=== PATIENT | female | born 1955 ===

== ENCOUNTER 2018-07-27 13:54 | Inpatient (IN) | payer MEDICARE, MEDICAID ==
--- NOTE | 2018-07-27 14:36 | C.PDOC ---
History Of Present Illness 63 year old female presents to the emergency department with complaints of a sudden onset of dizziness and fell at her half-way, injuring her left knee. Upon EMS arrival, patient was described as hypotensive with "blue lips". Patient has no complaints here at this time. She denies chest pain, shortness of breath, headache, dizziness, numbness, weakness. Time Seen by Provider: 07/27/18 13:58 Chief Complaint (Nursing): Dizziness/Lightheaded History Per: Patient History/Exam Limitations: no limitations Onset/Duration Of Symptoms: Hrs Current Symptoms Are (Timing): Still Present Activity At Onset Of Symptoms: Standing Seizure Or Post-ictal Symptoms: None Possible Causative Factor(s): Other (dizziness) Past Medical History Reviewed: Historical Data, Nursing Documentation, Vital Signs Vital Signs: Last Vital Signs Temp 98.7 F 07/27/18 14:14 Pulse 118 H 07/27/18 18:32 Resp 24 07/27/18 18:32 BP 122/65 07/27/18 18:38 Pulse Ox 20 L 07/27/18 18:32 - Medical History PMH: Bipolar Disorder, CHF, Depression, HTN, Hypercholesterolemia Denies: Chronic Kidney Disease Surgical History: No Surg Hx, Appendectomy Family History: States: No Known Family Hx - Social History Hx Alcohol Use: No Hx Substance Use: No - Immunization History Hx Tetanus Toxoid Vaccination: No Hx Influenza Vaccination: No Hx Pneumococcal Vaccination: No Review Of Systems Except As Marked, All Systems Reviewed And Found Negative. Cardiovascular: Negative for: Chest Pain Respiratory: Negative for: Shortness of Breath Musculoskeletal: Negative for: Leg Pain Neurological: Negative for: Weakness, Numbness, Headache, Dizziness Physical Exam - Physical Exam Appears: Non-toxic, No Acute Distress Skin: Warm, Dry Head: Atraumatic, Normacephalic Eye(s): bilateral: Normal Inspection Neck: Normal, Supple Chest: Symmetrical Cardiovascular: Rhythm Irregular (irregularly irregular) Respiratory: Normal Breath Sounds, No Rales, No Rhonchi, No Wheezing Gastrointestinal/Abdominal: Normal Exam, Soft, No Tenderness, No Guarding, No Rebound Extremity: Normal ROM, No Tenderness, No Swelling ED Course And Treatment - Laboratory Results Result Diagrams: 07/27/18 14:40 07/27/18 14:40 ECG Rhythm: Atrial Fibrillation (at 136bpm) O2 Sat by Pulse Oximetry: 95 (RA) Pulse Ox Interpretation: Normal Progress Note: Plan: EKG. BNP. CMP. Troponin. CBC. PTT. Prothrombin Time. CXR. Cardizem 10mg IVP. Critical Care Time 35 minutes Critical Care Time - Critical Care Note Total Time (in mins): 50 Documented critical care: time excludes all time spent performing seperately billable procedures. Medical Decision Making Medical Decision Making: Patient was found to have low blood pressure. NS IVF given. Cardizem 10 IV given. The patient remains awake and alert. HR remains high but BP is 100/60. Lopressor 2.5 IV given. HR still high The case was discussed with Dr. Caputo (Mining Analyst) who states that the patient most likely will not require ICU admission. The case was discussed with Dr. Mckeon who agrees to admit the patient to tele. Disposition - Disposition Disposition: HOSPITALIZED Disposition Time: 18:30 Condition: SERIOUS - POA Present On Arrival: None - Clinical Impression Clinical Impression: Syncope, Rapid atrial fibrillation - PA / FIELD CARE ADVOCATE / Resident Statement MD/DO has reviewed & agrees with the documentation as recorded. - Scribe Statement The provider has reviewed the documentation as recorded by the Scribe (Pranav Ashby) All medical record entries made by the Scribe were at my direction and personally dictated by me. I have reviewed the chart and agree that the record accurately reflects my personal performance of the history, physical exam, medical decision making, and the department course for this patient. I have also personally directed, reviewed, and agree with the discharge instructions and disposition.
[2018-07-27 14:43] LABS: BASO # 0.1 K/uL (0.0-0.2); LYMPH # 1.2 K/uL (1.0-4.3); LYMPH % 9.4 % (20.0-40.0); MEAN CELL VOLUME 84.2 fL (81.0-99.0); MEAN CORPUSCULAR HEMOGLOBIN 29.6 pg (27.0-31.0); MEAN CORPUSCULAR HGB CONC 35.2 g/dL (33.0-37.0); MEAN PLATELET VOLUME 8.3 fL (7.2-11.7); MONO # 0.4 K/uL (0.0-0.8); MONO % 2.8 % (0.0-10.0); NEUT # 11.4 K/uL (1.8-7.0); NEUT % 86.8 % (50.0-75.0); NRBC % 0.2 % (0.0-2.0); RBC 2.87 Mil/uL (3.80-5.20); RED CELL DISTRIBUTION WIDTH 16.2 % (11.5-14.5); WHITE BLOOD COUNT 13.1 K/uL (4.8-10.8)
[2018-07-27 14:51] LABS: HEMOGLOBIN 8.5 g/dL (11.0-16.0); INR 1.8; PLATELET COUNT 403 K/uL (130-400); PROTHROMBIN TIME 19.4 SECONDS (9.7-12.2)
[2018-07-27 15:10] LABS: ALB/GLOB RATIO 1.6 (1.0-2.1); ALBUMIN 3.4 g/dL (3.5-5.0); ALT/SGPT 24 U/L (9-52); AST/SGOT 21 U/L (14-36); BLOOD UREA NITROGEN 64 mg/dL (7-17); CALCIUM 8.4 mg/dl (8.6-10.4); GFR NON-AFRICAN AMERICAN > 60
[2018-07-27 15:15] LABS: LYMPHOCYTE 8 % (20-40); MONOCYTE 1 % (0-10); NEUTROPHIL 91 % (50-75); PLATELET ESTIMATE SLIGHTLY INCREASED (NORMAL); TOTAL CELLS COUNTED 100
[2018-07-27 15:16] LABS: ANISOCYTOSIS SLIGHT; HYPOCHROMIC SLIGHT; POLYCHROMIC SLIGHT
[2018-07-27 15:21] LABS: B-TYPE NATRIURETIC PEPTIDE 786 pg/mL (0-900)
[2018-07-27] MEDS ORDERED: Metoprolol 1 mg/ml Inj IVP STA (15:29)
[2018-07-27] MEDS ORDERED: Sodium Chloride 0.9% 1,000 ML IV ONE (15:35)
--- NOTE | 2018-07-27 15:46 | RAD ---
Date of service: 07/27/2018 PROCEDURE: CHEST RADIOGRAPH, 1 VIEW HISTORY: chest pain COMPARISON: 07/30/2020 50 FINDINGS: LUNGS: Clear. PLEURA: No pneumothorax or pleural fluid seen. CARDIOVASCULAR: Normal. OSSEOUS STRUCTURES: No significant abnormalities. VISUALIZED UPPER ABDOMEN: Normal. OTHER FINDINGS: None. IMPRESSION: No active disease.
[2018-07-27] MEDS ORDERED: Sodium Chloride 0.9% 1,000 ML ONE (15:50)
[2018-07-27] MEDS ORDERED: Metoprolol 1 mg/ml Inj IVP ONE ×3 (15:50→18:37)
[2018-07-27 16:00] LABS: SQUAMOUS EPITHIAL < 1 /hpf (0-5); URINE BACTERIA RARE (<OCC); URINE BILIRUBIN NEGATIVE (NEGATIVE); URINE BLOOD NEGATIVE (NEGATIVE); URINE CLARITY Clear (Clear); URINE COLOR Yellow (YELLOW); URINE GLUCOSE (UA) 1+ mg/dL (Normal); URINE LEUKOCYTE ESTERASE NEG Leu/uL (Negative); URINE PROTEIN NEGATIVE (NEGATIVE); URINE UROBILINOGEN NORMAL mg/dL (0.2-1.0)
[2018-07-27 16:14] LABS: VENOUS BLOOD GAS BASE EXCESS 0.1 mmol/L (0.0-2.0); VENOUS BLOOD GAS PCO2 39 mmHg (40-60); VENOUS BLOOD GAS PO2 20 mm/Hg (30-55); VENOUS BLOOD PH 7.41 (7.32-7.43)
[2018-07-27] MEDS: Sodium Chloride 0.9% 1,000 ML IV SCH (23:15)
[2018-07-28 00:17] LABS: HEMOGLOBIN 6.8 g/dL (11.0-16.0); MEAN CELL VOLUME 85.9 fL (81.0-99.0); MEAN CORPUSCULAR HEMOGLOBIN 28.7 pg (27.0-31.0); MEAN CORPUSCULAR HGB CONC 33.5 g/dL (33.0-37.0); MEAN PLATELET VOLUME 8.5 fL (7.2-11.7); RBC 2.35 Mil/uL (3.80-5.20); RED CELL DISTRIBUTION WIDTH 16.4 % (11.5-14.5); WHITE BLOOD COUNT 14.5 K/uL (4.8-10.8)
[2018-07-28] MEDS ORDERED: Pantoprazole 80 MG in Sodium Chloride 0.9% 100 ML IVP SCH (01:00)
--- NOTE | 2018-07-28 01:06 | CP.PCM.CON ---
<Carlin Busch - Last Filed: 07/28/18 00:55> History of Present Illness - History of Present Illness History of Present Illness: GI fellow PGY4, consult note. Marisol Phillips is a pleasant 63yo female with hx of afib on OAC and arthritis taking NSAIDs presenting with syncope. Patient fell after rising from the bathroom and admits LOC. She had been feeling lightheaded throughout the day. She also admits 1 episode of black emesis. She has no known history of gi bleed in the past. She does not drink alcohol and has no known liver disease. PMHx - as above. PSHx - Denies any major surgeries. She has remote history of EGD but does not know when or why. FMHx - Denies hx of liver, stomach or colon disease. SocHx - denies smoking and etoh use. She lives in senior care. 12pt ROS completed and negative except for above. Past Patient History - Infectious Disease Hx of Infectious Diseases: None - Past Medical History & Family History Past Medical History?: Yes - Past Social History Smoking Status: Never Smoked - CARDIAC Hx Congestive Heart Failure: Yes Hx Hypercholesterolemia: Yes Hx Hypertension: Yes - PULMONARY Hx Respiratory Disorders: No - NEUROLOGICAL Hx Neurological Disorder: No - HEENT Hx HEENT Problems: Yes Other/Comment: WEARS GLASSES - RENAL Hx Chronic Kidney Disease: No - ENDOCRINE/METABOLIC Hx Endocrine Disorders: No - HEMATOLOGICAL/ONCOLOGICAL Hx Blood Disorders: No Hx Blood Transfusions: No - INTEGUMENTARY Hx Dermatological Problems: No - MUSCULOSKELETAL/RHEUMATOLOGICAL Hx Musculoskeletal Disorders: No Hx Falls: Yes - GASTROINTESTINAL Hx Gastrointestinal Disorders: No - GENITOURINARY/GYNECOLOGICAL Hx Genitourinary Disorders: No - PSYCHIATRIC Hx Bipolar Disorder: Yes Hx Depression: Yes Hx Substance Use: No - SURGICAL HISTORY Hx Appendectomy: Yes - ANESTHESIA Hx Anesthesia: No Hx Anesthesia Reactions: No Hx Malignant Hyperthermia: No Meds Allergies/Adverse Reactions: Allergies Allergy/AdvReac Type Severity Reaction Status Date / Time Penicillins Allergy Intermediate Verified 07/27/18 14:10 - Medications Medications: Current Medications Amlodipine Besylate (Norvasc) 10 mg PO DAILY [facility] Aspirin (Ecotrin) 81 mg PO DAILY [facility] Bisoprolol Fumarate/HCTZ (Ziac 5-6.25 Mg) 1 tab PO DAILY [facility] Haloperidol (Haldol) 5 mg PO DAILY [facility] Diltiazem HCl 125 mg/ Sodium (Chloride) 125 mls @ 10 mls/hr IV .[id number] [facility] PRN Reason: 10 MG/HR Last Admin: 07/27/18 22:30 Dose: 10 mls/hr Sodium Chloride (Sodium Chloride 0.9%) 1,000 mls @ 100 mls/hr IV .Q10H [facility] Last Admin: 07/27/18 23:15 Dose: 100 mls/hr Pantoprazole Sodium 80 mg/ (Sodium Chloride) 100 mls @ 10 mls/hr IVP .Q10H [facility] PRN Reason: 8 MG/HR Metoprolol Tartrate (Lopressor) 50 mg PO Q12H [facility] Last Admin: 07/27/18 23:43 Dose: 50 mg Pantoprazole Sodium (Protonix Inj) 40 mg IVP Q12H [facility] Last Admin: 07/27/18 23:13 Dose: 40 mg Pantoprazole Sodium (Protonix Inj) 80 mg IVP STAT STA Stop: 07/28/18 00:48 Quetiapine Fumarate (Seroquel) 200 mg PO [facility] Last Admin: 07/27/18 22:12 Dose: 200 mg Saccharomyces Boulardii (Florastor) 250 mg PO TID [facility] Spironolactone (Aldactone) 25 mg PO DAILY [facility] Temazepam (Restoril) 15 mg PO [facility] Last Admin: 07/27/18 22:11 Dose: 15 mg Trazodone HCl (Desyrel) 50 mg PO [facility] Last Admin: 07/27/18 22:11 Dose: 50 mg Physical Exam - Constitutional Appears: Non-toxic, No Acute Distress - Head Exam Head Exam: ATRAUMATIC, NORMAL INSPECTION - Eye Exam Eye Exam: EOMI, Normal appearance - ENT Exam ENT Exam: Mucous Membranes Moist, Normal Exam - Respiratory Exam Respiratory Exam: Clear to Auscultation Bilateral, NORMAL BREATHING PATTERN. absent: Wheezes - Cardiovascular Exam Cardiovascular Exam: Tachycardia, REGULAR RHYTHM - GI/Abdominal Exam GI & Abdominal Exam: Normal Bowel Sounds, Soft. absent: Organomegaly, Tenderness - Rectal Exam Rectal Exam: Black Stool - Extremities Exam Extremities exam: Positive for: normal inspection - Neurological Exam Neurological exam: Alert, CN II-XII Intact, Oriented x3 - Psychiatric Exam Psychiatric exam: Flat Affect - Skin Skin Exam: Pallor, Warm Results - Vital Signs Recent Vital Signs: Last Vital Signs Temp 99.9 F H 07/27/18 23:00 Pulse 132 H 07/27/18 23:48 Resp 20 07/27/18 23:00 BP 110/68 07/27/18 23:00 Pulse Ox 99 07/27/18 23:00 - Labs Result Diagrams: 07/28/18 00:08 07/27/18 14:40 Labs: Laboratory Results - last 24 hr 07/27/18 07/27/18 07/27/18 14:40 14:40 14:40 WBC 13.1 H RBC 2.87 L Hgb 8.5 L D Hct 24.2 L MCV 84.2 MCH 29.6 MCHC 35.2 RDW 16.2 H Plt Count 403 H D MPV 8.3 Neut % (Auto) 86.8 H Lymph % (Auto) 9.4 L Butler % (Auto) 2.8 Eos % (Auto) 0.0 Baso % (Auto) 1.0 Neut # (Auto) 11.4 H Lymph # (Auto) 1.2 Butler # (Auto) 0.4 Eos # (Auto) 0.0 Baso # (Auto) 0.1 Neutrophils % (Manual) 91 H Lymphocytes % (Manual) 8 L Monocytes % (Manual) 1 Platelet Estimate Slightly increased H Polychromasia Slight Hypochromasia (manual) Slight Anisocytosis (manual) Slight PT 19.4 H INR 1.8 APTT 35 H pO2 VBG pH VBG pCO2 VBG HCO3 VBG Total CO2 VBG O2 Sat (Calc) VBG Base Excess VBG Potassium Glucose Lactate FiO2 Sodium 142 Potassium 4.2 Chloride 110 H Carbon Dioxide 20 L Anion Gap 17 BUN 64 H Creatinine 0.9 Est GFR ( Amer) > 60 Est GFR (Non-Af Amer) > 60 Random Glucose 230 H Lactic Acid Calcium 8.4 L Total Bilirubin 0.5 AST 21 ALT 24 Alkaline Phosphatase 36 L Troponin I < 0.0120 NT-Pro-B Natriuret Pep 786 Total Protein 5.6 L Albumin 3.4 L D Globulin 2.2 Albumin/Globulin Ratio 1.6 Venous Blood Potassium Urine Color Urine Clarity Urine pH Ur Specific [place] Urine Protein Urine Glucose (UA) Urine Ketones Urine Blood Urine Nitrate Urine Bilirubin Urine Urobilinogen Ur Leukocyte Esterase Urine WBC (Auto) Urine RBC (Auto) Ur Squamous Epith Cells Urine Bacteria 07/27/18 07/27/18 07/27/18 15:51 16:10 21:17 WBC RBC Hgb Hct MCV MCH MCHC RDW Plt Count MPV Neut % (Auto) Lymph % (Auto) Butler % (Auto) Eos % (Auto) Baso % (Auto) Neut # (Auto) Lymph # (Auto) Butler # (Auto) Eos # (Auto) Baso # (Auto) Neutrophils % (Manual) Lymphocytes % (Manual) Monocytes % (Manual) Platelet Estimate Polychromasia Hypochromasia (manual) Anisocytosis (manual) PT INR APTT pO2 20 L VBG pH 7.41 VBG pCO2 39 L VBG HCO3 23.2 VBG Total CO2 25.9 VBG O2 Sat (Calc) 29.3 L VBG Base Excess 0.1 VBG Potassium 4.1 Glucose 203 H Lactate 2.5 H FiO2 21.0 Sodium 143.0 Potassium Chloride 112.0 H Carbon Dioxide Anion Gap BUN Creatinine Est GFR ( Amer) Est GFR (Non-Af Amer) Random Glucose Lactic Acid 3.1 H Calcium Total Bilirubin AST ALT Alkaline Phosphatase Troponin I NT-Pro-B Natriuret Pep Total Protein Albumin Globulin Albumin/Globulin Ratio Venous Blood Potassium 4.1 Urine Color Yellow Urine Clarity Clear Urine pH 5.0 Ur Specific [place] 1.017 Urine Protein Negative Urine Glucose (UA) 1+ Urine Ketones Negative Urine Blood Negative Urine Nitrate Negative Urine Bilirubin Negative Urine Urobilinogen Normal Ur Leukocyte Esterase Neg Urine WBC (Auto) < 1 Urine RBC (Auto) < 1 Ur Squamous Epith Cells < 1 Urine Bacteria Rare 07/28/18 00:08 WBC 14.5 H RBC 2.35 L Hgb 6.8 L Hct 20.2 L MCV 85.9 MCH 28.7 MCHC 33.5 RDW 16.4 H Plt Count 337 MPV 8.5 Neut % (Auto) Lymph % (Auto) Butler % (Auto) Eos % (Auto) Baso % (Auto) Neut # (Auto) Lymph # (Auto) Butler # (Auto) Eos # (Auto) Baso # (Auto) Neutrophils % (Manual) Lymphocytes % (Manual) Monocytes % (Manual) Platelet Estimate Polychromasia Hypochromasia (manual) Anisocytosis (manual) PT INR APTT pO2 VBG pH VBG pCO2 VBG HCO3 VBG Total CO2 VBG O2 Sat (Calc) VBG Base Excess VBG Potassium Glucose Lactate FiO2 Sodium Potassium Chloride Carbon Dioxide Anion Gap BUN Creatinine Est GFR ( Amer) Est GFR (Non-Af Amer) Random Glucose Lactic Acid Calcium Total Bilirubin AST ALT Alkaline Phosphatase Troponin I NT-Pro-B Natriuret Pep Total Protein Albumin Globulin Albumin/Globulin Ratio Venous Blood Potassium Urine Color Urine Clarity Urine pH Ur Specific [place] Urine Protein Urine Glucose (UA) Urine Ketones Urine Blood Urine Nitrate Urine Bilirubin Urine Urobilinogen Ur Leukocyte Esterase Urine WBC (Auto) Urine RBC (Auto) Ur Squamous Epith Cells Urine Bacteria Assessment & Plan - Assessment and Plan (Free Text) Assessment: 63F with hx of Afib on OAC, aspirin and recent NSAID use for arthritis presenting with syncope, anemia and melena on rectal exam due to upper GI bleed. #Acute blood loss anemia due to upper GI bleed #Afib on OAC #Arthritis taking NSAIDs #HTN #Psychiatric disorder PLAN: [place] score 14 Transfer patient to ICU Stat pRBC x 2units PPI bolus and drip Plan for EGD in AM after medically stable. Consent signed and in chart. NPO Hold asa, OAC, nsaids Check Hb q6h I personally discussed case with Dr. Trujillo and ICU attending upon transfer request. - Date & Time Date: 07/28/18 Time: 01:15 <David Trujillo - Last Filed: 07/28/18 12:27> Meds - Medications Medications: Current Medications Bisoprolol Fumarate/HCTZ (Ziac 5-6.25 Mg) 1 tab PO DAILY [facility] Last Admin: 07/28/18 10:56 Dose: 1 tab Diltiazem HCl (Cardizem) 60 mg PO Q8H [facility] Last Admin: 07/28/18 11:34 Dose: Not Given Haloperidol (Haldol) 5 mg PO DAILY [facility] Last Admin: 07/28/18 10:56 Dose: 5 mg Sodium Chloride (Sodium Chloride 0.9%) 1,000 mls @ 100 mls/hr IV .Q10H [facility] Last Admin: 07/27/18 23:15 Dose: 100 mls/hr Diltiazem HCl 125 mg/ Sodium (Chloride) 125 mls @ 5 mls/hr IV .Q24H [facility]; 5 MG/ HR PRN Reason: Protocol Last Admin: 07/28/18 02:00 Dose: 5 mg/hr, 5 mls/hr Metoprolol Tartrate (Lopressor) 50 mg PO Q12H [facility] Last Admin: 07/27/18 23:43 Dose: 50 mg Pantoprazole Sodium (Protonix Inj) 40 mg IVP Q12H [facility] Last Admin: 07/28/18 10:57 Dose: 40 mg Quetiapine Fumarate (Seroquel) 200 mg PO [facility] Last Admin: 07/27/18 22:12 Dose: 200 mg Saccharomyces Boulardii (Florastor) 250 mg PO TID [facility] Last Admin: 07/28/18 10:57 Dose: 250 mg Spironolactone (Aldactone) 25 mg PO DAILY [facility] Last Admin: 07/28/18 10:57 Dose: 25 mg Temazepam (Restoril) 15 mg PO [facility] Last Admin: 07/27/18 22:11 Dose: 15 mg Trazodone HCl (Desyrel) 50 mg PO [facility] Last Admin: 07/27/18 22:11 Dose: 50 mg Results - Vital Signs Recent Vital Signs: Last Vital Signs Temp 98.7 F 07/28/18 08:20 Pulse 103 H 07/28/18 11:02 Resp 24 07/28/18 11:02 BP 113/67 07/28/18 11:02 Pulse Ox 100 07/28/18 11:02 - Labs Result Diagrams: 07/28/18 11:58 07/28/18 06:54 Labs: Laboratory Results - last 24 hr 07/27/18 07/27/18 07/27/18 14:40 14:40 14:40 WBC 13.1 H RBC 2.87 L Hgb 8.5 L D Hct 24.2 L MCV 84.2 MCH 29.6 MCHC 35.2 RDW 16.2 H Plt Count 403 H D MPV 8.3 Neut % (Auto) 86.8 H Lymph % (Auto) 9.4 L Butler % (Auto) 2.8 Eos % (Auto) 0.0 Baso % (Auto) 1.0 Neut # (Auto) 11.4 H Lymph # (Auto) 1.2 Butler # (Auto) 0.4 Eos # (Auto) 0.0 Baso # (Auto) 0.1 Neutrophils % (Manual) 91 H Lymphocytes % (Manual) 8 L Monocytes % (Manual) 1 Platelet Estimate Slightly increased H Polychromasia Slight Hypochromasia (manual) Slight Anisocytosis (manual) Slight PT 19.4 H INR 1.8 APTT 35 H pO2 VBG pH VBG pCO2 VBG HCO3 VBG Total CO2 VBG O2 Sat (Calc) VBG Base Excess VBG Potassium Glucose Lactate FiO2 Sodium 142 Potassium 4.2 Chloride 110 H Carbon Dioxide 20 L Anion Gap 17 BUN 64 H Creatinine 0.9 Est GFR ( Amer) > 60 Est GFR (Non-Af Amer) > 60 Random Glucose 230 H Lactic Acid Calcium 8.4 L Phosphorus Magnesium Total Bilirubin 0.5 AST 21 ALT 24 Alkaline Phosphatase 36 L Troponin I < 0.0120 NT-Pro-B Natriuret Pep 786 Total Protein 5.6 L Albumin 3.4 L D Globulin 2.2 Albumin/Globulin Ratio 1.6 Venous Blood Potassium Urine Color Urine Clarity Urine pH Ur Specific [place] Urine Protein Urine Glucose (UA) Urine Ketones Urine Blood Urine Nitrate Urine Bilirubin Urine Urobilinogen Ur Leukocyte Esterase Urine WBC (Auto) Urine RBC (Auto) Ur Squamous Epith Cells Urine Bacteria Blood Type Antibody Screen 07/27/18 07/27/18 07/27/18 15:51 16:10 21:17 WBC RBC Hgb Hct MCV MCH MCHC RDW Plt Count MPV Neut % (Auto) Lymph % (Auto) Butler % (Auto) Eos % (Auto) Baso % (Auto) Neut # (Auto) Lymph # (Auto) Butler # (Auto) Eos # (Auto) Baso # (Auto) Neutrophils % (Manual) Lymphocytes % (Manual) Monocytes % (Manual) Platelet Estimate Polychromasia Hypochromasia (manual) Anisocytosis (manual) PT INR APTT pO2 20 L VBG pH 7.41 VBG pCO2 39 L VBG HCO3 23.2 VBG Total CO2 25.9 VBG O2 Sat (Calc) 29.3 L VBG Base Excess 0.1 VBG Potassium 4.1 Glucose 203 H Lactate 2.5 H FiO2 21.0 Sodium 143.0 Potassium Chloride 112.0 H Carbon Dioxide Anion Gap BUN Creatinine Est GFR ( Amer) Est GFR (Non-Af Amer) Random Glucose Lactic Acid 3.1 H Calcium Phosphorus Magnesium Total Bilirubin AST ALT Alkaline Phosphatase Troponin I NT-Pro-B Natriuret Pep Total Protein Albumin Globulin Albumin/Globulin Ratio Venous Blood Potassium 4.1 Urine Color Yellow Urine Clarity Clear Urine pH 5.0 Ur Specific [place] 1.017 Urine Protein Negative Urine Glucose (UA) 1+ Urine Ketones Negative Urine Blood Negative Urine Nitrate Negative Urine Bilirubin Negative Urine Urobilinogen Normal Ur Leukocyte Esterase Neg Urine WBC (Auto) < 1 Urine RBC (Auto) < 1 Ur Squamous Epith Cells < 1 Urine Bacteria Rare Blood Type Antibody Screen 07/28/18 07/28/18 07/28/18 00:08 01:22 06:54 WBC 14.5 H 9.2 RBC 2.35 L 3.03 L Hgb 6.8 L 8.9 L D Hct 20.2 L 26.1 L MCV 85.9 86.0 MCH 28.7 29.5 MCHC 33.5 34.2 RDW 16.4 H 15.3 H Plt Count 337 95 L D MPV 8.5 8.7 Neut % (Auto) Lymph % (Auto) Butler % (Auto) Eos % (Auto) Baso % (Auto) Neut # (Auto) Lymph # (Auto) Butler # (Auto) Eos # (Auto) Baso # (Auto) Neutrophils % (Manual) Lymphocytes % (Manual) Monocytes % (Manual) Platelet Estimate Polychromasia Hypochromasia (manual) Anisocytosis (manual) PT INR APTT pO2 VBG pH VBG pCO2 VBG HCO3 VBG Total CO2 VBG O2 Sat (Calc) VBG Base Excess VBG Potassium Glucose Lactate FiO2 Sodium Potassium Chloride Carbon Dioxide Anion Gap BUN Creatinine Est GFR ( Amer) Est GFR (Non-Af Amer) Random Glucose Lactic Acid Calcium Phosphorus Magnesium Total Bilirubin AST ALT Alkaline Phosphatase Troponin I NT-Pro-B Natriuret Pep Total Protein Albumin Globulin Albumin/Globulin Ratio Venous Blood Potassium Urine Color Urine Clarity Urine pH Ur Specific [place] Urine Protein Urine Glucose (UA) Urine Ketones Urine Blood Urine Nitrate Urine Bilirubin Urine Urobilinogen Ur Leukocyte Esterase Urine WBC (Auto) Urine RBC (Auto) Ur Squamous Epith Cells Urine Bacteria Blood Type O POSITIVE Antibody Screen Negative 07/28/18 07/28/18 07/28/18 06:54 06:54 11:58 WBC 9.6 RBC 2.76 L Hgb 8.4 L Hct 23.7 L MCV 85.9 MCH 30.4 MCHC 35.4 RDW 15.2 H Plt Count 230 D MPV 8.3 Neut % (Auto) Lymph % (Auto) Butler % (Auto) Eos % (Auto) Baso % (Auto) Neut # (Auto) Lymph # (Auto) Butler # (Auto) Eos # (Auto) Baso # (Auto) Neutrophils % (Manual) Lymphocytes % (Manual) Monocytes % (Manual) Platelet Estimate Polychromasia Hypochromasia (manual) Anisocytosis (manual) PT 13.5 H D INR 1.2 D APTT pO2 VBG pH VBG pCO2 VBG HCO3 VBG Total CO2 VBG O2 Sat (Calc) VBG Base Excess VBG Potassium Glucose Lactate FiO2 Sodium 145 Potassium 4.1 Chloride 114 H Carbon Dioxide 19 L Anion Gap 16 BUN 47 H Creatinine 0.8 Est GFR ( Amer) > 60 Est GFR (Non-Af Amer) > 60 Random Glucose 137 H Lactic Acid Calcium 8.5 L Phosphorus 2.7 Magnesium 1.9 Total Bilirubin 0.6 AST 17 ALT 26 Alkaline Phosphatase 29 L Troponin I NT-Pro-B Natriuret Pep Total Protein 5.3 L Albumin 3.2 L Globulin 2.1 L Albumin/Globulin Ratio 1.5 Venous Blood Potassium Urine Color Urine Clarity Urine pH Ur Specific [place] Urine Protein Urine Glucose (UA) Urine Ketones Urine Blood Urine Nitrate Urine Bilirubin Urine Urobilinogen Ur Leukocyte Esterase Urine WBC (Auto) Urine RBC (Auto) Ur Squamous Epith Cells Urine Bacteria Blood Type Antibody Screen Attending/Attestation - Attestation I have personally seen and examined this patient.: Yes I have fully participated in the care of the patient.: Yes I have reviewed all pertinent clinical information: Yes Notes (Text): 07/28/18 12:25 This is a 63 yr old F with hx of Afib on OAC, aspirin and recent NSAID use for arthritis presenting with syncope, anemia and melena on rectal exam due to upper GI bleed. Hb/Hct trend with PPI gtt and 2 large bore IV. Plan is to scope in am after appropriate resuscitation. Hold Biodesix
--- NOTE | 2018-07-28 01:42 | CP.CCUPN ---
CCU Subjective - Physician Review Subjective (Free Text): 07/28/18 01:40 Called by GI fellow to evaluate the patient for GI bleeding, possible upper The Patient was seen and examined at the bedside, Medical records reviewed, and management issues were discussed and formulated with the house staff. Events reviewed. 63 years old female with PMHx of HTN, Hypercholesterolemia, CHF, Depression and Bipolar Disorder Who initially presented to the emergency department with complaints of a sudden onset of dizziness and fell at her long term, injuring her left knee. On the telemetry had one eipsode of coffee ground vominting with H/H drop Patient alert, awake, denies chest pain, shortness of breath, headache, dizziness, numbness, weakness, Nasuea or vomiting. No prior H/O GI bleed or endoscopy Patient on Xarelto and taking NSAIDs for artheritis Critical Care Time Spent (in minutes): 45 CCU Objective - Vital Signs / Intake & Output Vital Signs (Last 4 hours): Vital Signs Temp Pulse Resp BP Pulse Ox 07/27/18 23:48 132 H 07/27/18 23:00 99.9 F H 120 H 20 110/68 99 Intake and Output (Last 8hrs): Intake & Output 07/27/18 07/27/18 07/28/18 14:59 22:59 06:59 Weight 160 lb - Physical Exam Head: Positive for: Atraumatic, Normocephalic Pupils: Positive for: PERRL Extroacular Muscles: Positive for: EOMI Conjunctiva: Positive for: Normal Mouth: Positive for: Moist Mucous Membranes Neck: Positive for: Normal Range of Motion Respiratory/Chest: Positive for: Clear to Auscultation, Good Air Exchange. Negative for: Respiratory Distress, Accessory Muscle Use Cardiovascular: Positive for: Regular Rate and Rhythm, Normal S1, S2. Negative for: Murmurs Abdomen: Positive for: Tenderness, Distention, Normal Bowel Sounds Psychiatric: Positive for: Alert, Oriented x 3 - Medications Active Medications: Active Medications Generic Name Dose Route Start Last Admin Trade Name Freq PRN Reason Stop Dose Admin Amlodipine Besylate 10 mg 07/28/18 10:00 Norvasc PO DAILY [facility] Bisoprolol Fumarate/HCTZ 1 tab 07/28/18 10:00 Ziac 5-6.25 Mg PO DAILY [facility] Haloperidol 5 mg 07/28/18 10:00 Haldol PO DAILY [facility] Diltiazem HCl 125 mg/ Sodium 125 mls @ 10 mls/hr 07/27/18 21:10 07/27/18 22: 30 Chloride IV 10 mls/hr .[id number] CHET Administration 10 MG/HR Sodium Chloride 1,000 mls @ 100 mls/hr 07/27/18 22:45 07/27/18 23:15 Sodium Chloride 0.9% IV 100 mls/hr .Q10H [facility]T Administration Pantoprazole Sodium 80 mg/ 100 mls @ 10 mls/hr 07/28/18 01:00 Sodium Chloride IVP .Q10H CHET 8 MG/HR Metoprolol Tartrate 50 mg 07/27/18 22:45 07/27/18 23:43 Lopressor PO 50 mg Q12H CHET Administration Pantoprazole Sodium 40 mg 07/27/18 22:45 07/27/18 23:13 Protonix Inj IVP 40 mg Q12H CHET Administration Quetiapine Fumarate 200 mg 07/27/18 22:00 07/27/18 22:12 Seroquel PO 200 mg HS CHET Administration Saccharomyces Boulardii 250 mg 07/28/18 10:00 Florastor PO TID [facility]T Spironolactone 25 mg 07/28/18 10:00 Aldactone PO DAILY [facility] Temazepam 15 mg 07/27/18 22:00 07/27/18 22:11 Restoril PO 15 mg HS CHET Administration Trazodone HCl 50 mg 07/27/18 22:00 07/27/18 22:11 Desyrel PO 50 mg HS CHET Administration - Patient Studies Lab Studies: Lab Studies 07/28/18 07/27/18 07/27/18 Range/Units 00:08 21:17 16:10 WBC 14.5 H (4.8-10.8) K/uL RBC 2.35 L (3.80-5.20) Mil/uL Hgb 6.8 L (11.0-16.0) g/dL Hct 20.2 L (34.0-47.0) % MCV 85.9 (81.0-99.0) fL MCH 28.7 (27.0-31.0) pg MCHC 33.5 (33.0-37.0) g/dL RDW 16.4 H (11.5-14.5) % Plt Count 337 (130-400) K/uL MPV 8.5 (7.2-11.7) fL Neut % (Auto) (50.0-75.0) % Lymph % (Auto) (20.0-40.0) % Bowman % (Auto) (0.0-10.0) % Eos % (Auto) (0.0-4.0) % Baso % (Auto) (0.0-2.0) % Neut # (Auto) (1.8-7.0) K/uL Lymph # (Auto) (1.0-4.3) K/uL Bowman # (Auto) (0.0-0.8) K/uL Eos # (Auto) (0.0-0.7) K/uL Baso # (Auto) (0.0-0.2) K/uL Neutrophils % (Manual) (50-75) % Lymphocytes % (Manual) (20-40) % Monocytes % (Manual) (0-10) % Platelet Estimate (NORMAL) Polychromasia Hypochromasia (manual) Anisocytosis (manual) PT (9.7-12.2) SECONDS INR APTT (21-34) SECONDS pO2 20 L (30-55) mm/Hg VBG pH 7.41 (7.32-7.43) VBG pCO2 39 L (40-60) mmHg VBG HCO3 23.2 mmol/L VBG Total CO2 25.9 (22-28) mmol/L VBG O2 Sat (Calc) 29.3 L (40-65) % VBG Base Excess 0.1 (0.0-2.0) mmol/L VBG Potassium 4.1 (3.6-5.2) mmol/L Glucose 203 H (65-105) mg/dl Lactate 2.5 H (0.7-2.1) mmol/L FiO2 21.0 % Sodium 143.0 (132-148) mmol/L Potassium (3.6-5.2) mmol/L Chloride 112.0 H (98-107) mmol/L Carbon Dioxide (22-30) mmol/L Anion Gap (10-20) BUN (7-17) mg/dL Creatinine (0.7-1.2) mg/dL Est GFR ( Amer) Est GFR (Non-Af Amer) Random Glucose (65-105) mg/dL Lactic Acid 3.1 H (0.7-2.1) mmol/L Calcium (8.6-10.4) mg/dl Total Bilirubin (0.2-1.3) mg/dL AST (14-36) U/L ALT (9-52) U/L Alkaline Phosphatase (38-126) U/L Troponin I (0.00-0.120) ng/mL NT-Pro-B Natriuret Pep (0-900) pg/mL Total Protein (6.3-8.3) g/dL Albumin (3.5-5.0) g/dL Globulin (2.2-3.9) gm/dL Albumin/Globulin Ratio (1.0-2.1) Venous Blood Potassium 4.1 (3.6-5.2) mmol/L Urine Color (YELLOW) Urine Clarity (Clear) Urine pH (5.0-8.0) Ur Specific Seco (1.003-1.030) Urine Protein (NEGATIVE) mg/dL Urine Glucose (UA) (Normal) mg/dL Urine Ketones (NEGATIVE) mg/dL Urine Blood (NEGATIVE) Urine Nitrate (NEGATIVE) Urine Bilirubin (NEGATIVE) Urine Urobilinogen (0.2-1.0) mg/dL Ur Leukocyte Esterase (Negative) Jt/uL Urine WBC (Auto) (0-5) /hpf Urine RBC (Auto) (0-3) /hpf Ur Squamous Epith Cells (0-5) /hpf Urine Bacteria (<OCC) 07/27/18 07/27/18 07/27/18 Range/Units 15:51 14:40 14:40 WBC (4.8-10.8) K/uL RBC (3.80-5.20) Mil/uL Hgb (11.0-16.0) g/dL Hct (34.0-47.0) % MCV (81.0-99.0) fL MCH (27.0-31.0) pg MCHC (33.0-37.0) g/dL RDW (11.5-14.5) % Plt Count (130-400) K/uL MPV (7.2-11.7) fL Neut % (Auto) (50.0-75.0) % Lymph % (Auto) (20.0-40.0) % Bowman % (Auto) (0.0-10.0) % Eos % (Auto) (0.0-4.0) % Baso % (Auto) (0.0-2.0) % Neut # (Auto) (1.8-7.0) K/uL Lymph # (Auto) (1.0-4.3) K/uL Bowman # (Auto) (0.0-0.8) K/uL Eos # (Auto) (0.0-0.7) K/uL Baso # (Auto) (0.0-0.2) K/uL Neutrophils % (Manual) (50-75) % Lymphocytes % (Manual) (20-40) % Monocytes % (Manual) (0-10) % Platelet Estimate (NORMAL) Polychromasia Hypochromasia (manual) Anisocytosis (manual) PT 19.4 H (9.7-12.2) SECONDS INR 1.8 APTT 35 H (21-34) SECONDS pO2 (30-55) mm/Hg VBG pH (7.32-7.43) VBG pCO2 (40-60) mmHg VBG HCO3 mmol/L VBG Total CO2 (22-28) mmol/L VBG O2 Sat (Calc) (40-65) % VBG Base Excess (0.0-2.0) mmol/L VBG Potassium (3.6-5.2) mmol/L Glucose (65-105) mg/dl Lactate (0.7-2.1) mmol/L FiO2 % Sodium 142 (132-148) mmol/L Potassium 4.2 (3.6-5.2) mmol/L Chloride 110 H (98-107) mmol/L Carbon Dioxide 20 L (22-30) mmol/L Anion Gap 17 (10-20) BUN 64 H (7-17) mg/dL Creatinine 0.9 (0.7-1.2) mg/dL Est GFR ( Amer) > 60 Est GFR (Non-Af Amer) > 60 Random Glucose 230 H (65-105) mg/dL Lactic Acid (0.7-2.1) mmol/L Calcium 8.4 L (8.6-10.4) mg/dl Total Bilirubin 0.5 (0.2-1.3) mg/dL AST 21 (14-36) U/L ALT 24 (9-52) U/L Alkaline Phosphatase 36 L (38-126) U/L Troponin I < 0.0120 (0.00-0.120) ng/mL NT-Pro-B Natriuret Pep 786 (0-900) pg/mL Total Protein 5.6 L (6.3-8.3) g/dL Albumin 3.4 L D (3.5-5.0) g/dL Globulin 2.2 (2.2-3.9) gm/dL Albumin/Globulin Ratio 1.6 (1.0-2.1) Venous Blood Potassium (3.6-5.2) mmol/L Urine Color Yellow (YELLOW) Urine Clarity Clear (Clear) Urine pH 5.0 (5.0-8.0) Ur Specific Seco 1.017 (1.003-1.030) Urine Protein Negative (NEGATIVE) mg/dL Urine Glucose (UA) 1+ (Normal) mg/dL Urine Ketones Negative (NEGATIVE) mg/dL Urine Blood Negative (NEGATIVE) Urine Nitrate Negative (NEGATIVE) Urine Bilirubin Negative (NEGATIVE) Urine Urobilinogen Normal (0.2-1.0) mg/dL Ur Leukocyte Esterase Neg (Negative) Jt/uL Urine WBC (Auto) < 1 (0-5) /hpf Urine RBC (Auto) < 1 (0-3) /hpf Ur Squamous Epith Cells < 1 (0-5) /hpf Urine Bacteria Rare (<OCC) 07/27/ Range/Units 14:40 WBC 13.1 H (4.8-10.8) K/uL RBC 2.87 L (3.80-5.20) Mil/uL Hgb 8.5 L D (11.0-16.0) g/dL Hct 24.2 L (34.0-47.0) % MCV 84.2 (81.0-99.0) fL MCH 29.6 (27.0-31.0) pg MCHC 35.2 (33.0-37.0) g/dL RDW 16.2 H (11.5-14.5) % Plt Count 403 H D (130-400) K/uL MPV 8.3 (7.2-11.7) fL Neut % (Auto) 86.8 H (50.0-75.0) % Lymph % (Auto) 9.4 L (20.0-40.0) % Bowman % (Auto) 2.8 (0.0-10.0) % Eos % (Auto) 0.0 (0.0-4.0) % Baso % (Auto) 1.0 (0.0-2.0) % Neut # (Auto) 11.4 H (1.8-7.0) K/uL Lymph # (Auto) 1.2 (1.0-4.3) K/uL Bowman # (Auto) 0.4 (0.0-0.8) K/uL Eos # (Auto) 0.0 (0.0-0.7) K/uL Baso # (Auto) 0.1 (0.0-0.2) K/uL Neutrophils % (Manual) 91 H (50-75) % Lymphocytes % (Manual) 8 L (20-40) % Monocytes % (Manual) 1 (0-10) % Platelet Estimate Slightly increased H (NORMAL) Polychromasia Slight Hypochromasia (manual) Slight Anisocytosis (manual) Slight PT (9.7-12.2) SECONDS INR APTT (21-34) SECONDS pO2 (30-55) mm/Hg VBG pH (7.32-7.43) VBG pCO2 (40-60) mmHg VBG HCO3 mmol/L VBG Total CO2 (22-28) mmol/L VBG O2 Sat (Calc) (40-65) % VBG Base Excess (0.0-2.0) mmol/L VBG Potassium (3.6-5.2) mmol/L Glucose (65-105) mg/dl Lactate (0.7-2.1) mmol/L FiO2 % Sodium (132-148) mmol/L Potassium (3.6-5.2) mmol/L Chloride (98-107) mmol/L Carbon Dioxide (22-30) mmol/L Anion Gap (10-20) BUN (7-17) mg/dL Creatinine (0.7-1.2) mg/dL Est GFR ( Amer) Est GFR (Non-Af Amer) Random Glucose (65-105) mg/dL Lactic Acid (0.7-2.1) mmol/L Calcium (8.6-10.4) mg/dl Total Bilirubin (0.2-1.3) mg/dL AST (14-36) U/L ALT (9-52) U/L Alkaline Phosphatase (38-126) U/L Troponin I (0.00-0.120) ng/mL NT-Pro-B Natriuret Pep (0-900) pg/mL Total Protein (6.3-8.3) g/dL Albumin (3.5-5.0) g/dL Globulin (2.2-3.9) gm/dL Albumin/Globulin Ratio (1.0-2.1) Venous Blood Potassium (3.6-5.2) mmol/L Urine Color (YELLOW) Urine Clarity (Clear) Urine pH (5.0-8.0) Ur Specific Seco (1.003-1.030) Urine Protein (NEGATIVE) mg/dL Urine Glucose (UA) (Normal) mg/dL Urine Ketones (NEGATIVE) mg/dL Urine Blood (NEGATIVE) Urine Nitrate (NEGATIVE) Urine Bilirubin (NEGATIVE) Urine Urobilinogen (0.2-1.0) mg/dL Ur Leukocyte Esterase (Negative) Jt/uL Urine WBC (Auto) (0-5) /hpf Urine RBC (Auto) (0-3) /hpf Ur Squamous Epith Cells (0-5) /hpf Urine Bacteria (<OCC) Laboratory Results - last 24 hr 07/27/18 07/27/18 07/27/18 14:40 14:40 14:40 WBC 13.1 H RBC 2.87 L Hgb 8.5 L D Hct 24.2 L MCV 84.2 MCH 29.6 MCHC 35.2 RDW 16.2 H Plt Count 403 H D MPV 8.3 Neut % (Auto) 86.8 H Lymph % (Auto) 9.4 L Bowman % (Auto) 2.8 Eos % (Auto) 0.0 Baso % (Auto) 1.0 Neut # (Auto) 11.4 H Lymph # (Auto) 1.2 Bowman # (Auto) 0.4 Eos # (Auto) 0.0 Baso # (Auto) 0.1 Neutrophils % (Manual) 91 H Lymphocytes % (Manual) 8 L Monocytes % (Manual) 1 Platelet Estimate Slightly increased H Polychromasia Slight Hypochromasia (manual) Slight Anisocytosis (manual) Slight PT 19.4 H INR 1.8 APTT 35 H pO2 VBG pH VBG pCO2 VBG HCO3 VBG Total CO2 VBG O2 Sat (Calc) VBG Base Excess VBG Potassium Glucose Lactate FiO2 Sodium 142 Potassium 4.2 Chloride 110 H Carbon Dioxide 20 L Anion Gap 17 BUN 64 H Creatinine 0.9 Est GFR ( Amer) > 60 Est GFR (Non-Af Amer) > 60 Random Glucose 230 H Lactic Acid Calcium 8.4 L Total Bilirubin 0.5 AST 21 ALT 24 Alkaline Phosphatase 36 L Troponin I < 0.0120 NT-Pro-B Natriuret Pep 786 Total Protein 5.6 L Albumin 3.4 L D Globulin 2.2 Albumin/Globulin Ratio 1.6 Venous Blood Potassium Urine Color Urine Clarity Urine pH Ur Specific Seco Urine Protein Urine Glucose (UA) Urine Ketones Urine Blood Urine Nitrate Urine Bilirubin Urine Urobilinogen Ur Leukocyte Esterase Urine WBC (Auto) Urine RBC (Auto) Ur Squamous Epith Cells Urine Bacteria 07/27/18 07/27/18 07/27/18 15:51 16:10 21:17 WBC RBC Hgb Hct MCV MCH MCHC RDW Plt Count MPV Neut % (Auto) Lymph % (Auto) Bowman % (Auto) Eos % (Auto) Baso % (Auto) Neut # (Auto) Lymph # (Auto) Bowman # (Auto) Eos # (Auto) Baso # (Auto) Neutrophils % (Manual) Lymphocytes % (Manual) Monocytes % (Manual) Platelet Estimate Polychromasia Hypochromasia (manual) Anisocytosis (manual) PT INR APTT pO2 20 L VBG pH 7.41 VBG pCO2 39 L VBG HCO3 23.2 VBG Total CO2 25.9 VBG O2 Sat (Calc) 29.3 L VBG Base Excess 0.1 VBG Potassium 4.1 Glucose 203 H Lactate 2.5 H FiO2 21.0 Sodium 143.0 Potassium Chloride 112.0 H Carbon Dioxide Anion Gap BUN Creatinine Est GFR ( Amer) Est GFR (Non-Af Amer) Random Glucose Lactic Acid 3.1 H Calcium Total Bilirubin AST ALT Alkaline Phosphatase Troponin I NT-Pro-B Natriuret Pep Total Protein Albumin Globulin Albumin/Globulin Ratio Venous Blood Potassium 4.1 Urine Color Yellow Urine Clarity Clear Urine pH 5.0 Ur Specific Seco 1.017 Urine Protein Negative Urine Glucose (UA) 1+ Urine Ketones Negative Urine Blood Negative Urine Nitrate Negative Urine Bilirubin Negative Urine Urobilinogen Normal Ur Leukocyte Esterase Neg Urine WBC (Auto) < 1 Urine RBC (Auto) < 1 Ur Squamous Epith Cells < 1 Urine Bacteria Rare 07/28/18 00:08 WBC 14.5 H RBC 2.35 L Hgb 6.8 L Hct 20.2 L MCV 85.9 MCH 28.7 MCHC 33.5 RDW 16.4 H Plt Count 337 MPV 8.5 Neut % (Auto) Lymph % (Auto) Bowman % (Auto) Eos % (Auto) Baso % (Auto) Neut # (Auto) Lymph # (Auto) Bowman # (Auto) Eos # (Auto) Baso # (Auto) Neutrophils % (Manual) Lymphocytes % (Manual) Monocytes % (Manual) Platelet Estimate Polychromasia Hypochromasia (manual) Anisocytosis (manual) PT INR APTT pO2 VBG pH VBG pCO2 VBG HCO3 VBG Total CO2 VBG O2 Sat (Calc) VBG Base Excess VBG Potassium Glucose Lactate FiO2 Sodium Potassium Chloride Carbon Dioxide Anion Gap BUN Creatinine Est GFR ( Amer) Est GFR (Non-Af Amer) Random Glucose Lactic Acid Calcium Total Bilirubin AST ALT Alkaline Phosphatase Troponin I NT-Pro-B Natriuret Pep Total Protein Albumin Globulin Albumin/Globulin Ratio Venous Blood Potassium Urine Color Urine Clarity Urine pH Ur Specific Seco Urine Protein Urine Glucose (UA) Urine Ketones Urine Blood Urine Nitrate Urine Bilirubin Urine Urobilinogen Ur Leukocyte Esterase Urine WBC (Auto) Urine RBC (Auto) Ur Squamous Epith Cells Urine Bacteria EKG/Cardiology Studies: Cardiology / EKG Studies 07/27/18 14:09 ELECTROCARDIOGRAM Stat Comment: Mode Of Transportation: BED Reason For Exam: chest pain 07/27/18 14:23 ELECTROCARDIOGRAM Stat Comment: Mode Of Transportation: BED Reason For Exam: chest pain Critical Care Progress Note - Extremities/Vascular Does the Patient have a Central Venous Catheter?: No Does the Patient need a Central Venous Catheter?: No Does the Patient have a Desir Catheter?: No Does the Patient need a Desir Catheter?: No - Nutrition Nutrition: Nutrition Category Date Time Status NPO Diet [DIET] Diets 07/28/18 Breakfast Active Assessment/Plan (1) Acute upper GI hemorrhage Current Visit: Yes Status: Acute Comment: Acute upper GI bleed most likely PUD R/O malignancy. Anemia sec to acute Blood loss Admit to ICU sec to hemodynamic instability Two large bore peripheral catheters Suplemental O2 NPO IV Hydration, Volume resuscitation Hold antihypertensives PANTOPRAZOLE drip Transfuse 2U packed RBC GI evaluation called, recommend endoscopy in AM (2) Acute post-hemorrhagic anemia Current Visit: Yes Status: Acute (3) Rapid atrial fibrillation Current Visit: Yes Status: Acute (4) Syncope Current Visit: Yes Status: Acute
[2018-07-28 07:07] LABS: HEMOGLOBIN 8.9 g/dL (11.0-16.0); MEAN CORPUSCULAR HEMOGLOBIN 29.5 pg (27.0-31.0); MEAN CORPUSCULAR HGB CONC 34.2 g/dL (33.0-37.0); MEAN PLATELET VOLUME 8.7 fL (7.2-11.7); RBC 3.03 Mil/uL (3.80-5.20); RED CELL DISTRIBUTION WIDTH 15.3 % (11.5-14.5); WHITE BLOOD COUNT 9.2 K/uL (4.8-10.8)
[2018-07-28 07:14] LABS: INR 1.2; PROTHROMBIN TIME 13.5 SECONDS (9.7-12.2)
[2018-07-28 07:26] LABS: ALB/GLOB RATIO 1.5 (1.0-2.1); ALBUMIN 3.2 g/dL (3.5-5.0); ALT/SGPT 26 U/L (9-52); AST/SGOT 17 U/L (14-36); BLOOD UREA NITROGEN 47 mg/dL (7-17); CALCIUM 8.5 mg/dl (8.6-10.4); GFR NON-AFRICAN AMERICAN > 60
[2018-07-28] MEDS ORDERED: Etomidate 20 mg/10ml Inj IV ONE (08:18)
[2018-07-28] MEDS ORDERED: Midazolam 2 MG/2 ML VIAL ONE (08:18)
[2018-07-28] MEDS ORDERED: Pantoprazole 80 MG in Sodium Chloride 0.9% 100 ML IVPB SCH (08:30)
[2018-07-28] MEDS: Bisoprolol-HCTZ 5-6.25 mg Tab PO SCH (10:56)
[2018-07-28] MEDS: Saccharomyces Boulardi 250 mg Cap PO SCH ×3 (10:57→17:54)
[2018-07-28 12:08] LABS: WHITE BLOOD COUNT 9.6 K/uL (4.8-10.8)
[2018-07-28 12:15] LABS: HEMOGLOBIN 8.4 g/dL (11.0-16.0); MEAN CELL VOLUME 85.9 fL (81.0-99.0); MEAN CORPUSCULAR HEMOGLOBIN 30.4 pg (27.0-31.0); MEAN CORPUSCULAR HGB CONC 35.4 g/dL (33.0-37.0); MEAN PLATELET VOLUME 8.3 fL (7.2-11.7); RBC 2.76 Mil/uL (3.80-5.20); RED CELL DISTRIBUTION WIDTH 15.2 % (11.5-14.5)
[2018-07-28] MEDS: Sodium Chloride 0.9% 1,000 ML IV SCH (14:59)
--- NOTE | 2018-07-28 23:58 | CARD ---
APPROVED REPORT Date of service: 07/27/2018 EKG Measurement Heart [id number] <Conclusion> Atrial fibrillation with rapid ventricular response ST & T wave abnormality, consider inferolateral ischemia Abnormal ECG
--- NOTE | 2018-07-29 01:47 | CON ---
Copied To: Silas Mar MD Attending MD: Silas Mar MD DATE: 07/28/2018 REASON FOR CONSULTATION: Rapid atrial fibrillation. HISTORY OF PRESENT ILLNESS: The patient is a 63-year-old [place] female who was diagnosed with atrial fibrillation few months ago and was seen by core inspector in [place] and was placed on Xarelto. The patient was brought to the emergency department because of sudden onset of dizziness and a fall at her care home injuring the left knee. The patient was described by the EMS as hypotensive with blue lips . The patient denies any chest pain and is unaware of any history of heart attack. The patient denies having any invasive cardiac workup by her core inspector in [place] and is unaware of any history of a heart attack in the past. The patient has a history of depression, bipolar disorder, hypertension. On telemetry, the patient was noted to have a coffee-ground vomiting, and GI consultation was requested. The patient underwent upper endoscopy today, and the findings were consistent with one superficial ulcer. No bleeding or stigmata of recent bleeding. The lesion was 3 mm in largest diameter with successful injection of epinephrine. Biopsies were taken with cold forceps for histology. There was also small hiatus hernia and diffuse mild inflammation characterized by erythema that was found in the stomach. A 5 mm scope was found in the gastric body. No endoscopic evidence of bleeding or fluid collection in the stomach. Duodenum examination was normal. The patient at this time denied any chest pain. MEDICATIONS: Aldactone 25 mg once a day; Cardizem 60 mg every 8 hours, currently on hold; Desyrel 50 mg at bedtime; IV Cardizem infusion 5 mg per hour; Haldol 5 mg p.o. daily; Lopressor 50 mg twice a day; Ziac 5/6.25 mg orally daily; Seroquel 200 mg at bedtime; normal saline at 10 mL an hour. REVIEW OF SYSTEMS: No fever or chills. No retrosternal chest pain and no reported . PHYSICAL EXAMINATION: GENERAL: The patient is an elderly female who does not appear to be in acute distress. VITAL SIGNS: Blood pressure 115/67, heart rate 103, respirations 24, temperature 98.7. HEENT: Pale conjunctivae. CHEST: Clear. HEART: S1 and S2 regular. ABDOMEN: Soft. EXTREMITIES: No edema. LABORATORY DATA: Admitting hemoglobin and hematocrit were 8.5 and 24.2 followed by 6.8 and 20.2 respectively yesterday. Today's hemoglobin and hematocrit are 8.4 and 23.7. SMA-7: Sodium 145, potassium 4.5, chloride 114, CO2 of 19, glucose 137, BUN 47, creatinine 0.8, INR today is 1.2, INR yesterday was 1.8. EKG revealed atrial fibrillation at the rate of 136. Consider anterolateral ischemic ST segment changes. ASSESSMENT: 1. Rapid atrial fibrillation. 2. Esophageal ulcer. 3. Anemia. 4. Recent upper gastrointestinal bleeding. 5. Depression and bipolar disorder. RECOMMENDATIONS: Continue Aldactone 25 mg once a day, IV Cardizem at 5 mg per hour, Lopressor 50 mg twice a day, bisoprolol/ hydrochlorothiazide at one tablet daily, okay on an echocardiogram and TSH level. Hold anticoagulation until the patient is cleared from the gastrointestinal point of view. Silas Mar MD
[2018-07-29 06:37] LABS: BASO % 0.6 % (0.0-2.0); EOS # 0.1 K/uL (0.0-0.7); EOS % 1.5 % (0.0-4.0); HEMOGLOBIN 7.8 g/dL (11.0-16.0); LYMPH # 2.1 K/uL (1.0-4.3); LYMPH % 27.4 % (20.0-40.0); MEAN CELL VOLUME 85.6 fL (81.0-99.0); MEAN CORPUSCULAR HEMOGLOBIN 29.6 pg (27.0-31.0); MEAN CORPUSCULAR HGB CONC 34.6 g/dL (33.0-37.0); MEAN PLATELET VOLUME 8.2 fL (7.2-11.7); MONO # 0.5 K/uL (0.0-0.8); MONO % 6.4 % (0.0-10.0); NEUT % 64.1 % (50.0-75.0); NRBC % 0.2 % (0.0-2.0); RBC 2.62 Mil/uL (3.80-5.20); RED CELL DISTRIBUTION WIDTH 15.5 % (11.5-14.5); WHITE BLOOD COUNT 7.7 K/uL (4.8-10.8)
[2018-07-29 06:47] LABS: ALB/GLOB RATIO 1.5 (1.0-2.1); ALBUMIN 3.1 g/dL (3.5-5.0); ALT/SGPT 25 U/L (9-52); AST/SGOT 16 U/L (14-36); BLOOD UREA NITROGEN 18 mg/dL (7-17); CALCIUM 8.3 mg/dl (8.6-10.4); GFR NON-AFRICAN AMERICAN > 60
--- NOTE | 2018-07-29 06:49 | CP.PCM.PN ---
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 Therefore, discharge cancelled with plans for surgery and oncology evaluation. Primary team notified. Pt to be updated at beside. Original Note: <Davis Guevara - Last Filed: 07/29/18 11:09> Subjective - Date & Time of Evaluation Date of Evaluation: 07/29/18 Time of Evaluation: 06:55 - Subjective Subjective: PGY-4 GI Fellow Prog Note Pt lying in bed when seen this AM. She denied any bleeding and states that she feels like she is at her baseline health. 5 point ROS negative other than stated above Objective - Vital Signs/Intake and Output Vital Signs (last 24 hours): Temp Pulse Resp BP Pulse Ox 98.6 F 92 H 20 96/53 L 97 07/29/18 04:00 07/29/18 05:57 07/29/18 05:57 07/29/18 05:57 07/29/18 05:57 Intake and Output: 07/28/18 07/29/18 18:59 06:59 Intake Total 1690 100 Output Total 1450 1600 Balance 240 -1500 - Medications Medications: Current Medications Bisoprolol Fumarate/HCTZ (Ziac 5-6.25 Mg) 1 tab PO DAILY [facility] Last Admin: 07/28/18 10:56 Dose: 1 tab Diltiazem HCl (Cardizem) 60 mg PO Q8H [facility] Last Admin: 07/29/18 04:35 Dose: Not Given Haloperidol (Haldol) 5 mg PO DAILY [facility] Last Admin: 07/28/18 10:56 Dose: 5 mg Metoprolol Tartrate (Lopressor) 50 mg PO Q12H [facility] Last Admin: 07/27/18 23:43 Dose: 50 mg Pantoprazole Sodium (Protonix Inj) 40 mg IVP Q12H [facility] Last Admin: 07/28/18 21:13 Dose: 40 mg Quetiapine Fumarate (Seroquel) 200 mg PO HS [facility] Last Admin: 07/28/18 21:13 Dose: 200 mg Saccharomyces Boulardii (Florastor) 250 mg PO TID [facility] Last Admin: 07/28/18 17:54 Dose: 250 mg Spironolactone (Aldactone) 25 mg PO DAILY [facility] Last Admin: 07/28/18 10:57 Dose: 25 mg Temazepam (Restoril) 15 mg PO HS [facility] Last Admin: 07/28/18 21:13 Dose: 15 mg Trazodone HCl (Desyrel) 50 mg PO HS [facility] Last Admin: 07/28/18 22:23 Dose: 50 mg - Labs Labs: 07/29/18 06:26 07/29/18 06:26 PT 13.5 SECONDS (9.7-12.2) H D 07/28/18 06:54 INR 1.2 D 07/28/18 06:54 APTT 35 SECONDS (21-34) H 07/27/18 14:40 - Constitutional Appears: Well, Non-toxic - Head Exam Head Exam: ATRAUMATIC, NORMAL INSPECTION - Eye Exam Eye Exam: EOMI. absent: Conjunctival injection, Scleral icterus - ENT Exam ENT Exam: Mucous Membranes Moist. absent: Mucous Membranes Dry, Normal External Ear Exam - Respiratory Exam Respiratory Exam: NORMAL BREATHING PATTERN. absent: Accessory Muscle Use - GI/Abdominal Exam GI & Abdominal Exam: Soft, Normal Bowel Sounds. absent: Bruit, Distended, Firm , Guarding, Rigid, Tenderness, Organomegaly, Rebound Assessment and Plan - Assessment and Plan (Free Text) Assessment: 63F with hx of Afib on OAC, aspirin and recent NSAID use for arthritis presenting with syncope, anemia and melena on rectal exam due to upper GI bleed. #Acute blood loss anemia due to upper GI bleed: FC IIb ulcer near GE junction seen on EGD 07/28/18 s/p epi inj and gold probe treatment. #Afib on OAC #Arthritis taking NSAIDs #HTN #Psychiatric disorder Plan: - S/p pRBC x 2 units with appropriate response - PPI bolus and drip -> PO BID daily x 3 months until f/u with GI - Low Na diet - Avoid ASA, NSAIDs Pt seen and examined with Dr. Trujillo. Please see attestation for further recs/ changes. Thank you for the consult. Will sign off. <David Trujillo - Last Filed: 07/29/18 18:53> Objective - Vital Signs/Intake and Output Vital Signs (last 24 hours): Temp Pulse Resp BP Pulse Ox 98.6 F 92 H 23 101/59 L 99 07/29/18 16:00 07/29/18 18:00 07/29/18 18:00 07/29/18 16:10 07/29/18 16:10 Intake and Output: 07/29/18 07/29/18 06:59 18:59 Intake Total 100 1580 Output Total 1600 1 Balance -1500 1579 - Medications Medications: Current Medications Bisoprolol Fumarate/HCTZ (Ziac 5-6.25 Mg) 1 tab PO DAILY [facility] Last Admin: 07/29/18 09:55 Dose: 1 tab Diltiazem HCl (Cardizem) 60 mg PO Q8H [facility] Last Admin: 07/29/18 11:44 Dose: 60 mg Haloperidol (Haldol) 5 mg PO DAILY [facility] Last Admin: 07/29/18 09:56 Dose: 5 mg Metoprolol Tartrate (Lopressor) 50 mg PO Q12H [facility] Last Admin: 07/27/18 23:43 Dose: 50 mg Pantoprazole Sodium (Protonix Ec Tab) 40 mg PO BID [facility] Last Admin: 07/29/18 17:22 Dose: 40 mg Quetiapine Fumarate (Seroquel) 200 mg PO [facility] Last Admin: 07/28/18 21:13 Dose: 200 mg Saccharomyces Boulardii (Florastor) 250 mg PO TID [facility] Last Admin: 07/29/18 17:22 Dose: 250 mg Spironolactone (Aldactone) 25 mg PO DAILY [facility] Last Admin: 07/29/18 09:55 Dose: 25 mg Sucralfate (Carafate Oral Susp) 1 gm PO QID [facility] Last Admin: 07/29/18 17:22 Dose: 1 gm Temazepam (Restoril) 15 mg PO [facility] Last Admin: 07/28/18 21:13 Dose: 15 mg Trazodone HCl (Desyrel) 50 mg PO [facility] Last Admin: 07/28/18 22:23 Dose: 50 mg - Labs Labs: 07/29/18 17:42 07/29/18 06:26 PT 13.5 SECONDS (9.7-12.2) H D 07/28/18 06:54 INR 1.2 D 07/28/18 06:54 APTT 35 SECONDS (21-34) H 07/27/18 14:40 Attending/Attestation - Attestation I have personally seen and examined this patient.: Yes I have fully participated in the care of the patient.: Yes I have reviewed all pertinent clinical information, including history, physical exam and plan: Yes Notes (Text): 07/29/18 18:51 This is a 63 year old F with hx of Afib on OAC, aspirin and recent NSAID use for arthritis presenting with syncope, anemia and melena on rectal exam due to upper GI bleed s/p EGD yesterday showing forest class IIb ulcer near GE junction s/p epi injection and gold probe treatment. Biopsy compatible with invasive adenoCA. PPI bid, surgery and oncology consults and further work up as per them. Thank you for letting us participate in the care of your patient
--- NOTE | 2018-07-29 09:17 | CP.PCM.PN ---
<Deborah Bryant - Last Filed: 07/29/18 15:25> Subjective - Date & Time of Evaluation Date of Evaluation: 07/29/18 Time of Evaluation: 09:10 - Subjective Subjective: PGY [address] Quiroz covering for Dr. Mckeon Seen and examined this am. Pt is resting in bed comfortably. Pt is being transfused PRBC this am. Denies having any recurrent episodes of blood stools or melena. Denies having any abd pain, Cp, SOB, N/v/D/C, F/C. Objective - Vital Signs/Intake and Output Vital Signs (last 24 hours): Temp Pulse Resp BP Pulse Ox 98.3 F 91 H 24 106/62 98 07/29/18 08:00 07/29/18 08:04 07/29/18 08:04 07/29/18 08:04 07/29/18 08:04 Intake and Output: 07/29/18 07/29/18 06:59 18:59 Intake Total 100 570 Output Total 1600 Balance -1500 570 - Medications Medications: Current Medications Bisoprolol Fumarate/HCTZ (Ziac 5-6.25 Mg) 1 tab PO DAILY [facility] Last Admin: 07/28/18 10:56 Dose: 1 tab Diltiazem HCl (Cardizem) 60 mg PO Q8H [facility] Last Admin: 07/29/18 04:35 Dose: Not Given Haloperidol (Haldol) 5 mg PO DAILY [facility] Last Admin: 07/28/18 10:56 Dose: 5 mg Metoprolol Tartrate (Lopressor) 50 mg PO Q12H [facility] Last Admin: 07/27/18 23:43 Dose: 50 mg Pantoprazole Sodium (Protonix Inj) 40 mg IVP Q12H [facility] Last Admin: 07/28/18 21:13 Dose: 40 mg Quetiapine Fumarate (Seroquel) 200 mg PO HS [facility] Last Admin: 07/28/18 21:13 Dose: 200 mg Saccharomyces Boulardii (Florastor) 250 mg PO TID [facility] Last Admin: 07/28/18 17:54 Dose: 250 mg Spironolactone (Aldactone) 25 mg PO DAILY [facility] Last Admin: 07/28/18 10:57 Dose: 25 mg Temazepam (Restoril) 15 mg PO [facility] Last Admin: 08/29/18 21:13 Dose: 15 mg Trazodone HCl (Desyrel) 50 mg PO HS [facility] Last Admin: 07/28/18 22:23 Dose: 50 mg - Labs Labs: 07/29/18 06:26 07/29/18 06:26 PT 13.5 SECONDS (9.7-12.2) H D 07/28/18 06:54 INR 1.2 D 07/28/18 06:54 APTT 35 SECONDS (21-34) H 07/27/18 14:40 - Constitutional Appears: Non-toxic, No Acute Distress - Head Exam Head Exam: ATRAUMATIC, NORMOCEPHALIC - ENT Exam ENT Exam: Mucous Membranes Moist - Respiratory Exam Respiratory Exam: Clear to Ausculation Bilateral. absent: Accessory Muscle Use , Rales, Rhonchi, Wheezes, Respiratory Distress - Cardiovascular Exam Cardiovascular Exam: REGULAR RHYTHM, +S1, +S2. absent: Gallop, Rubs, Murmur - GI/Abdominal Exam GI & Abdominal Exam: Soft, Normal Bowel Sounds. absent: Distended, Firm, Guarding, Rigid, Tenderness, Organomegaly - Neurological Exam Neurological Exam: Alert, Awake, Oriented x3 - Psychiatric Exam Psychiatric exam: Normal Affect, Normal Mood - Skin Skin Exam: Dry, Intact, Normal Color, Warm Assessment and Plan - Assessment and Plan (Free Text) Assessment: 63 year old female with past medical history of A fib on xeralto, arthiritis with regular NSAID use, CHF, HTN and depression was admitted to hospital for GI bleed. Patient is s/p 2 units of PRBC transfusion. GI bleed - S/P 3 units PRBC - S/P Upper endoscopy. Results are as follows: non-bleeding esophageal ulcer, injected and biopsied. Hiatal hernia. Chronic gastritis - Biopsy results show invasive adenocarcinoma, mod to poor differentiated and invasion to lamina propria at GE junction - Pt was on PPI drip but has been switched to protonix 40 IVP BID - GI, Dr. Gaiens consulted. Per GI, pt will require prilosec 40 mg po bid indefinitely due to being on oral AC - CBC q6 GE invasive mucinuous adenocarcinoma - Heme/onc, Dr. Fernandez is consulted - Surgery, Dr. Cannon is consulted A fib with RVR - Cardizem 60 mg po q8 - Cardio, Dr. Mar is consulted. - 2D echo pending -Will discuss restarting AC with heparin with cardio. HTN - Continue home medication Ziac 5-6.25 qd and spironolactone 25 mg po qd - Will monitor closely CHF - Will check echo Depression - Continue home medications Haldol 5 mg po qd and desyrel Insomnia - Continue Restoril and Seroquel Elevated TSH - TSH 7.35. Will repeat value and check T4 Prophylaxis - Protonix BID - SCDs Case will be discussed with attending, Dr. Quiroz <Ramila Quiroz V - Last Filed: 07/29/18 20:25> Objective - Vital Signs/Intake and Output Vital Signs (last 24 hours): Temp Pulse Resp BP Pulse Ox 98.6 F 102 H 21 105/61 99 07/29/18 16:00 07/29/18 19:00 07/29/18 19:00 07/29/18 18:22 07/29/18 16:10 Intake and Output: 07/29/18 07/30/18 18:59 06:59 Intake Total 1580 Output Total 1 Balance 1579 - Medications Medications: Current Medications Bisoprolol Fumarate/HCTZ (Ziac 5-6.25 Mg) 1 tab PO DAILY [facility] Last Admin: 07/29/18 09:55 Dose: 1 tab Diltiazem HCl (Cardizem) 60 mg PO Q8H [facility] Last Admin: 07/29/18 11:44 Dose: 60 mg Haloperidol (Haldol) 5 mg PO DAILY [facility] Last Admin: 07/29/18 09:56 Dose: 5 mg Metoprolol Tartrate (Lopressor) 50 mg PO Q12H [facility] Last Admin: 07/27/18 23:43 Dose: 50 mg Pantoprazole Sodium (Protonix Ec Tab) 40 mg PO BID [facility] Last Admin: 07/29/18 17:22 Dose: 40 mg Quetiapine Fumarate (Seroquel) 200 mg PO HS [facility] Last Admin: 07/28/18 21:13 Dose: 200 mg Saccharomyces Boulardii (Florastor) 250 mg PO TID [facility] Last Admin: 07/29/18 17:22 Dose: 250 mg Spironolactone (Aldactone) 25 mg PO DAILY [facility] Last Admin: 07/29/18 09:55 Dose: 25 mg Sucralfate (Carafate Oral Susp) 1 gm PO QID [facility] Last Admin: 07/29/18 17:22 Dose: 1 gm Temazepam (Restoril) 15 mg PO HS [facility] Last Admin: 07/28/18 21:13 Dose: 15 mg Trazodone HCl (Desyrel) 50 mg PO HS [facility] Last Admin: 07/28/18 22:23 Dose: 50 mg - Labs Labs: 07/29/18 17:42 07/29/18 06:26 PT 13.5 SECONDS (9.7-12.2) H D 07/28/18 06:54 INR 1.2 D 07/28/18 06:54 APTT 35 SECONDS (21-34) H 07/27/18 14:40 Attending/Attestation - Attestation I have personally seen and examined this patient.: Yes I have fully participated in the care of the patient.: Yes I have reviewed all pertinent clinical information, including history, physical exam and plan: Yes Notes (Text): patient seen, examined, and case discussed with emergency medical services coordinator. Hospitalist is covering Dr. Mckeon until August 03. patient seen and examined this morning. Patient transferred out from the ICU to telemetry. Patient had melanotic stool noted by RN late this afternoon. pathology revealed mucinous adenocarcinoma at GE junction; heme on and cardiothoracic surgery consulted. Lactic acid has normalized Hgb has improved to 9.4 post 3rd transfusion total echocardiogram pending. Case discussed with cardiology, unable to anticoagulate given melanotic stool and gi bleed/anemia. Assessment/Plan 1) GI bleed Non-Bleeding Ulcer Hiatal Hernia Chronic Gastritis Melanotic Stool Assessment/Plan * GI (Dr. Gaines) on case-->help appreciated * S/P Upper endoscopy (07/27/18). Results are as follows: non-bleeding esophageal ulcer, injected and biopsied. Hiatal hernia. Chronic gastritis * Biopsy results show invasive adenocarcinoma, mod to poor differentiated and invasion to lamina propria at GE junction * Patient transfused 1 unit of PRBC today-->Improved to 9.4 * Protonix 40mg PO BID 2) Invasive mucinous adenocarcinoma Anemia of Acute Blood Loss Assessment/Plan * GI (Dr. Gaines) on case-->help appreciated * Heme/onc, Dr. Fernandez on case--F/u recommendations * Surgery, Dr. Ma on case-->f/u recommendations * S/P Upper endoscopy (07/27/18). * Pathology (GE junction): invasive adenocarcinoma. moderate to poorly differentiated/ invasive carcinoma at least invades the lamina propria. Alcian blue stain highlights mucin * pending CT Chest/Abd/Pelvis for staging for esophageal cancer 3) Atrial fibrillation with RVR Assessment/Plan * Cardiology (Dr. Chatman) on the case-->help appreciated * Contraindication indication to chemical anticoagulation secondary to GI bleed/ melanotic stool * Cardizem 60mg PO Q8H * Bisoprolol/hctz 5-6/25mg 1 tab PO daily * Pending echocardiogram 4) Hypertension Assessment/Plan * Bisoprolol/hctz 5-6/25mg 1 tab PO daily * Cardizem 60mg PO Q8H * Aldactone 25mg PO daily 5) History of CHF Assessment/Plan * unknown if systolic vs diastolic * Echo pending * Contraindication indication to chemical anticoagulation secondary to GI bleed/ melanotic stool * Bisoprolol/hctz 5-6/25mg 1 tab PO daily * f/u to check fluid overload given recent blood transfusions 6) Depression Assessment/Plan * Haldol 5mg PO daily * [id number] POqHS * Trazodone 50mg PO HS * Seroquel 200mg PO qHS 7) Abnormal TSH Assessment/Plan * TSH 7.35. * Repeat Free T4 and TSH 8) Prophylaxis * Chemical anticoagulation contraindication secondary to melanotic stools and gi bleed * Protonix 40mg PO BID
[2018-07-29] MEDS: Bisoprolol-HCTZ 5-6.25 mg Tab PO SCH (09:55)
[2018-07-29] MEDS: Saccharomyces Boulardi 250 mg Cap PO SCH ×3 (09:55→17:22)
[2018-07-29] MEDS: Pantoprazole 40 mg EC Tab PO SCH ×2 (09:56→17:22)
--- NOTE | 2018-07-29 10:00 | CP.CCUPN ---
<Mauro Jenkins - Last Filed: 07/29/18 13:24> CCU Subjective - Physician Review Subjective (Free Text): 07/29/18 09:57 Critical care progress note: Pt janine and examined at bedside. No acute events overnight. Patient states that she is feeling well. S/p EGD showing esophageal ulcer treated with epi, and chronic gastritis. Currently denies any abdominal pain, n/v. No chest pain or palpitations. No other complaints. CCU Objective - Vital Signs / Intake & Output Vital Signs (Last 4 hours): Vital Signs Temp Pulse Resp BP Pulse Ox 07/29/18 08:04 91 H 24 106/62 98 07/29/18 08:00 98.3 F 93 H 17 97 07/29/18 07:57 93 H 17 111/60 97 07/29/18 07:30 84 22 99 07/29/18 07:00 93 H 22 97 07/29/18 06:57 94 H 28 H 96 Intake and Output (Last 8hrs): Intake & Output 07/28/18 07/29/18 07/29/18 22:59 06:59 14:59 Intake Total 400 570 Output Total 700 1600 Balance -300 -1600 570 Weight 175 lb 4 oz Intake: Intake, IV Amount 300 20 Left Antecubital 300 10 Right Antecubital 10 Oral 100 550 Output: Urine 700 1600 Urine, Voided 700 1600 Other: # Voids Urine, Voided 1 0 # Bowel Movements 0 0 0 - Physical Exam Head: Positive for: Atraumatic, Normocephalic Pupils: Positive for: PERRL Extroacular Muscles: Positive for: EOMI Conjunctiva: Positive for: Normal Mouth: Positive for: Moist Mucous Membranes Neck: Positive for: Normal Range of Motion Respiratory/Chest: Positive for: Clear to Auscultation, Good Air Exchange. Negative for: Respiratory Distress, Accessory Muscle Use Cardiovascular: Positive for: Normal S1, S2, Tachycardic. Negative for: Murmurs Abdomen: Positive for: Normal Bowel Sounds. Negative for: Tenderness, Distention Upper Extremity: Negative for: Cyanosis, Edema Lower Extremity: Negative for: Edema, CALF TENDERNESS Skin: Positive for: Warm, Dry Psychiatric: Positive for: Alert, Oriented x 3 - Medications Active Medications: Active Medications Generic Name Dose Route Start Last Admin Trade Name Freq PRN Reason Stop Dose Admin Bisoprolol Fumarate/HCTZ 1 tab 07/28/18 10:00 07/29/18 09:55 Ziac 5-6.25 Mg PO 1 tab DAILY [facility] Administration Diltiazem HCl 60 mg 07/28/18 12:00 07/29/18 04:35 Cardizem PO Not Given Q8H [facility] Haloperidol 5 mg 07/28/18 10:00 07/29/18 09:56 Haldol PO 5 mg DAILY [facility] Administration Metoprolol Tartrate 50 mg 07/27/18 22:45 07/27/18 23:43 Lopressor PO 50 mg Q12H [facility] Administration Pantoprazole Sodium 40 mg 07/29/18 10:00 07/29/18 09:56 Protonix Ec Tab PO 40 mg BID [facility] Administration Quetiapine Fumarate 200 mg 07/27/18 22:00 07/28/18 21:13 Seroquel PO 200 mg HS [facility] Administration Saccharomyces Boulardii 250 mg 07/28/18 10:00 07/29/18 09:55 Florastor PO 250 mg TID [facility] Administration Spironolactone 25 mg 07/28/18 10:00 07/29/18 09:55 Aldactone PO 25 mg DAILY [facility] Administration Sucralfate 1 gm 07/29/18 10:00 Carafate Oral Susp PO QID [facility] Temazepam 15 mg 07/27/18 22:00 07/28/18 21:13 Restoril PO 15 mg HS [facility] Administration Trazodone HCl 50 mg 07/27/18 22:00 07/28/18 22:23 Desyrel PO 50 mg HS [facility] Administration - Patient Studies Lab Studies: Microbiology Studies 07/27/18 15:51 Urine Culture - Final Urine No Growth (<1,000 CFU/ML) 07/27/18 16:00 Blood Culture - Preliminary Blood NO GROWTH AFTER 24 HOURS 07/27/18 15:30 Blood Culture - Preliminary Blood NO GROWTH AFTER 24 HOURS Lab Studies 07/29/18 07/29/18 07/29/18 Range/Units 06:26 06:26 06:26 WBC 7.7 (4.8-10.8) K/uL RBC 2.62 L (3.80-5.20) Mil/uL Hgb 7.8 L (11.0-16.0) g/dL Hct 22.4 L (34.0-47.0) % MCV 85.6 (81.0-99.0) fL MCH 29.6 (27.0-31.0) pg MCHC 34.6 (33.0-37.0) g/dL RDW 15.5 H (11.5-14.5) % Plt Count 205 (130-400) K/uL MPV 8.2 (7.2-11.7) fL Neut % (Auto) 64.1 (50.0-75.0) % Lymph % (Auto) 27.4 (20.0-40.0) % [place] % (Auto) 6.4 (0.0-10.0) % Eos % (Auto) 1.5 (0.0-4.0) % Baso % (Auto) 0.6 (0.0-2.0) % Neut # (Auto) 5.0 (1.8-7.0) K/uL Lymph # (Auto) 2.1 (1.0-4.3) K/uL [place] # (Auto) 0.5 (0.0-0.8) K/uL Eos # (Auto) 0.1 (0.0-0.7) K/uL Baso # (Auto) 0.0 (0.0-0.2) K/uL Sodium 143 (132-148) mmol/L Potassium 3.8 (3.6-5.2) mmol/L Chloride 110 H (98-107) mmol/L Carbon Dioxide 22 (22-30) mmol/L Anion Gap 15 (10-20) BUN 18 H (7-17) mg/dL Creatinine 0.8 (0.7-1.2) mg/dL Est GFR ( Amer) > 60 Est GFR (Non-Af Amer) > 60 Random Glucose 102 (65-105) mg/dL Calcium 8.3 L (8.6-10.4) mg/dl Phosphorus 2.6 (2.5-4.5) mg/dL Magnesium 2.0 (1.6-2.3) mg/dL Total Bilirubin 0.5 (0.2-1.3) mg/dL AST 16 (14-36) U/L ALT 25 (9-52) U/L Alkaline Phosphatase 28 L (38-126) U/L Total Protein 5.0 L (6.3-8.3) g/dL Albumin 3.1 L (3.5-5.0) g/dL Globulin 2.0 L (2.2-3.9) gm/dL Albumin/Globulin Ratio 1.5 (1.0-2.1) TSH 3rd Generation 7.35 H (0.46-4.68) mIU/L 07/28/18 07/28/18 Range/Units 11:58 06:54 WBC 9.6 (4.8-10.8) K/uL RBC 2.76 L (3.80-5.20) Mil/uL Hgb 8.4 L (11.0-16.0) g/dL Hct 23.7 L (34.0-47.0) % MCV 85.9 (81.0-99.0) fL MCH 30.4 (27.0-31.0) pg MCHC 35.4 (33.0-37.0) g/dL RDW 15.2 H (11.5-14.5) % Plt Count 230 D 95 L D (130-400) K/uL MPV 8.3 (7.2-11.7) fL Neut % (Auto) (50.0-75.0) % Lymph % (Auto) (20.0-40.0) % [place] % (Auto) (0.0-10.0) % Eos % (Auto) (0.0-4.0) % Baso % (Auto) (0.0-2.0) % Neut # (Auto) (1.8-7.0) K/uL Lymph # (Auto) (1.0-4.3) K/uL [place] # (Auto) (0.0-0.8) K/uL Eos # (Auto) (0.0-0.7) K/uL Baso # (Auto) (0.0-0.2) K/uL Sodium (132-148) mmol/L Potassium (3.6-5.2) mmol/L Chloride (98-107) mmol/L Carbon Dioxide (22-30) mmol/L Anion Gap (10-20) BUN (7-17) mg/dL Creatinine (0.7-1.2) mg/dL Est GFR ( Amer) Est GFR (Non-Af Amer) Random Glucose (65-105) mg/dL Calcium (8.6-10.4) mg/dl Phosphorus (2.5-4.5) mg/dL Magnesium (1.6-2.3) mg/dL Total Bilirubin (0.2-1.3) mg/dL AST (14-36) U/L ALT (9-52) U/L Alkaline Phosphatase (38-126) U/L Total Protein (6.3-8.3) g/dL Albumin (3.5-5.0) g/dL Globulin (2.2-3.9) gm/dL Albumin/Globulin Ratio (1.0-2.1) TSH 3rd Generation (0.46-4.68) mIU/L Laboratory Results - last 24 hr 07/28/18 07/28/18 07/29/18 06:54 11:58 06:26 WBC 9.6 RBC 2.76 L Hgb 8.4 L Hct 23.7 L MCV 85.9 MCH 30.4 MCHC 35.4 RDW 15.2 H Plt Count 95 L D 230 D MPV 8.3 Neut % (Auto) Lymph % (Auto) [place] % (Auto) Eos % (Auto) Baso % (Auto) Neut # (Auto) Lymph # (Auto) [place] # (Auto) Eos # (Auto) Baso # (Auto) Sodium Potassium Chloride Carbon Dioxide Anion Gap BUN Creatinine Est GFR ( Amer) Est GFR (Non-Af Amer) Random Glucose Calcium Phosphorus Magnesium Total Bilirubin AST ALT Alkaline Phosphatase Total Protein Albumin Globulin Albumin/Globulin Ratio TSH 3rd Generation 7.35 H 07/29/18 07/29/18 06:26 06:26 WBC 7.7 RBC 2.62 L Hgb 7.8 L Hct 22.4 L MCV 85.6 MCH 29.6 MCHC 34.6 RDW 15.5 H Plt Count 205 MPV 8.2 Neut % (Auto) 64.1 Lymph % (Auto) 27.4 [place] % (Auto) 6.4 Eos % (Auto) 1.5 Baso % (Auto) 0.6 Neut # (Auto) 5.0 Lymph # (Auto) 2.1 [place] # (Auto) 0.5 Eos # (Auto) 0.1 Baso # (Auto) 0.0 Sodium 143 Potassium 3.8 Chloride 110 H Carbon Dioxide 22 Anion Gap 15 BUN 18 H Creatinine 0.8 Est GFR ( Amer) > 60 Est GFR (Non-Af Amer) > 60 Random Glucose 102 Calcium 8.3 L Phosphorus 2.6 Magnesium 2.0 Total Bilirubin 0.5 AST 16 ALT 25 Alkaline Phosphatase 28 L Total Protein 5.0 L Albumin 3.1 L Globulin 2.0 L Albumin/Globulin Ratio 1.5 TSH 3rd Generation Review of Systems - Review of Systems All systems: reviewed and no additional remarkable complaints except (HPI) Critical Care Progress Note - Nutrition Nutrition: Nutrition Category Date Time Status Liquid Diet [DIET] Diets 07/28/18 Lunch Active Assessment/Plan - Assessment and Plan (Free Text) Assessment: 63F with PMHx of Afib on xarelto, arthritis (takes motrin for her pain), bipolar and depression presents following a syncopal episode. patient was found to be anemic with hb of 6.8 s/p 2 units PRBC and EGD showing esophageal ulcer with no active bleeding. Patient was also on cardizem ggt on presentation however is currently rate controlled with cardizem PO. Neuro: - Stable - Alert and awake - Cont psychiatric medications Pulm: - nasal cannula as needed - maintain SPO2 >92% CV: - Cont with cardizem Po 60mg Q6H - F/u cardiology recs - regarding continuation of anticoagulation for afib - metoprolol currently on hold - Cont aldactone 25mg daily GI: - S/p EGD showing esophageal ulcer with no active bleeding injected with epi - Follow up GI recs - regarding continuation of anticoagulation for afib - Cont protonix 40mg PO BId and started carafate - Cont to monitor Renal: - Replete electrolytes as needed - Monitor I and O Endo: - maintain euglycemic Heme: - S/p 2 units transfusions yesterday - Will transfuse 1 unit today - monitor H/H ID: -afebrile and no signs of infection - Cont to monitor case and plan was reviewed and discussed in detail with Dr Morton. <Moraima Morton - Last Filed: 07/29/18 14:22> CCU Objective - Vital Signs / Intake & Output Vital Signs (Last 4 hours): Vital Signs Temp Pulse Resp BP Pulse Ox 07/29/18 13:45 73 27 H 94/58 L 07/29/18 13:30 74 23 07/29/18 13:16 76 22 07/29/18 13:00 82 25 H 07/29/18 12:44 97 H 24 123/90 07/29/18 12:30 90 20 07/29/18 12:12 88 22 117/65 07/29/18 12:00 97.5 F L 90 30 H 98 07/29/18 11:57 86 21 113/76 07/29/18 11:42 82 28 H 109/65 07/29/18 11:35 98.1 F 94 H 19 109/65 07/29/18 11:30 93 H 25 H 07/29/18 11:27 100 H 18 112/67 07/29/18 11:22 90 28 H 107/56 L 07/29/18 11:20 97.5 F L 82 22 107/56 L 07/29/18 11:05 97.9 F 87 19 117/77 07/29/18 11:00 90 19 99 07/29/18 10:47 101 H 21 117/77 99 07/29/18 10:30 96 H 19 97 Intake and Output (Last 8hrs): Intake & Output 07/28/18 07/29/18 07/29/18 22:59 06:59 14:59 Intake Total 400 570 Output Total 700 1600 Balance -300 -1600 570 Weight 175 lb 4 oz Intake: Intake, IV Amount 300 20 Left Antecubital 300 10 Right Antecubital 10 Oral 100 550 Blood Product 0 Red Blood Cells Cpd As1 0 Lr Unit [id number] Output: Urine 700 1600 Urine, Voided 700 1600 Other: # Voids Urine, Voided 1 0 # Bowel Movements 0 0 0 - Medications Active Medications: Active Medications Generic Name Dose Route Start Last Admin Trade Name Freq PRN Reason Stop Dose Admin Bisoprolol Fumarate/HCTZ 1 tab 07/28/18 10:00 07/29/18 09:55 Ziac 5-6.25 Mg PO 1 tab DAILY [facility] Administration Diltiazem HCl 60 mg 07/28/18 12:00 07/29/18 11:44 Cardizem PO 60 mg Q8H [facility] Administration Haloperidol 5 mg 07/28/18 10:00 07/29/18 09:56 Haldol PO 5 mg DAILY [facility] Administration Metoprolol Tartrate 50 mg 07/27/18 22:45 07/27/18 23:43 Lopressor PO 50 mg Q12H [facility] Administration Pantoprazole Sodium 40 mg 07/29/18 10:00 07/29/18 09:56 Protonix Ec Tab PO 40 mg BID [facility] Administration Quetiapine Fumarate 200 mg 07/27/18 22:00 07/28/18 21:13 Seroquel PO 200 mg HS [facility] Administration Saccharomyces Boulardii 250 mg 07/28/18 10:00 07/29/18 14:13 Florastor PO 250 mg TID [facility] Administration Spironolactone 25 mg 07/28/18 10:00 07/29/18 09:55 Aldactone PO 25 mg DAILY [facility] Administration Sucralfate 1 gm 07/29/18 10:00 07/29/18 14:12 Carafate Oral Susp PO 1 gm QID [facility] Administration Temazepam 15 mg 07/27/18 22:00 07/28/18 21:13 Restoril PO 15 mg HS [facility] Administration Trazodone HCl 50 mg 07/27/18 22:00 07/28/18 22:23 Desyrel PO 50 mg HS [facility] Administration - Patient Studies Lab Studies: Microbiology Studies 07/27/18 15:51 Urine Culture - Final Urine No Growth (<1,000 CFU/ML) 07/27/18 16:00 Blood Culture - Preliminary Blood NO GROWTH AFTER 24 HOURS 07/27/18 15:30 Blood Culture - Preliminary Blood NO GROWTH AFTER 24 HOURS Lab Studies 07/29/18 07/29/18 07/29/18 Range/Units 06:26 06:26 06:26 WBC 7.7 (4.8-10.8) K/uL RBC 2.62 L (3.80-5.20) Mil/uL Hgb 7.8 L (11.0-16.0) g/dL Hct 22.4 L (34.0-47.0) % MCV 85.6 (81.0-99.0) fL MCH 29.6 (27.0-31.0) pg MCHC 34.6 (33.0-37.0) g/dL RDW 15.5 H (11.5-14.5) % Plt Count 205 (130-400) K/uL MPV 8.2 (7.2-11.7) fL Neut % (Auto) 64.1 (50.0-75.0) % Lymph % (Auto) 27.4 (20.0-40.0) % [place] % (Auto) 6.4 (0.0-10.0) % Eos % (Auto) 1.5 (0.0-4.0) % Baso % (Auto) 0.6 (0.0-2.0) % Neut # (Auto) 5.0 (1.8-7.0) K/uL Lymph # (Auto) 2.1 (1.0-4.3) K/uL [place] # (Auto) 0.5 (0.0-0.8) K/uL Eos # (Auto) 0.1 (0.0-0.7) K/uL Baso # (Auto) 0.0 (0.0-0.2) K/uL Sodium 143 (132-148) mmol/L Potassium 3.8 (3.6-5.2) mmol/L Chloride 110 H (98-107) mmol/L Carbon Dioxide 22 (22-30) mmol/L Anion Gap 15 (10-20) BUN 18 H (7-17) mg/dL Creatinine 0.8 (0.7-1.2) mg/dL Est GFR ( Amer) > 60 Est GFR (Non-Af Amer) > 60 Random Glucose 102 (65-105) mg/dL Calcium 8.3 L (8.6-10.4) mg/dl Phosphorus 2.6 (2.5-4.5) mg/dL Magnesium 2.0 (1.6-2.3) mg/dL Total Bilirubin 0.5 (0.2-1.3) mg/dL AST 16 (14-36) U/L ALT 25 (9-52) U/L Alkaline Phosphatase 28 L (38-126) U/L Total Protein 5.0 L (6.3-8.3) g/dL Albumin 3.1 L (3.5-5.0) g/dL Globulin 2.0 L (2.2-3.9) gm/dL Albumin/Globulin Ratio 1.5 (1.0-2.1) TSH 3rd Generation 7.35 H (0.46-4.68) mIU/L Blood Type Antibody Screen 07/28/18 Range/Units 01:22 WBC (4.8-10.8) K/uL RBC (3.80-5.20) Mil/uL Hgb (11.0-16.0) g/dL Hct (34.0-47.0) % MCV (81.0-99.0) fL MCH (27.0-31.0) pg MCHC (33.0-37.0) g/dL RDW (11.5-14.5) % Plt Count (130-400) K/uL MPV (7.2-11.7) fL Neut % (Auto) (50.0-75.0) % Lymph % (Auto) (20.0-40.0) % [place] % (Auto) (0.0-10.0) % Eos % (Auto) (0.0-4.0) % Baso % (Auto) (0.0-2.0) % Neut # (Auto) (1.8-7.0) K/uL Lymph # (Auto) (1.0-4.3) K/uL [place] # (Auto) (0.0-0.8) K/uL Eos # (Auto) (0.0-0.7) K/uL Baso # (Auto) (0.0-0.2) K/uL Sodium (132-148) mmol/L Potassium (3.6-5.2) mmol/L Chloride (98-107) mmol/L Carbon Dioxide (22-30) mmol/L Anion Gap (10-20) BUN (7-17) mg/dL Creatinine (0.7-1.2) mg/dL Est GFR ( Amer) Est GFR (Non-Af Amer) Random Glucose (65-105) mg/dL Calcium (8.6-10.4) mg/dl Phosphorus (2.5-4.5) mg/dL Magnesium (1.6-2.3) mg/dL Total Bilirubin (0.2-1.3) mg/dL AST (14-36) U/L ALT (9-52) U/L Alkaline Phosphatase (38-126) U/L Total Protein (6.3-8.3) g/dL Albumin (3.5-5.0) g/dL Globulin (2.2-3.9) gm/dL Albumin/Globulin Ratio (1.0-2.1) TSH 3rd Generation (0.46-4.68) mIU/L Blood Type O POSITIVE Antibody Screen Negative Laboratory Results - last 24 hr 07/28/18 07/29/18 07/29/18 01:22 06:26 06:26 WBC 7.7 RBC 2.62 L Hgb 7.8 L Hct 22.4 L MCV 85.6 MCH 29.6 MCHC 34.6 RDW 15.5 H Plt Count 205 MPV 8.2 Neut % (Auto) 64.1 Lymph % (Auto) 27.4 [place] % (Auto) 6.4 Eos % (Auto) 1.5 Baso % (Auto) 0.6 Neut # (Auto) 5.0 Lymph # (Auto) 2.1 [place] # (Auto) 0.5 Eos # (Auto) 0.1 Baso # (Auto) 0.0 Sodium Potassium Chloride Carbon Dioxide Anion Gap BUN Creatinine Est GFR ( Amer) Est GFR (Non-Af Amer) Random Glucose Calcium Phosphorus Magnesium Total Bilirubin AST ALT Alkaline Phosphatase Total Protein Albumin Globulin Albumin/Globulin Ratio TSH 3rd Generation 7.35 H Blood Type O POSITIVE Antibody Screen Negative 07/29/18 06:26 WBC RBC Hgb Hct MCV MCH MCHC RDW Plt Count MPV Neut % (Auto) Lymph % (Auto) [place] % (Auto) Eos % (Auto) Baso % (Auto) Neut # (Auto) Lymph # (Auto) [place] # (Auto) Eos # (Auto) Baso # (Auto) Sodium 143 Potassium 3.8 Chloride 110 H Carbon Dioxide 22 Anion Gap 15 BUN 18 H Creatinine 0.8 Est GFR ( Amer) > 60 Est GFR (Non-Af Amer) > 60 Random Glucose 102 Calcium 8.3 L Phosphorus 2.6 Magnesium 2.0 Total Bilirubin 0.5 AST 16 ALT 25 Alkaline Phosphatase 28 L Total Protein 5.0 L Albumin 3.1 L Globulin 2.0 L Albumin/Globulin Ratio 1.5 TSH 3rd Generation Blood Type Antibody Screen Critical Care Progress Note - Nutrition Nutrition: Nutrition Category Date Time Status Heart Healthy Diet [DIET] Diets 07/29/18 Lunch Active Assessment/Plan - Assessment and Plan (Free Text) Assessment: Above patient seen and examined at [facility]. Patient requested that shee wanted to go home. Patient remains hemodynamically stable. - Date & Time Date: 07/29/18 Time: 14:22
[2018-07-29] MEDS: Sucralfate 1 gm/10 ml Oral Susp UD PO SCH ×4 (11:44→21:26)
--- NOTE | 2018-07-29 16:08 | CP.PCM.CON ---
History of Present Illness - History of Present Illness History of Present Illness: Surgery: Dr. Ma CC: Adenocarcinoma GE jxn HPI: 63F w. pmh of HTN, cholesterol, CHF, depression/bipolar, presents to ED 2 days ago after having black emesis and subsequent syncope. This has never happened in the past. 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 Pt denies any changes in appetite. No weight loss. PMH: See above PSH: appendectomy Meds: MAR reviewed ALL: PCN > Rash Social: No ETOH/tobacco/drugs Fhx: No esophageal/gastric CA Review of Systems - Review of Systems All systems: reviewed and no additional remarkable complaints except (HPI) Past Patient History - Infectious Disease Hx of Infectious Diseases: None - Past Medical History & Family History Past Medical History?: Yes - Past Social History Smoking Status: Never Smoked - CARDIAC Hx Congestive Heart Failure: Yes Hx Hypercholesterolemia: Yes Hx Hypertension: Yes - PULMONARY Hx Respiratory Disorders: No - NEUROLOGICAL Hx Neurological Disorder: No - HEENT Hx HEENT Problems: Yes Other/Comment: WEARS GLASSES - RENAL Hx Chronic Kidney Disease: No - ENDOCRINE/METABOLIC Hx Endocrine Disorders: No - HEMATOLOGICAL/ONCOLOGICAL Hx Blood Disorders: No Hx Blood Transfusions: No - INTEGUMENTARY Hx Dermatological Problems: No - MUSCULOSKELETAL/RHEUMATOLOGICAL Hx Musculoskeletal Disorders: No Hx Falls: Yes - GASTROINTESTINAL Hx Gastrointestinal Disorders: No - GENITOURINARY/GYNECOLOGICAL Hx Genitourinary Disorders: No - PSYCHIATRIC Hx Bipolar Disorder: Yes Hx Depression: Yes Hx Substance Use: No - SURGICAL HISTORY Hx Appendectomy: Yes - ANESTHESIA Hx Anesthesia: No Hx Anesthesia Reactions: No Hx Malignant Hyperthermia: No Meds Allergies/Adverse Reactions: Allergies Allergy/AdvReac Type Severity Reaction Status Date / Time Penicillins Allergy Intermediate Verified 07/27/18 14:10 - Medications Medications: Current Medications Bisoprolol Fumarate/HCTZ (Ziac 5-6.25 Mg) 1 tab PO DAILY [facility] Last Admin: 07/29/18 09:55 Dose: 1 tab Diltiazem HCl (Cardizem) 60 mg PO Q8H [facility] Last Admin: 07/29/18 11:44 Dose: 60 mg Haloperidol (Haldol) 5 mg PO DAILY [facility] Last Admin: 07/29/18 09:56 Dose: 5 mg Metoprolol Tartrate (Lopressor) 50 mg PO Q12H [facility] Last Admin: 07/27/18 23:43 Dose: 50 mg Pantoprazole Sodium (Protonix Ec Tab) 40 mg PO BID [facility] Last Admin: 07/29/18 09:56 Dose: 40 mg Quetiapine Fumarate (Seroquel) 200 mg PO [facility] Last Admin: 07/28/18 21:13 Dose: 200 mg Saccharomyces Boulardii (Florastor) 250 mg PO TID [facility] Last Admin: 07/29/18 14:13 Dose: 250 mg Spironolactone (Aldactone) 25 mg PO DAILY [facility] Last Admin: 07/29/18 09:55 Dose: 25 mg Sucralfate (Carafate Oral Susp) 1 gm PO QID [facility] Last Admin: 07/29/18 14:12 Dose: 1 gm Temazepam (Restoril) 15 mg PO [facility] Last Admin: 07/28/18 21:13 Dose: 15 mg Trazodone HCl (Desyrel) 50 mg PO [facility] Last Admin: 07/28/18 22:23 Dose: 50 mg Physical Exam - Constitutional Appears: Non-toxic, No Acute Distress - Head Exam Head Exam: ATRAUMATIC, NORMOCEPHALIC - Eye Exam Eye Exam: EOMI - ENT Exam ENT Exam: Mucous Membranes Moist - Neck Exam Neck exam: Positive for: Full Rom - Respiratory Exam Respiratory Exam: NORMAL BREATHING PATTERN. absent: Accessory Muscle Use, Respiratory Distress - GI/Abdominal Exam GI & Abdominal Exam: Soft. absent: Distended, Firm, Guarding, Rebound, Rigid, Tenderness - Extremities Exam Extremities exam: Negative for: calf tenderness, pedal edema - Neurological Exam Neurological exam: Alert, Oriented x3 - Skin Skin Exam: Dry, Warm Results - Vital Signs Recent Vital Signs: Last Vital Signs Temp 97.8 F 07/29/18 14:23 Pulse 88 07/29/18 14:30 Resp 29 H 07/29/18 14:30 BP 90/57 L 07/29/18 14:23 Pulse Ox 98 07/29/18 12:00 - Labs Result Diagrams: 07/29/18 06:26 07/29/18 06:26 Labs: Laboratory Results - last 24 hr 07/28/18 07/28/18 07/29/18 01:22 11:37 06:26 WBC RBC Hgb Hct MCV MCH MCHC RDW Plt Count MPV Neut % (Auto) Lymph % (Auto) [place] % (Auto) Eos % (Auto) Baso % (Auto) Neut # (Auto) Lymph # (Auto) [place] # (Auto) Eos # (Auto) Baso # (Auto) Sodium Potassium Chloride Carbon Dioxide Anion Gap BUN Creatinine Est GFR ( Amer) Est GFR (Non-Af Amer) POC Glucose (mg/dL) 148 H Random Glucose Lactic Acid Calcium Phosphorus Magnesium Total Bilirubin AST ALT Alkaline Phosphatase Total Protein Albumin Globulin Albumin/Globulin Ratio TSH 3rd Generation 7.35 H Blood Type O POSITIVE Antibody Screen Negative 07/29/18 07/29/18 07/29/18 06:26 06:26 15:39 WBC 7.7 RBC 2.62 L Hgb 7.8 L Hct 22.4 L MCV 85.6 MCH 29.6 MCHC 34.6 RDW 15.5 H Plt Count 205 MPV 8.2 Neut % (Auto) 64.1 Lymph % (Auto) 27.4 [place] % (Auto) 6.4 Eos % (Auto) 1.5 Baso % (Auto) 0.6 Neut # (Auto) 5.0 Lymph # (Auto) 2.1 [place] # (Auto) 0.5 Eos # (Auto) 0.1 Baso # (Auto) 0.0 Sodium 143 Potassium 3.8 Chloride 110 H Carbon Dioxide 22 Anion Gap 15 BUN 18 H Creatinine 0.8 Est GFR ( Amer) > 60 Est GFR (Non-Af Amer) > 60 POC Glucose (mg/dL) Random Glucose 102 Lactic Acid 1.4 Calcium 8.3 L Phosphorus 2.6 Magnesium 2.0 Total Bilirubin 0.5 AST 16 ALT 25 Alkaline Phosphatase 28 L Total Protein 5.0 L Albumin 3.1 L Globulin 2.0 L Albumin/Globulin Ratio 1.5 TSH 3rd Generation Blood Type Antibody Screen Assessment & Plan - Assessment and Plan (Free Text) Assessment: 63F w. adenocarcinoma of GE jxn -Will need CT C/A/P and PET scan for staging -CEA levels -f/u oncology recommendations -will follow -d/w attending Zohaib PGY4
[2018-07-29 17:48] LABS: BASO # 0.1 K/uL (0.0-0.2); BASO % 0.6 % (0.0-2.0); EOS # 0.2 K/uL (0.0-0.7); EOS % 2.1 % (0.0-4.0); HEMOGLOBIN 9.7 g/dL (11.0-16.0); LYMPH % 24.1 % (20.0-40.0); MEAN CELL VOLUME 86.4 fL (81.0-99.0); MEAN CORPUSCULAR HEMOGLOBIN 30.1 pg (27.0-31.0); MEAN CORPUSCULAR HGB CONC 34.9 g/dL (33.0-37.0); MEAN PLATELET VOLUME 7.9 fL (7.2-11.7); MONO # 0.7 K/uL (0.0-0.8); MONO % 8.5 % (0.0-10.0); NEUT # 5.4 K/uL (1.8-7.0); NEUT % 64.7 % (50.0-75.0); NRBC % 0.3 % (0.0-2.0); RBC 3.2 Mil/uL (3.80-5.20); RED CELL DISTRIBUTION WIDTH 15.5 % (11.5-14.5); WHITE BLOOD COUNT 8.3 K/uL (4.8-10.8)
--- NOTE | 2018-07-29 19:02 | CP.PCM.CON ---
History of Present Illness - History of Present Illness History of Present Illness: 63 year old female with a history of osteoarthritis on NSAIDS, atrial fibrillation on anticoagulation, presenting with syncope, anemia, and melena secondary to upper GI bleeding, found to have adenocarcinoma of the GE junction. The patient notes to feeling better since her blood transfusion. She denies further melanotic stools, N/V, or diarrheia. She denies weightloss. Past medical history: Afib, osteoarthritis Past surgical history: Denies Family history: Mother had lung cancer (non smoker) Social history: Denies tobacco, alcohol, and illicit drug use. Allergies: Penicillins Review of systems: All remaining review of systems including HEENT, cardiovascular, respiratory, gastrointestinal, genitourinary, musculoskeletal, dermatologic, neurologic, and psychiatric are negative unless mentioned in the HPI. Past Patient History - Infectious Disease Hx of Infectious Diseases: None - Past Medical History & Family History Past Medical History?: Yes - Past Social History Smoking Status: Never Smoked - CARDIAC Hx Congestive Heart Failure: Yes Hx Hypercholesterolemia: Yes Hx Hypertension: Yes - PULMONARY Hx Respiratory Disorders: No - NEUROLOGICAL Hx Neurological Disorder: No - HEENT Hx HEENT Problems: Yes Other/Comment: WEARS GLASSES - RENAL Hx Chronic Kidney Disease: No - ENDOCRINE/METABOLIC Hx Endocrine Disorders: No - HEMATOLOGICAL/ONCOLOGICAL Hx Blood Disorders: No Hx Blood Transfusions: No - INTEGUMENTARY Hx Dermatological Problems: No - MUSCULOSKELETAL/RHEUMATOLOGICAL Hx Musculoskeletal Disorders: No Hx Falls: Yes - GASTROINTESTINAL Hx Gastrointestinal Disorders: No - GENITOURINARY/GYNECOLOGICAL Hx Genitourinary Disorders: No - PSYCHIATRIC Hx Bipolar Disorder: Yes Hx Depression: Yes Hx Substance Use: No - SURGICAL HISTORY Hx Appendectomy: Yes - ANESTHESIA Hx Anesthesia: No Hx Anesthesia Reactions: No Hx Malignant Hyperthermia: No Meds Allergies/Adverse Reactions: Allergies Allergy/AdvReac Type Severity Reaction Status Date / Time Penicillins Allergy Intermediate Verified 07/27/18 14:10 - Medications Medications: Current Medications Bisoprolol Fumarate/HCTZ (Ziac 5-6.25 Mg) 1 tab PO DAILY [facility] Last Admin: 07/29/18 09:55 Dose: 1 tab Diltiazem HCl (Cardizem) 60 mg PO Q8H [facility] Last Admin: 07/29/18 11:44 Dose: 60 mg Haloperidol (Haldol) 5 mg PO DAILY [facility] Last Admin: 07/29/18 09:56 Dose: 5 mg Metoprolol Tartrate (Lopressor) 50 mg PO Q12H [facility] Last Admin: 07/27/18 23:43 Dose: 50 mg Pantoprazole Sodium (Protonix Ec Tab) 40 mg PO BID [facility] Last Admin: 07/29/18 17:22 Dose: 40 mg Quetiapine Fumarate (Seroquel) 200 mg PO [facility] Last Admin: 07/28/18 21:13 Dose: 200 mg Saccharomyces Boulardii (Florastor) 250 mg PO TID [facility] Last Admin: 07/29/18 17:22 Dose: 250 mg Spironolactone (Aldactone) 25 mg PO DAILY [facility] Last Admin: 07/29/18 09:55 Dose: 25 mg Sucralfate (Carafate Oral Susp) 1 gm PO QID [facility] Last Admin: 07/29/18 17:22 Dose: 1 gm Temazepam (Restoril) 15 mg PO [facility] Last Admin: 07/28/18 21:13 Dose: 15 mg Trazodone HCl (Desyrel) 50 mg PO [facility] Last Admin: 07/28/18 22:23 Dose: 50 mg Physical Exam - Head Exam Head Exam: ATRAUMATIC - Eye Exam Eye Exam: Normal appearance - ENT Exam ENT Exam: Mucous Membranes Dry - Respiratory Exam Respiratory Exam: NORMAL BREATHING PATTERN - Cardiovascular Exam Cardiovascular Exam: +S1, +S2 - GI/Abdominal Exam GI & Abdominal Exam: Normal Bowel Sounds Results - Vital Signs Recent Vital Signs: Last Vital Signs Temp 98.6 F 07/29/18 16:00 Pulse 92 H 07/29/18 18:00 Resp 23 07/29/18 18:00 BP 101/59 L 07/29/18 16:10 Pulse Ox 99 07/29/18 16:10 - Labs Result Diagrams: 07/30/18 06:02 07/30/18 06:01 Labs: Laboratory Results - last 24 hr 07/28/18 07/28/18 07/29/18 01:22 11:37 06:26 WBC RBC Hgb Hct MCV MCH MCHC RDW Plt Count MPV Neut % (Auto) Lymph % (Auto) [place] % (Auto) Eos % (Auto) Baso % (Auto) Neut # (Auto) Lymph # (Auto) [place] # (Auto) Eos # (Auto) Baso # (Auto) Sodium Potassium Chloride Carbon Dioxide Anion Gap BUN Creatinine Est GFR ( Amer) Est GFR (Non-Af Amer) POC Glucose (mg/dL) 148 H Random Glucose Lactic Acid Calcium Phosphorus Magnesium Total Bilirubin AST ALT Alkaline Phosphatase Total Protein Albumin Globulin Albumin/Globulin Ratio [facility] 3rd Generation 7.35 H Blood Type O POSITIVE Antibody Screen Negative 07/29/18 07/29/18 07/29/18 06:26 06:26 15:39 WBC 7.7 RBC 2.62 L Hgb 7.8 L Hct 22.4 L MCV 85.6 MCH 29.6 MCHC 34.6 RDW 15.5 H Plt Count 205 MPV 8.2 Neut % (Auto) 64.1 Lymph % (Auto) 27.4 [place] % (Auto) 6.4 Eos % (Auto) 1.5 Baso % (Auto) 0.6 Neut # (Auto) 5.0 Lymph # (Auto) 2.1 [place] # (Auto) 0.5 Eos # (Auto) 0.1 Baso # (Auto) 0.0 Sodium 143 Potassium 3.8 Chloride 110 H Carbon Dioxide 22 Anion Gap 15 BUN 18 H Creatinine 0.8 Est GFR ( Amer) > 60 Est GFR (Non-Af Amer) > 60 POC Glucose (mg/dL) Random Glucose 102 Lactic Acid 1.4 Calcium 8.3 L Phosphorus 2.6 Magnesium 2.0 Total Bilirubin 0.5 AST 16 ALT 25 Alkaline Phosphatase 28 L Total Protein 5.0 L Albumin 3.1 L Globulin 2.0 L Albumin/Globulin Ratio 1.5 TSH 3rd Generation Blood Type Antibody Screen 07/29/18 17:42 WBC 8.3 RBC 3.20 L Hgb 9.7 L Hct 27.7 L MCV 86.4 MCH 30.1 MCHC 34.9 RDW 15.5 H Plt Count 218 MPV 7.9 Neut % (Auto) 64.7 Lymph % (Auto) 24.1 [place] % (Auto) 8.5 Eos % (Auto) 2.1 Baso % (Auto) 0.6 Neut # (Auto) 5.4 Lymph # (Auto) 2.0 [place] # (Auto) 0.7 Eos # (Auto) 0.2 Baso # (Auto) 0.1 Sodium Potassium Chloride Carbon Dioxide Anion Gap BUN Creatinine Est GFR ( Amer) Est GFR (Non-Af Amer) POC Glucose (mg/dL) Random Glucose Lactic Acid Calcium Phosphorus Magnesium Total Bilirubin AST ALT Alkaline Phosphatase Total Protein Albumin Globulin Albumin/Globulin Ratio TSH 3rd Generation Blood Type Antibody Screen Assessment & Plan (1) Anemia Assessment and Plan: acute GI blood loss will evaluate iron stores transfusion support Status: Acute (2) GE junction carcinoma Assessment and Plan: will need staging imaging; CT C/A/P further treatment recommendations based on staging Thank you for this interesting consult. Status: Acute
--- NOTE | 2018-07-29 19:13 | HP ---
Copied To: Candice Mckeon MD Attending MD: Candice Mckeon MD. HISTORY OF PRESENT ILLNESS: This is a 63-year-old [place] female, who presented to the emergency room after a fall and abrasion to the left knee. The patient was brought to emergency room hypotensive and in atrial fibrillation with rapid ventricular rate. The patient was known to have atrial fibrillation before and she was on Xarelto anticoagulation. The patient was evaluated. The patient also had symptoms of vomiting coffee-ground material. The patient was evaluated in emergency room and her hemoglobin initially was 7.8, that dropped to 6.8. The patient was admitted initially to the telemetry floor and then transferred to intensive care unit. GI was consulted also. Other review of system is negative. ALLERGIES: POSITIVE TO PENICILLIN. PAST MEDICAL HISTORY: Atrial fibrillation, on Xarelto, hypertension, and hypertriglyceridemia. SOCIAL HISTORY: No history of smoking, EtOH or substance abuse. FAMILY HISTORY: Not contributory. MEDICATIONS: Reviewed as per MAR. PHYSICAL EXAMINATION: GENERAL: The patient was in bed, not in any cardiopulmonary distress. VITAL SIGNS: Blood pressure 105/59, temperature 98.4, respiratory rate 20, and pulse 89. HEENT: Pupils equal and reactive to light. Pale-appearing mucosa. NECK: Supple. No JVD. No carotid bruit. No lymph node. No thyromegaly. CHEST AND LUNGS: Bilateral symmetrical expansion. Good air exchange. No rales. No rhonchi. CARDIOVASCULAR: PMI not localized. S1 and S2. No additional sounds. ABDOMEN: Normoactive bowel sounds. No tenderness. No organomegaly. No masses. EXTREMITIES: No cyanosis. No clubbing. No edema. [employer]: Alert, awake, and oriented x2. No neurological deficit could be appreciated. ASSESSMENT: Upper gastrointestinal bleeding, anemia of acute blood loss, atrial fibrillation with rapid ventricular rate, fall with abrasion to the left knee. PLAN Hold the aspirin and Xarelto that were inpatient's home medications. Intensive care unit management and follow GI recommendations and Cardiology recommendations. Candice Mckeon MD
--- NOTE | 2018-07-29 20:47 | PN ---
Copied To: Silas Mar MD Attending MD: Silas Mar MD DATE: 07/29/2018 SUBJECTIVE: The patient is currently in atrial fibrillation with controlled ventricular response, and she is off IV Cardizem. The patient is having melanotic bowel movements. PHYSICAL EXAMINATION: VITAL SIGNS: Blood pressure 101/59, heart rate 73, temperature 98.6, and respirations 18. HEENT: Pale conjunctivae. HEART: S1 and S2 regular. ABDOMEN: Soft. EXTREMITIES: No edema. LABORATORY DATA: Today's SMA-7; sodium 143, potassium 3.8, chloride 110, CO2 of 22, glucose 102, BUN 18, and creatinine 0.8, calcium 8.3. TSH is slightly elevated at 7.35. Today's hemoglobin and hematocrit are 7.8 and 22.4. White count and platelet count are within normal limits. of the biopsy report is consistent with invasive adenocarcinoma, moderately to poorly differentiated. ASSESSMENT: 1. Chronic atrial fibrillation. 2. Hypothyroidism. 3. Lower gastrointestinal bleeding. 4. Moderately to poorly differentiated esophageal adenocarcinoma. RECOMMENDATIONS: The patient is current receiving 1 unit of packed RBC transfusion. Continue Aldactone 25 mg once a day, Cardizem 60 mg every 8 hours, Lopressor 50 mg twice a day, Ziac at 1 tablet once a day. Anticoagulation is contraindicated until a source of bleeding is identified. Case was discussed with Dr. Quiroz, the hospitalist, as well as medical billing coordinator, Dr. Bryant, and oncology consultation is being requested. Silas Mar MD
[2018-07-29] MEDS ORDERED: Iohexol 240 (50 ml) PO ONE (21:34)
[2018-07-29] MEDS ORDERED: Iodixanol 320 mg/ml 150 ml Bottle IV ONE (22:09)
[2018-07-30 06:18] LABS: BASO # 0.1 K/uL (0.0-0.2); BASO % 0.8 % (0.0-2.0); EOS # 0.1 K/uL (0.0-0.7); EOS % 1.9 % (0.0-4.0); HEMOGLOBIN 8.8 g/dL (11.0-16.0); LYMPH # 2.1 K/uL (1.0-4.3); LYMPH % 27.7 % (20.0-40.0); MEAN CELL VOLUME 86.2 fL (81.0-99.0); MEAN CORPUSCULAR HEMOGLOBIN 30.1 pg (27.0-31.0); MEAN PLATELET VOLUME 8.8 fL (7.2-11.7); MONO # 0.5 K/uL (0.0-0.8); MONO % 6.7 % (0.0-10.0); NEUT # 4.7 K/uL (1.8-7.0); NEUT % 62.9 % (50.0-75.0); NRBC % 0.7 % (0.0-2.0); RBC 2.93 Mil/uL (3.80-5.20); RED CELL DISTRIBUTION WIDTH 15.4 % (11.5-14.5); WHITE BLOOD COUNT 7.4 K/uL (4.8-10.8)
[2018-07-30 06:27] LABS: ALB/GLOB RATIO 1.8 (1.0-2.1); ALBUMIN 3.4 g/dL (3.5-5.0); ALT/SGPT 26 U/L (9-52); AST/SGOT 18 U/L (14-36); BLOOD UREA NITROGEN 19 mg/dL (7-17); CALCIUM 8.6 mg/dl (8.6-10.4); GFR NON-AFRICAN AMERICAN > 60; HDL CHOLESTEROL 25 mg/dL (30-70)
[2018-07-30 06:31] LABS: LDL CHOLESTEROL 53 mg/dL (0-129)
[2018-07-30] MEDS: Saccharomyces Boulardi 250 mg Cap PO SCH ×3 (09:24→17:07)
[2018-07-30] MEDS: Pantoprazole 40 mg EC Tab PO SCH ×2 (09:24→17:07)
[2018-07-30] MEDS: Sucralfate 1 gm/10 ml Oral Susp UD PO SCH ×4 (09:24→21:05)
[2018-07-30] MEDS: Bisoprolol-HCTZ 5-6.25 mg Tab PO SCH (09:25)
--- NOTE | 2018-07-30 10:36 | CT ---
Date of service: 07/29/2018 PROCEDURE: CT Chest, Abdomen and Pelvis with intravenous contrast HISTORY: staging esophageal CA COMPARISON: None available. TECHNIQUE: IV dose administered: 100 mL Visipaque 320 Radiation dose: Total exam DLP = 919.8 mGy-cm. This CT exam was performed using one or more of the following dose reduction techniques: Automated exposure control, adjustment of the mA and/or kV according to patient size, and/or use of iterative reconstruction technique. FINDINGS: LUNGS: Clear. No nodule, mass or consolidation. MEDIASTINUM: Unremarkable. Normal caliber aorta and pulmonary arterial trunk. No aortic dissection. Cardiomegaly. Coronary arterial and valvular calcifications. Heavy mitral annular calcification. LYMPH NODES: Unremarkable. PLEURA: Unremarkable. No pneumothorax. No pleural fluid. LIVER: Unremarkable. No gross lesion or ductal dilatation. GALLBLADDER AND BILE DUCTS: Cholelithiasis with gallbladder wall thickening/edema. PANCREAS: Unremarkable. No gross lesion or ductal dilatation. SPLEEN: Unremarkable. ADRENALS: Left adrenal 1.6 x 2.0 cm indeterminate nodule (75 HU). KIDNEYS AND URETERS: Right upper pole 2.3 malrotation x 2.1 cm cyst. Bilateral renal malrotation. No hydronephrosis. No solid mass. VASCULATURE: Unremarkable. No aortic aneurysm. BOWEL: Thickening in the gastroesophageal junction. No obstruction. No gross mural thickening. APPENDIX: No findings to suggest acute appendicitis. PERITONEUM: Tiny fat containing umbilical hernia. No free fluid. No free air. LYMPH NODES: Unremarkable. No enlarged lymph nodes. BLADDER: Unremarkable. REPRODUCTIVE: Unremarkable. BONES: No acute fracture. OTHER FINDINGS: None. IMPRESSION: Thickening of the gastroesophageal junction may reflect reported history of esophageal cancer. Indeterminate 2.0 cm left adrenal nodule.
[2018-07-30 12:49] LABS: HEMOGLOBIN 9.6 g/dL (11.0-16.0); MEAN CELL VOLUME 86.6 fL (81.0-99.0); MEAN CORPUSCULAR HEMOGLOBIN 30.2 pg (27.0-31.0); MEAN CORPUSCULAR HGB CONC 34.9 g/dL (33.0-37.0); MEAN PLATELET VOLUME 8.6 fL (7.2-11.7); RBC 3.18 Mil/uL (3.80-5.20); RED CELL DISTRIBUTION WIDTH 15.7 % (11.5-14.5); WHITE BLOOD COUNT 8.4 K/uL (4.8-10.8)
--- NOTE | 2018-07-30 14:34 | CP.PCM.PN ---
Subjective - Date & Time of Evaluation Date of Evaluation: 07/30/18 Time of Evaluation: 14:22 - Subjective Subjective: Requested by Dr. Mckeon. Reason for consultation: EG junction adenocarcinoma. Pt s/e. Progress notes and imaging studies reviewed. 63 yo w/f presented to ER with hematemesis and low hct. Endoscopy: Invasive adenocarcinom,EG Junction. CT-C/A/P with contrast: Approx 6cm long polypoid mass ,EG Junction. Negative Regional and distant nodes. EUS and PET will be helpful to complete staging w/u. a/p: 1. EG Jxn. invasive adenocarcinoma. 2. PET and EUS for complete staging w/u/ 3. Will follow. Objective - Vital Signs/Intake and Output Vital Signs (last 24 hours): Temp Pulse Resp BP Pulse Ox 99 F 93 H 24 129/79 99 07/30/18 12:00 07/30/18 13:00 07/30/18 13:00 07/30/18 12:32 07/30/18 12:32 - Medications Medications: Current Medications Bisoprolol Fumarate/HCTZ (Ziac 5-6.25 Mg) 1 tab PO DAILY [facility] Last Admin: 07/30/18 09:25 Dose: 1 tab Diltiazem HCl (Cardizem) 60 mg PO Q8H [facility] Last Admin: 07/30/18 12:32 Dose: 60 mg Haloperidol (Haldol) 5 mg PO DAILY [facility] Last Admin: 07/30/18 09:23 Dose: 5 mg Metoprolol Tartrate (Lopressor) 50 mg PO Q12H [facility] Last Admin: 07/27/18 23:43 Dose: 50 mg Pantoprazole Sodium (Protonix Ec Tab) 40 mg PO BID [facility] Last Admin: 07/30/18 09:24 Dose: 40 mg Quetiapine Fumarate (Seroquel) 200 mg PO HS [facility] Last Admin: 07/29/18 21:26 Dose: 200 mg Saccharomyces Boulardii (Florastor) 250 mg PO TID [facility] Last Admin: 07/30/18 13:25 Dose: 250 mg Spironolactone (Aldactone) 25 mg PO DAILY [facility] Last Admin: 07/30/18 09:23 Dose: 25 mg Sucralfate (Carafate Oral Susp) 1 gm PO QID [facility] Last Admin: 07/30/18 13:25 Dose: 1 gm Temazepam (Restoril) 15 mg PO HS [facility] Last Admin: 07/29/18 21:27 Dose: 15 mg Trazodone HCl (Desyrel) 50 mg PO HS [facility] Last Admin: 07/29/18 21:26 Dose: 50 mg - Labs Labs: 07/30/18 12:43 07/30/18 06:01 PT 13.5 SECONDS (9.7-12.2) H D 07/28/18 06:54 INR 1.2 D 07/28/18 06:54 APTT 35 SECONDS (21-34) H 07/27/18 14:40
--- NOTE | 2018-07-30 17:08 | PN ---
Copied To: Silas Mar MD Attending MD: Silas Mar MD DATE: 07/30/2018 SUBJECTIVE: The patient reported melena. She denies any chest pain. She is currently in atrial fibrillation with controlled ventricular response. PHYSICAL EXAMINATION: VITAL SIGNS: Blood pressure 107/59, heart rate 82, respirations 24, temperature 98.2. HEENT: Pale conjunctivae. CHEST: Clear. HEART: S1 and S2 regular. ABDOMEN: Soft. EXTREMITIES: No edema. LABORATORY DATA: Today's SMA-7; sodium 140, potassium 3.7, chloride 106, CO2 of 23, glucose 118, BUN 19, and creatinine 0.9. Hemoglobin and hematocrit 8.8 and 25.2. White count and platelet count are within normal limit. Checked abdomen and pelvis CT scan junction may reflect severe cancer. Indeterminate 2 cm left adrenal nodule. ASSESSMENT AND PLAN: 1. Esophageal adenocarcinoma. 2. Chronic atrial fibrillation. 3. Anemia, requiring packed red blood cell transfusion. 4. Bipolar disorder. 5. Moderate pulmonary hypertension. RECOMMENDATIONS: Continue Aldactone 25 mg once a day, Cardizem 60 mg every 8 hours, Lopressor 50 mg twice a day, and Ziac one tablet once a day and anticoagulation is not justified so far. Silas Mar MD
--- NOTE | 2018-07-30 18:47 | CP.PCM.PN ---
<Osbaldo Tarango - Last Filed: 07/30/18 18:37> Subjective - Date & Time of Evaluation Date of Evaluation: 07/30/18 Time of Evaluation: 18:37 - Subjective Subjective: PGY-[address] Quiroz Patient seen and examined at bedside. Patient complaining of L-sided abdominal pain and did have one episode of melanotic stool yesterday. Patient is otherwise comfortable. The medical team discussed with patient the findings on her CT and she had already been aware of her diagnosis of GI cancer. Pt denies nausea, vomiting, constipation, headache, chest pain. Objective - Vital Signs/Intake and Output Vital Signs (last 24 hours): Temp Pulse Resp BP Pulse Ox 98.6 F 84 20 109/69 97 07/30/18 16:20 07/30/18 16:20 07/30/18 16:20 07/30/18 16:20 07/30/18 16:20 Intake and Output: 07/30/18 07/30/18 06:59 18:59 Intake Total 1000 Output Total 700 Balance 300 - Medications Medications: Current Medications Bisoprolol Fumarate/HCTZ (Ziac 5-6.25 Mg) 1 tab PO DAILY [facility] Last Admin: 07/30/18 09:25 Dose: 1 tab Diltiazem HCl (Cardizem) 60 mg PO Q8H [facility] Last Admin: 07/30/18 12:32 Dose: 60 mg Haloperidol (Haldol) 5 mg PO DAILY [facility] Last Admin: 07/30/18 09:23 Dose: 5 mg Metoprolol Tartrate (Lopressor) 50 mg PO Q12H [facility] Last Admin: 07/27/18 23:43 Dose: 50 mg Pantoprazole Sodium (Protonix Ec Tab) 40 mg PO BID [facility] Last Admin: 07/30/18 17:07 Dose: 40 mg Quetiapine Fumarate (Seroquel) 200 mg PO HS [facility] Last Admin: 07/29/18 21:26 Dose: 200 mg Saccharomyces Boulardii (Florastor) 250 mg PO TID [facility] Last Admin: 07/30/18 17:07 Dose: 250 mg Spironolactone (Aldactone) 25 mg PO DAILY [facility] Last Admin: 07/30/18 09:23 Dose: 25 mg Sucralfate (Carafate Oral Susp) 1 gm PO QID [facility] Last Admin: 07/30/18 17:07 Dose: 1 gm Temazepam (Restoril) 15 mg PO HS [facility] Last Admin: 07/29/18 21:27 Dose: 15 mg Trazodone HCl (Desyrel) 50 mg PO HS [facility] Last Admin: 07/29/18 21:26 Dose: 50 mg - Labs Labs: 07/30/18 12:43 07/30/18 06:01 PT 13.5 SECONDS (9.7-12.2) H D 07/28/18 06:54 INR 1.2 D 07/28/18 06:54 APTT 35 SECONDS (21-34) H 07/27/18 14:40 - Constitutional Appears: Well, No Acute Distress - Head Exam Head Exam: ATRAUMATIC, NORMAL INSPECTION - Eye Exam Eye Exam: EOMI Pupil Exam: NORMAL ACCOMODATION, PERRL - ENT Exam ENT Exam: Mucous Membranes Moist - Respiratory Exam Respiratory Exam: Clear to Ausculation Bilateral, NORMAL BREATHING PATTERN. absent: Rhonchi, Wheezes - Cardiovascular Exam Cardiovascular Exam: REGULAR RHYTHM, +S1, +S2 - GI/Abdominal Exam GI & Abdominal Exam: Soft, Normal Bowel Sounds. absent: Tenderness Additional comments: +LLQ pain on [id number] palpation. No rebound or guarding. - Extremities Exam Extremities Exam: Full ROM, Normal Inspection - Neurological Exam Neurological Exam: Alert, Awake, CN II-XII Intact, Normal Gait, Oriented x3 Assessment and Plan - Assessment and Plan (Free Text) Assessment: Assessment/Plan 1) GI bleed, Non-Bleeding Ulcer, Hiatal Hernia, Chronic Gastritis, Melanotic Stool * GI (Dr. Gaines) on case-->help appreciated * S/P Upper endoscopy (07/27/18). Results are as follows: non-bleeding esophageal ulcer, injected and biopsied. Hiatal hernia. Chronic gastritis * Biopsy results show invasive adenocarcinoma, mod to poor differentiated and invasion to lamina propria at GE junction * Patient transfused 3U blood total. HgB 9.6 today. * Protonix 40mg PO BID * Pending PT clearance that patient has regained sufficient strength for d/c * Pt to f/u in one week with Dr. Fernandez as outpatient once patient is discharged * F/u with GI to see if patient will require outpatient colonoscopy 2) Invasive mucinous adenocarcinoma Anemia of Acute Blood Loss * GI (Dr. Gaines) on case-->help appreciated * Heme/onc, Dr. Fernandez on case--F/u recommendations * Surgery, Dr. Ma on case-->f/u recommendations * S/P Upper endoscopy (07/27/18). * Pathology (GE junction): invasive adenocarcinoma. moderate to poorly differentiated/ invasive carcinoma at least invades the lamina propria. Alcian blue stain highlights mucin * pending CT Chest/Abd/Pelvis - "thickening of GE junction may represent reported history of espophageal cancer" * Pending PT clearance that patient has regained sufficient strength for d/c * Pt to f/u in one week with Dr. Fernandez as outpatient once patient is discharged * F/u with GI to see if patient will require outpatient colonoscopy 3) Atrial fibrillation with RVR * Cardiology (Dr. Chatman) on the case-->help appreciated * Contraindication indication to chemical anticoagulation secondary to GI bleed/ melanotic stool * Cardizem 60mg PO Q8H * Bisoprolol/hctz 5-6/25mg 1 tab PO daily * Pending echocardiogram 4) Hypertension * Bisoprolol/hctz 5-6/25mg 1 tab PO daily * Cardizem 60mg PO Q8H * Aldactone 25mg PO daily 5) History of CHF * unknown if systolic vs diastolic * Echo pending * Contraindication indication to chemical anticoagulation secondary to GI bleed/ melanotic stool * Bisoprolol/hctz 5-6/25mg 1 tab PO daily * f/u to check fluid overload given recent blood transfusions 6) Depression * Haldol 5mg PO daily * [id number] POqHS * Trazodone 50mg PO HS * Seroquel 200mg PO qHS 7) Abnormal TSH * TSH 7.35. * Repeat Free T4 and TSH 8) Prophylaxis * Chemical anticoagulation contraindication secondary to melanotic stools and gi bleed * Protonix 40mg PO BID <Ramila Quiroz V - Last Filed: 07/30/18 21:49> Objective - Vital Signs/Intake and Output Vital Signs (last 24 hours): Temp Pulse Resp BP Pulse Ox 98.6 F 102 H 20 109/69 97 07/30/18 16:20 07/30/18 18:00 07/30/18 16:20 07/30/18 16:20 07/30/18 16:20 Intake and Output: 07/30/18 07/31/18 18:59 06:59 Intake Total 1000 Output Total 700 Balance 300 - Medications Medications: Current Medications Bisoprolol Fumarate/HCTZ (Ziac 5-6.25 Mg) 1 tab PO DAILY [facility] Last Admin: 07/30/18 09:25 Dose: 1 tab Diltiazem HCl (Cardizem) 60 mg PO Q8H [facility] Last Admin: 07/30/18 21:05 Dose: 60 mg Haloperidol (Haldol) 5 mg PO DAILY [facility] Last Admin: 07/30/18 09:23 Dose: 5 mg Metoprolol Tartrate (Lopressor) 50 mg PO Q12H [facility] Last Admin: 07/27/18 23:43 Dose: 50 mg Pantoprazole Sodium (Protonix Ec Tab) 40 mg PO BID [facility] Last Admin: 07/30/18 17:07 Dose: 40 mg Quetiapine Fumarate (Seroquel) 200 mg PO [facility] Last Admin: 07/30/18 21:05 Dose: 200 mg Spironolactone (Aldactone) 25 mg PO DAILY [facility] Last Admin: 07/30/18 09:23 Dose: 25 mg Sucralfate (Carafate Oral Susp) 1 gm PO QID [facility] Last Admin: 07/30/18 21:05 Dose: 1 gm Temazepam (Restoril) 15 mg PO [facility] Last Admin: 07/30/18 21:05 Dose: 15 mg Trazodone HCl (Desyrel) 50 mg PO [facility] Last Admin: 07/30/18 21:05 Dose: 50 mg - Labs Labs: 07/30/18 12:43 07/30/18 06:01 PT 13.5 SECONDS (9.7-12.2) H D 07/28/18 06:54 INR 1.2 D 07/28/18 06:54 APTT 35 SECONDS (21-34) H 07/27/18 14:40 Attending/Attestation - Attestation I have personally seen and examined this patient.: Yes I have fully participated in the care of the patient.: Yes I have reviewed all pertinent clinical information, including history, physical exam and plan: Yes Notes (Text): Hospitalist Service Covering Dr. Mckeon (He is away until 08/03/18 due to holiday) Patient seen, examined, and case discussed with medical program specialist. Patient seen at bedside. Patient's nurse reports no event overnight. Patient reports she has melanotic stool overnight. We will continue to monitor H/H. Hemoglobin remains stable in 9; patient has completed 3 units of PRBC during hospitalization. Patient has completed CT chest/abdomen/pelvis per heme-oncology identifying thickening consistent with esophageal cancer. Patient will need to f/u heme-oncology for further workup. Per CT surgery, recommended for PET and EUS. Patient's goal is to be able to go home. She does not want rehab. We will f/u with PT/OT. Monitor H/H to make sure no acute drops. Given complaint of melanotic stool, cannot anticoagulate patient at this time per cardiology. Assessment/Plan 1) GI bleed Non-Bleeding Ulcer Hiatal Hernia Chronic Gastritis Melanotic Stool Assessment/Plan * GI (Dr. Gaines) on case-->help appreciated * S/P Upper endoscopy (07/27/18). Results are as follows: non-bleeding esophageal ulcer, injected and biopsied. Hiatal hernia. Chronic gastritis * Biopsy results show invasive adenocarcinoma, mod to poor differentiated and invasion to lamina propria at GE junction * Protonix 40mg PO BID * Sulfrate 1 gm PO BID * No nsaids/aspirin 2) Invasive mucinous adenocarcinoma Anemia of Acute Blood Loss Assessment/Plan * GI (Dr. Gaines) on case-->help appreciated * Heme/onc, Dr. Fernandez on case-->> * completed CT chest/abdomen/pelvis for staging; official report available in EMR * Surgery, Dr. Ma on case * Recommend for PET and EUS * S/P Upper endoscopy (07/27/18). * Pathology (GE junction): invasive adenocarcinoma. moderate to poorly differentiated/ invasive carcinoma at least invades the lamina propria. Alcian blue stain highlights mucin * Discussed CT scan reports with patient at bedside this morning during rounds. 3) Atrial fibrillation with RVR Assessment/Plan * Cardiology (Dr. Chatman) on the case-->help appreciated * Contraindication indication to chemical anticoagulation secondary to GI bleed/ melanotic stool * Cardizem 60mg PO Q8H * Bisoprolol/hctz 5-6/25mg 1 tab PO daily * Pending echocardiogram 4) Hypertension Assessment/Plan * Bisoprolol/hctz 5-6/25mg 1 tab PO daily * Cardizem 60mg PO Q8H * Aldactone 25mg PO daily 5) History of CHF Assessment/Plan * unknown if systolic vs diastolic * Echo pending official * Contraindication indication to chemical anticoagulation secondary to GI bleed/ melanotic stool * Bisoprolol/hctz 5-6/25mg 1 tab PO daily * f/u to check fluid overload given recent blood transfusions 6) Depression Assessment/Plan * Haldol 5mg PO daily * [id number] POqHS * Trazodone 50mg PO HS * Seroquel 200mg PO qHS 7) Abnormal TSH Assessment/Plan * Repeat thyroid studies have normalized 8) Prophylaxis * Chemical anticoagulation contraindication secondary to melanotic stools and gi bleed * Protonix 40mg PO BID * Pastoral care referral given cancer diagnoses * PT/OT luz
[2018-07-31 08:14] LABS: BASO % 0.5 % (0.0-2.0); EOS # 0.2 K/uL (0.0-0.7); EOS % 2.2 % (0.0-4.0); HEMOGLOBIN 9.6 g/dL (11.0-16.0); LYMPH # 1.8 K/uL (1.0-4.3); LYMPH % 20.7 % (20.0-40.0); MEAN CELL VOLUME 88.1 fL (81.0-99.0); MEAN CORPUSCULAR HEMOGLOBIN 29.9 pg (27.0-31.0); MEAN PLATELET VOLUME 8.8 fL (7.2-11.7); MONO # 0.6 K/uL (0.0-0.8); MONO % 6.4 % (0.0-10.0); NEUT # 6.1 K/uL (1.8-7.0); NEUT % 70.2 % (50.0-75.0); NRBC % 0.3 % (0.0-2.0); PLATELET COUNT 253 K/uL (130-400); RBC 3.22 Mil/uL (3.80-5.20); RED CELL DISTRIBUTION WIDTH 15.3 % (11.5-14.5); WHITE BLOOD COUNT 8.7 K/uL (4.8-10.8)
[2018-07-31 08:30] LABS: INR 0.9; PROTHROMBIN TIME 10.2 SECONDS (9.7-12.2)
[2018-07-31 08:45] LABS: ALB/GLOB RATIO 1.4 (1.0-2.1); ALBUMIN 3.6 g/dL (3.5-5.0); ALT/SGPT 18 U/L (9-52); AST/SGOT 16 U/L (14-36); BLOOD UREA NITROGEN 22 mg/dL (7-17); GFR NON-AFRICAN AMERICAN 56
[2018-07-31] MEDS: Pantoprazole 40 mg EC Tab PO SCH ×2 (09:42→17:44)
[2018-07-31] MEDS: Sucralfate 1 gm/10 ml Oral Susp UD PO SCH ×4 (09:42→21:13)
[2018-07-31] MEDS: Bisoprolol-HCTZ 5-6.25 mg Tab PO SCH (09:42)
--- NOTE | 2018-07-31 09:55 | CP.PCM.PN ---
Subjective - Date & Time of Evaluation Date of Evaluation: 07/31/18 Time of Evaluation: 09:52 - Subjective Subjective: Hospitalist Service (Covering Dr. Mckeon until 08/03/18) Patient seen and examined this morning. Patient transferred out from the unit yesterdary afternoon. Patient denies chest pain, denies headache, denies abdominal pain, denies nausea , denies vomitting. Patient reports she has dark stools, stool is mixed with blood, had 2 episodes yesterday. Will need to f/u with GI if there are plans for colonoscopy. GI had signed off earlier in the admission; will reconsult. Objective - Vital Signs/Intake and Output Vital Signs (last 24 hours): Temp Pulse Resp BP Pulse Ox 97.6 F 95 H 19 123/68 97 07/31/18 08:18 07/31/18 08:23 07/31/18 08:18 07/31/18 08:18 07/31/18 08:18 - Medications Medications: Current Medications Bisoprolol Fumarate/HCTZ (Ziac 5-6.25 Mg) 1 tab PO DAILY [facility] Last Admin: 07/30/18 09:25 Dose: 1 tab Diltiazem HCl (Cardizem) 60 mg PO Q8H [facility] Last Admin: 07/31/18 04:58 Dose: 60 mg Haloperidol (Haldol) 5 mg PO DAILY [facility] Last Admin: 07/30/18 09:23 Dose: 5 mg Metoprolol Tartrate (Lopressor) 50 mg PO Q12H [facility] Last Admin: 07/27/18 23:43 Dose: 50 mg Pantoprazole Sodium (Protonix Ec Tab) 40 mg PO BID [facility] Last Admin: 07/30/18 17:07 Dose: 40 mg Quetiapine Fumarate (Seroquel) 200 mg PO HS [facility] Last Admin: 07/30/18 21:05 Dose: 200 mg Spironolactone (Aldactone) 25 mg PO DAILY [facility] Last Admin: 07/30/18 09:23 Dose: 25 mg Sucralfate (Carafate Oral Susp) 1 gm PO QID [facility] Last Admin: 07/30/18 21:05 Dose: 1 gm Temazepam (Restoril) 15 mg PO [facility] Last Admin: 07/30/18 21:05 Dose: 15 mg Trazodone HCl (Desyrel) 50 mg PO [facility] Last Admin: 07/30/18 21:05 Dose: 50 mg - Labs Labs: 07/31/18 08:07 07/31/18 08:07 PT 10.2 SECONDS (9.7-12.2) 07/31/18 08:07 INR 0.9 07/31/18 08:07 APTT 35 SECONDS (21-34) H 07/27/18 14:40 - Constitutional Appears: Non-toxic, No Acute Distress, Other (pale) - Head Exam Head Exam: NORMAL INSPECTION - Eye Exam Eye Exam: EOMI - ENT Exam ENT Exam: Mucous Membranes Moist - Respiratory Exam Respiratory Exam: Clear to Ausculation Bilateral, NORMAL BREATHING PATTERN. absent: Rales, Rhonchi, Wheezes - Cardiovascular Exam Cardiovascular Exam: REGULAR RHYTHM, +S1, +S2 - GI/Abdominal Exam GI & Abdominal Exam: Soft, Normal Bowel Sounds. absent: Distended, Firm, Guarding, Rigid, Tenderness, Rebound - Extremities Exam Extremities Exam: absent: Pedal Edema, Tenderness - Neurological Exam Neurological Exam: Alert, Awake, Oriented x3 - Psychiatric Exam Psychiatric exam: Normal Affect, Normal Mood - Skin Skin Exam: Dry, Intact, Pallor, Warm Assessment and Plan (1) Acute upper GI hemorrhage Status: Acute (2) Anemia Status: Acute (3) GE junction carcinoma Status: Acute (4) Rapid atrial fibrillation Status: Acute (5) Prophylactic measure Status: Acute Attending/Attestation - Attestation I have personally seen and examined this patient.: Yes I have fully participated in the care of the patient.: Yes I have reviewed all pertinent clinical information, including history, physical exam and plan: Yes Notes (Text): Hospitalist is covering Dr. Mckeon until August 03. Assessment/Plan 1) GI bleed Non-Bleeding Ulcer Hiatal Hernia Chronic Gastritis Melanotic Stool Assessment/Plan * GI (Dr. Gaines) on case-->help appreciated * S/P Upper endoscopy (07/27/18). Results are as follows: non-bleeding esophageal ulcer, injected and biopsied. Hiatal hernia. Chronic gastritis * Biopsy results show invasive adenocarcinoma, mod to poor differentiated and invasion to lamina propria at GE junction * Protonix 40mg PO BID * Sulfrate 1 gm PO BID * No nsaids/aspirin 2) Invasive mucinous adenocarcinoma Anemia of Acute Blood Loss Assessment/Plan * GI (Dr. Gaines) on case-->help appreciated * see above. * Will reconsult given melanotic stool/blood in cover in stool if there are plans for colonoscopy? * Heme/onc, Dr. Fernandez on case-->> * CT Abdomen/Pelvis (07/30/18): thickening of the gastroesophageal junction may reflect reported history of esophageal cancer. indeterminate 2.0 cm left adrenal nodule * Surgery, Dr. Ma on case * Recommend for PET and EUS * S/P Upper endoscopy (07/27/18). * Pathology (GE junction): invasive adenocarcinoma. moderate to poorly differentiated/ invasive carcinoma at least invades the lamina propria. Alcian blue stain highlights mucin * Discussed CT scan reports with patient at bedside yesterday 3) Atrial fibrillation with RVR Assessment/Plan * Cardiology (Dr. Chatman) on the case-->help appreciated * Contraindication indication to chemical anticoagulation secondary to GI bleed/ melanotic stool * Cardizem 60mg PO Q8H * Bisoprolol/hctz 5-6/25mg 1 tab PO daily * Pending echocardiogram 4) Hypertension Assessment/Plan * Bisoprolol/hctz 5-6/25mg 1 tab PO daily * Cardizem 60mg PO Q8H * Aldactone 25mg PO daily 5) History of CHF Assessment/Plan * unknown if systolic vs diastolic * Echo pending official * Contraindication indication to chemical anticoagulation secondary to GI bleed/ melanotic stool * Bisoprolol/hctz 5-6/25mg 1 tab PO daily 6) Depression Assessment/Plan * Haldol 5mg PO daily * [id number] POqHS * Trazodone 50mg PO HS * Seroquel 200mg PO qHS 7) Abnormal TSH Assessment/Plan * Repeat thyroid studies have normalized 8) Prophylaxis * Chemical anticoagulation contraindication secondary to melanotic stools and gi bleed * Protonix 40mg PO BID * Pastoral care referral given cancer diagnoses * PT/OT eval Disposition: will need to f/u with GI given patient reporting melanotic stool and stool covered in blood in regards to possible colonoscopy. cardiology noted unable to chemical anticoagulate given melanotic stool. pending official echocardiogram.
--- NOTE | 2018-07-31 10:14 | CP.PCM.PN ---
Subjective - Date & Time of Evaluation Date of Evaluation: 07/31/18 Time of Evaluation: 09:15 - Subjective Subjective: Patient seen and examined. No acute events over night. Pathology reviewed. Patient will need EUS for accurate T staging. D/w Dr. Ma. Objective - Vital Signs/Intake and Output Vital Signs (last 24 hours): Temp Pulse Resp BP Pulse Ox 97.6 F 95 H 19 123/68 97 07/31/18 08:18 07/31/18 08:23 07/31/18 08:18 07/31/18 08:18 07/31/18 08:18 - Medications Medications: Current Medications Bisoprolol Fumarate/HCTZ (Ziac 5-6.25 Mg) 1 tab PO DAILY [facility] Last Admin: 07/31/18 09:42 Dose: 1 tab Diltiazem HCl (Cardizem) 60 mg PO Q8H [facility] Last Admin: 07/31/18 04:58 Dose: 60 mg Haloperidol (Haldol) 5 mg PO DAILY [facility] Last Admin: 07/31/18 09:42 Dose: 5 mg Metoprolol Tartrate (Lopressor) 50 mg PO Q12H [facility] Last Admin: 07/27/18 23:43 Dose: 50 mg Pantoprazole Sodium (Protonix Ec Tab) 40 mg PO BID [facility] Last Admin: 07/31/18 09:42 Dose: 40 mg Quetiapine Fumarate (Seroquel) 200 mg PO HS [facility] Last Admin: 07/30/18 21:05 Dose: 200 mg Spironolactone (Aldactone) 25 mg PO DAILY [facility] Last Admin: 07/31/18 09:42 Dose: 25 mg Sucralfate (Carafate Oral Susp) 1 gm PO QID [facility] Last Admin: 07/31/18 09:42 Dose: 1 gm Temazepam (Restoril) 15 mg PO HS [facility] Last Admin: 07/30/18 21:05 Dose: 15 mg Trazodone HCl (Desyrel) 50 mg PO HS [facility] Last Admin: 07/30/18 21:05 Dose: 50 mg - Labs Labs: 07/31/18 08:07 07/31/18 08:07 PT 10.2 SECONDS (9.7-12.2) 07/31/18 08:07 INR 0.9 07/31/18 08:07 APTT 35 SECONDS (21-34) H 07/27/18 14:40 - Constitutional Appears: No Acute Distress - Head Exam Head Exam: NORMOCEPHALIC - Eye Exam Eye Exam: EOMI, Normal appearance - ENT Exam ENT Exam: Mucous Membranes Moist - Respiratory Exam Respiratory Exam: NORMAL BREATHING PATTERN - Cardiovascular Exam Cardiovascular Exam: +S1, +S2 - GI/Abdominal Exam GI & Abdominal Exam: Soft - Neurological Exam Neurological Exam: Alert, Awake, Oriented x3 - Skin Skin Exam: Dry, Intact, Warm Assessment and Plan - Assessment and Plan (Free Text) Assessment: 63F w. adenocarcinoma of GE jxn Plan: -Will need EUS -CEA levels -f/u oncology recommendations -will follow -d/w Dr. Francesca Dumont PGY3
[2018-07-31 10:27] LABS: BANDS 7 % (0-2); EOSINOPHIL 6 % (0-4); LYMPHOCYTE 14 % (20-40); METAMYELOCYTE 1 % (0-0); MONOCYTE 6 % (0-10); NEUTROPHIL 66 % (50-75); NUCLEATED RED BLOOD CELL 2 % (0-0); TOTAL CELLS COUNTED 100
[2018-07-31 10:28] LABS: ANISOCYTOSIS SLIGHT; LARGE PLATELETS PRESENT; PLATELET ESTIMATE NORMAL (NORMAL); POLYCHROMIC SLIGHT
--- NOTE | 2018-07-31 12:40 | CP.PCM.PN ---
<Carlin Busch - Last Filed: 07/31/18 15:16> Subjective - Date & Time of Evaluation Date of Evaluation: 07/31/18 Time of Evaluation: 12:40 - Subjective Subjective: GI Fellow PGY4, Progress note. Patient is doing very well. She had BM recently and states "it was green". Nursing staff confirmed BM color. Hb stable. No nausea, vomiting. She is tolerating diet. Objective - Vital Signs/Intake and Output Vital Signs (last 24 hours): Temp Pulse Resp BP Pulse Ox 97.6 F 95 H 19 123/68 97 07/31/18 08:18 07/31/18 08:23 07/31/18 08:18 07/31/18 08:18 07/31/18 08:18 - Medications Medications: Current Medications Bisoprolol Fumarate/HCTZ (Ziac 5-6.25 Mg) 1 tab PO DAILY [facility] Last Admin: 07/31/18 09:42 Dose: 1 tab Diltiazem HCl (Cardizem) 60 mg PO Q8H [facility] Last Admin: 07/31/18 11:12 Dose: 60 mg Haloperidol (Haldol) 5 mg PO DAILY [facility] Last Admin: 07/31/18 09:42 Dose: 5 mg Metoprolol Tartrate (Lopressor) 50 mg PO Q12H [facility] Last Admin: 07/27/18 23:43 Dose: 50 mg Pantoprazole Sodium (Protonix Ec Tab) 40 mg PO BID [facility] Last Admin: 07/31/18 09:42 Dose: 40 mg Quetiapine Fumarate (Seroquel) 200 mg PO HS [facility] Last Admin: 07/30/18 21:05 Dose: 200 mg Spironolactone (Aldactone) 25 mg PO DAILY [facility] Last Admin: 07/31/18 09:42 Dose: 25 mg Sucralfate (Carafate Oral Susp) 1 gm PO QID [facility] Last Admin: 07/31/18 09:42 Dose: 1 gm Temazepam (Restoril) 15 mg PO HS [facility] Last Admin: 07/30/18 21:05 Dose: 15 mg Trazodone HCl (Desyrel) 50 mg PO HS [facility] Last Admin: 07/30/18 21:05 Dose: 50 mg - Labs Labs: 07/31/18 08:07 07/31/18 08:07 PT 10.2 SECONDS (9.7-12.2) 07/31/18 08:07 INR 0.9 07/31/18 08:07 APTT 35 SECONDS (21-34) H 07/27/18 14:40 - Constitutional Appears: Well, Non-toxic, No Acute Distress - Head Exam Head Exam: NORMAL INSPECTION - Eye Exam Eye Exam: Normal appearance - ENT Exam ENT Exam: Mucous Membranes Moist - Respiratory Exam Respiratory Exam: Clear to Ausculation Bilateral, NORMAL BREATHING PATTERN. absent: Wheezes - Cardiovascular Exam Cardiovascular Exam: REGULAR RHYTHM, +S1, +S2 - GI/Abdominal Exam GI & Abdominal Exam: Soft, Normal Bowel Sounds. absent: Tenderness - Extremities Exam Extremities Exam: Normal Inspection - Neurological Exam Neurological Exam: Alert, Awake, Oriented x3 - Psychiatric Exam Psychiatric exam: Normal Affect, Normal Mood - Skin Skin Exam: Dry, Normal Color Assessment and Plan - Assessment and Plan (Free Text) Assessment: 63F with hx of Afib on OAC, aspirin and recent NSAID use for arthritis presenting with syncope, anemia and melena on rectal exam due to upper GI bleed. #Acute blood loss anemia due to upper GI bleed: FC IIb ulcer near GE junction seen on EGD 07/28/18 s/p epi inj and gold probe treatment. #Esophageal Adenocarcinoma - see biopsy 07/28 #Afib on OAC #Arthritis taking NSAIDs #HTN #Psychiatric disorder Plan: - She understands her diagnosis and need for close follow up. - Surgical evaluation appreciated - Bloody stool reported this AM via primary. This was likely hemorrhoidal. Now green. No signs of major bleed on lab or vital. Asymptomatic. - She can have colonoscopy as outpt - Recommend f/u at tertiary center, [facility], for EUS and esophageal cancer surgery evaluation - Avoid ASA, NSAIDs <Mark Steel - Last Filed: 07/31/18 16:37> Objective - Vital Signs/Intake and Output Vital Signs (last 24 hours): Temp Pulse Resp BP Pulse Ox 98.1 F 93 H 20 113/77 98 07/31/18 15:00 07/31/18 15:00 07/31/18 15:00 07/31/18 15:00 07/31/18 15:00 - Medications Medications: Current Medications Bisoprolol Fumarate/HCTZ (Ziac 5-6.25 Mg) 1 tab PO DAILY [facility] Last Admin: 07/31/18 09:42 Dose: 1 tab Diltiazem HCl (Cardizem) 60 mg PO Q8H [facility] Last Admin: 07/31/18 11:12 Dose: 60 mg Haloperidol (Haldol) 5 mg PO DAILY [facility] Last Admin: 07/31/18 09:42 Dose: 5 mg Metoprolol Tartrate (Lopressor) 50 mg PO Q12H [facility] Last Admin: 07/27/18 23:43 Dose: 50 mg Pantoprazole Sodium (Protonix Ec Tab) 40 mg PO BID [facility] Last Admin: 07/31/18 09:42 Dose: 40 mg Quetiapine Fumarate (Seroquel) 200 mg PO [facility] Last Admin: 07/30/18 21:05 Dose: 200 mg Spironolactone (Aldactone) 25 mg PO DAILY [facility] Last Admin: 07/31/18 09:42 Dose: 25 mg Sucralfate (Carafate Oral Susp) 1 gm PO QID [facility] Last Admin: 07/31/18 13:19 Dose: 1 gm Temazepam (Restoril) 15 mg PO [facility] Last Admin: 07/30/18 21:05 Dose: 15 mg Trazodone HCl (Desyrel) 50 mg PO [facility] Last Admin: 07/30/18 21:05 Dose: 50 mg - Labs Labs: 07/31/18 08:07 07/31/18 08:07 PT 10.2 SECONDS (9.7-12.2) 07/31/18 08:07 INR 0.9 07/31/18 08:07 APTT 35 SECONDS (21-34) H 07/27/18 14:40 Attending/Attestation - Attestation I have personally seen and examined this patient.: Yes I have fully participated in the care of the patient.: Yes I have reviewed all pertinent clinical information, including history, physical exam and plan: Yes Notes (Text): 07/31/18 16:35 Chart reviewed. The patient was interviewed and examined this afternoon. Offers no complaints. Agree with the above findings. Assessment and recommendations, as outlined above, were discussed with Dr. Busch. Discussed with pt's nurse. Esophageal findings work up as OP. The Pt is aware.
[2018-07-31 15:51] VITALS: RESP 20
--- NOTE | 2018-07-31 18:13 | PN ---
Copied To: Silas Mar MD Attending MD: Silas Mar MD DATE: 07/31/2018 SUBJECTIVE: The patient denies chest pain, palpitations, or dizziness. She denies any melena today. PHYSICAL EXAMINATION VITAL SIGNS: Blood pressure 123/68, heart rate 90, temperature 97.6, and respirations 19. HEENT: Normocephalic. CHEST: Clear. HEART: S1 and S2 regular. EXTREMITIES: No edema. LABORATORY DATA: Today's SMA -7 is within normal limits except for glucose of 147 and BUN of 22. Today's INR is 0.9. Hemoglobin and hematocrit are 9.6 and 28.4. White count and platelet count are within normal limits. ASSESSMENT: 1. Gastrointestinal bleeding. 2 Chronic atrial fibrillation. 3. Esophageal adenocarcinoma. 4. History of depression. 5. Hypertension. RECOMMENDATIONS: Continue Bisoprolol/hydrochlorothiazide 5/6.25 mg orally daily. Continue Seroquel 200 mg at bedtime, Lopressor 50 mg twice a day, Haldol 5 mg once a day, Cardizem 60 mg every 8 hours, and Aldactone 25 mg once a day, Silas Mar MD
--- NOTE | 2018-07-31 20:08 | CP.PCM.PN ---
Subjective - Date & Time of Evaluation Date of Evaluation: 07/30/18 Time of Evaluation: 19:00 - Subjective Subjective: No complaints. Objective - Vital Signs/Intake and Output Vital Signs (last 24 hours): Temp Pulse Resp BP Pulse Ox 98.1 F 94 H 20 113/77 98 07/31/18 15:00 07/31/18 18:00 07/31/18 15:00 07/31/18 15:00 07/31/18 15:00 - Medications Medications: Current Medications Bisoprolol Fumarate/HCTZ (Ziac 5-6.25 Mg) 1 tab PO DAILY [facility] Last Admin: 07/31/18 09:42 Dose: 1 tab Diltiazem HCl (Cardizem) 60 mg PO Q8H [facility] Last Admin: 07/31/18 11:12 Dose: 60 mg Haloperidol (Haldol) 5 mg PO DAILY [facility] Last Admin: 07/31/18 09:42 Dose: 5 mg Metoprolol Tartrate (Lopressor) 50 mg PO Q12H [facility] Last Admin: 07/27/18 23:43 Dose: 50 mg Pantoprazole Sodium (Protonix Ec Tab) 40 mg PO BID [facility] Last Admin: 07/31/18 17:44 Dose: 40 mg Quetiapine Fumarate (Seroquel) 200 mg PO [facility] Last Admin: 07/30/18 21:05 Dose: 200 mg Spironolactone (Aldactone) 25 mg PO DAILY [facility] Last Admin: 07/31/18 09:42 Dose: 25 mg Sucralfate (Carafate Oral Susp) 1 gm PO QID [facility] Last Admin: 07/31/18 17:44 Dose: 1 gm Temazepam (Restoril) 15 mg PO [facility] Last Admin: 07/30/18 21:05 Dose: 15 mg Trazodone HCl (Desyrel) 50 mg PO [facility] Last Admin: 07/30/18 21:05 Dose: 50 mg - Labs Labs: 07/31/18 08:07 07/31/18 08:07 PT 10.2 SECONDS (9.7-12.2) 07/31/18 08:07 INR 0.9 07/31/18 08:07 APTT 35 SECONDS (21-34) H 07/27/18 14:40 - Head Exam Head Exam: ATRAUMATIC - Eye Exam Eye Exam: Normal appearance - ENT Exam ENT Exam: Mucous Membranes Dry - Respiratory Exam Respiratory Exam: NORMAL BREATHING PATTERN - Cardiovascular Exam Cardiovascular Exam: +S1, +S2 - GI/Abdominal Exam GI & Abdominal Exam: Normal Bowel Sounds Assessment and Plan (1) Anemia Assessment & Plan: anemia w/u sent GI blood loss from likely GE junction tumor Status: Acute (2) GE junction carcinoma Assessment & Plan: CT staging shows adrenal nodule will need PET CT scan to further stage if no distant mets, will need EUS to evaluate depth of tumor invasion CT surgery f/u Status: Acute
--- NOTE | 2018-07-31 20:09 | CP.PCM.PN ---
Subjective - Date & Time of Evaluation Date of Evaluation: 07/31/18 Time of Evaluation: 18:30 - Subjective Subjective: Feeling better. Objective - Vital Signs/Intake and Output Vital Signs (last 24 hours): Temp Pulse Resp BP Pulse Ox 98.1 F 94 H 20 113/77 98 07/31/18 15:00 07/31/18 18:00 07/31/18 15:00 07/31/18 15:00 07/31/18 15:00 - Medications Medications: Current Medications Bisoprolol Fumarate/HCTZ (Ziac 5-6.25 Mg) 1 tab PO DAILY [facility] Last Admin: 07/31/18 09:42 Dose: 1 tab Diltiazem HCl (Cardizem) 60 mg PO Q8H [facility] Last Admin: 07/31/18 11:12 Dose: 60 mg Haloperidol (Haldol) 5 mg PO DAILY [facility] Last Admin: 07/31/18 09:42 Dose: 5 mg Metoprolol Tartrate (Lopressor) 50 mg PO Q12H [facility] Last Admin: 07/27/18 23:43 Dose: 50 mg Pantoprazole Sodium (Protonix Ec Tab) 40 mg PO BID [facility] Last Admin: 07/31/18 17:44 Dose: 40 mg Quetiapine Fumarate (Seroquel) 200 mg PO [facility] Last Admin: 07/30/18 21:05 Dose: 200 mg Spironolactone (Aldactone) 25 mg PO DAILY [facility] Last Admin: 07/31/18 09:42 Dose: 25 mg Sucralfate (Carafate Oral Susp) 1 gm PO QID [facility] Last Admin: 07/31/18 17:44 Dose: 1 gm Temazepam (Restoril) 15 mg PO [facility] Last Admin: 07/30/18 21:05 Dose: 15 mg Trazodone HCl (Desyrel) 50 mg PO [facility] Last Admin: 07/30/18 21:05 Dose: 50 mg - Labs Labs: 07/31/18 08:07 07/31/18 08:07 PT 10.2 SECONDS (9.7-12.2) 07/31/18 08:07 INR 0.9 07/31/18 08:07 APTT 35 SECONDS (21-34) H 07/27/18 14:40 - Head Exam Head Exam: ATRAUMATIC - Eye Exam Eye Exam: Normal appearance - ENT Exam ENT Exam: Mucous Membranes Dry - Respiratory Exam Respiratory Exam: NORMAL BREATHING PATTERN - Cardiovascular Exam Cardiovascular Exam: +S1, +S2 - GI/Abdominal Exam GI & Abdominal Exam: Normal Bowel Sounds Assessment and Plan (1) Anemia Assessment & Plan: f/u anemia w/u Status: Acute (2) GE junction carcinoma Assessment & Plan: CT staging shows adrenal nodule will need PET CT scan to further stage if no distant mets, will need EUS to evaluate depth of tumor invasion CT surgery f/u Status: Acute
[2018-08-01 07:46] LABS: ALB/GLOB RATIO 1.4 (1.0-2.1); ALBUMIN 3.8 g/dL (3.5-5.0); ALT/SGPT 21 U/L (9-52); AST/SGOT 15 U/L (14-36); BLOOD UREA NITROGEN 21 mg/dL (7-17); CALCIUM 9.7 mg/dl (8.6-10.4); GFR NON-AFRICAN AMERICAN 56
[2018-08-01 08:16] LABS: FERRITIN 20.5 ng/mL
--- NOTE | 2018-08-01 08:25 | CP.PCM.PN ---
Subjective - Date & Time of Evaluation Date of Evaluation: 08/01/18 Time of Evaluation: 08:24 - Subjective Subjective: CT surgery progress note for Dr. Carrol Moncada, PGY-2 Pt S & E at bedside at 0655 Pt reports tolerating diet, no bleeding (hemopytsis or hematemesis). Denies chest pain, SOB, BM. No acute events overnight. Objective - Vital Signs/Intake and Output Vital Signs (last 24 hours): Temp Pulse Resp BP Pulse Ox 98.0 F 77 20 125/72 96 08/01/18 07:07 08/01/18 07:07 08/01/18 07:07 08/01/18 07:07 08/01/18 07:07 - Medications Medications: Current Medications Bisoprolol Fumarate/HCTZ (Ziac 5-6.25 Mg) 1 tab PO DAILY [facility] Last Admin: 07/31/18 09:42 Dose: 1 tab Diltiazem HCl (Cardizem) 60 mg PO Q8H [facility] Last Admin: 08/01/18 03:08 Dose: 60 mg Haloperidol (Haldol) 5 mg PO DAILY [facility] Last Admin: 07/31/18 09:42 Dose: 5 mg Metoprolol Tartrate (Lopressor) 50 mg PO Q12H [facility] Last Admin: 07/27/18 23:43 Dose: 50 mg Pantoprazole Sodium (Protonix Ec Tab) 40 mg PO BID [facility] Last Admin: 07/31/18 17:44 Dose: 40 mg Quetiapine Fumarate (Seroquel) 200 mg PO HS [facility] Last Admin: 07/31/18 21:12 Dose: 200 mg Spironolactone (Aldactone) 25 mg PO DAILY [facility] Last Admin: 07/31/18 09:42 Dose: 25 mg Sucralfate (Carafate Oral Susp) 1 gm PO QID [facility] Last Admin: 07/31/18 21:13 Dose: 1 gm Temazepam (Restoril) 15 mg PO HS [facility] Last Admin: 07/31/18 21:12 Dose: 15 mg Trazodone HCl (Desyrel) 50 mg PO HS [facility] Last Admin: 07/31/18 21:13 Dose: 50 mg - Labs Labs: 07/31/18 08:07 08/01/18 07:22 PT 10.2 SECONDS (9.7-12.2) 07/31/18 08:07 INR 0.9 07/31/18 08:07 APTT 35 SECONDS (21-34) H 07/27/18 14:40 - Constitutional Appears: Non-toxic, No Acute Distress - Head Exam Head Exam: ATRAUMATIC, NORMAL INSPECTION, NORMOCEPHALIC - Eye Exam Eye Exam: EOMI, Normal appearance - ENT Exam ENT Exam: Mucous Membranes Moist, Normal Exam - Neck Exam Neck Exam: Full ROM, Normal Inspection - Respiratory Exam Respiratory Exam: NORMAL BREATHING PATTERN. absent: Chest Wall Tenderness - Cardiovascular Exam Cardiovascular Exam: REGULAR RHYTHM, +S1, +S2 - GI/Abdominal Exam GI & Abdominal Exam: Soft. absent: Distended, Tenderness - Neurological Exam Neurological Exam: Alert, Awake, CN II-XII Intact, Oriented x3 - Psychiatric Exam Psychiatric exam: Normal Affect, Normal Mood - Skin Skin Exam: Dry, Intact, Normal Color, Warm Assessment and Plan - Assessment and Plan (Free Text) Assessment: 63F w/adenocarcinoma of GE junction Plan: Will need EUS for accurate T staging CEA WNL - 0.4 Onc recs- PET scan for further staging, EUS for tumor invasion depth if no distant mets Will follow Will SHANICE Moncada, PGY-2
[2018-08-01 08:46] LABS: FOLATE 14.1 ng/mL
[2018-08-01] MEDS: Bisoprolol-HCTZ 5-6.25 mg Tab PO SCH (10:07)
[2018-08-01] MEDS: Pantoprazole 40 mg EC Tab PO SCH (10:07)
[2018-08-01] MEDS: Sucralfate 1 gm/10 ml Oral Susp UD PO SCH ×2 (10:08→13:19)
--- NOTE | 2018-08-01 15:01 | CP.PCM.PN ---
<Calrin Busch - Last Filed: 08/01/18 17:42> Subjective - Date & Time of Evaluation Date of Evaluation: 08/01/18 Time of Evaluation: 15:01 - Subjective Subjective: GI Fellow PGY4 No complaints. tolerating diet. admits brown stool. 5pt ROS neg except for above. Objective - Vital Signs/Intake and Output Vital Signs (last 24 hours): Temp Pulse Resp BP Pulse Ox 98.0 F 77 20 129/80 96 08/01/18 07:07 08/01/18 12:12 08/01/18 07:07 08/01/18 12:12 08/01/18 07:07 - Medications Medications: Current Medications Bisoprolol Fumarate/HCTZ (Ziac 5-6.25 Mg) 1 tab PO DAILY [facility] Last Admin: 08/01/18 10:07 Dose: 1 tab Diltiazem HCl (Cardizem) 60 mg PO Q8H [facility] Last Admin: 08/01/18 12:11 Dose: 60 mg Haloperidol (Haldol) 5 mg PO DAILY [facility] Last Admin: 08/01/18 10:07 Dose: 5 mg Metoprolol Tartrate (Lopressor) 50 mg PO Q12H [facility] Last Admin: 07/27/18 23:43 Dose: 50 mg Pantoprazole Sodium (Protonix Ec Tab) 40 mg PO BID [facility] Last Admin: 08/01/18 10:07 Dose: 40 mg Quetiapine Fumarate (Seroquel) 200 mg PO [facility] Last Admin: 07/31/18 21:12 Dose: 200 mg Spironolactone (Aldactone) 25 mg PO DAILY [facility] Last Admin: 08/01/18 10:07 Dose: 25 mg Sucralfate (Carafate Oral Susp) 1 gm PO QID [facility] Last Admin: 08/01/18 13:19 Dose: 1 gm Temazepam (Restoril) 15 mg PO HS [facility] Last Admin: 07/31/18 21:12 Dose: 15 mg Trazodone HCl (Desyrel) 50 mg PO HS [facility] Last Admin: 07/31/18 21:13 Dose: 50 mg - Labs Labs: 07/31/18 08:07 08/01/18 07:22 PT 10.2 SECONDS (9.7-12.2) 07/31/18 08:07 INR 0.9 07/31/18 08:07 APTT 35 SECONDS (21-34) H 07/27/18 14:40 - Constitutional Appears: Well, No Acute Distress - Head Exam Head Exam: NORMAL INSPECTION - Eye Exam Eye Exam: Normal appearance - Respiratory Exam Respiratory Exam: Clear to Ausculation Bilateral, NORMAL BREATHING PATTERN - Cardiovascular Exam Cardiovascular Exam: REGULAR RHYTHM - GI/Abdominal Exam GI & Abdominal Exam: Soft, Normal Bowel Sounds. absent: Tenderness - Extremities Exam Extremities Exam: Normal Inspection - Neurological Exam Neurological Exam: Alert, Awake, Oriented x3 - Psychiatric Exam Psychiatric exam: Flat Affect, Normal Mood Assessment and Plan - Assessment and Plan (Free Text) Assessment: 63F with hx of Afib on OAC, aspirin and recent NSAID use for arthritis presenting with syncope, anemia and melena on rectal exam due to upper GI bleed. #Acute blood loss anemia due to upper GI bleed: FC IIb ulcer near GE junction seen on EGD 07/28/18 s/p epi inj and gold probe treatment. #Esophageal Adenocarcinoma - see biopsy 07/28 #Adrenal mass, 2cm #Afib on OAC #Arthritis taking NSAIDs #HTN #Psychiatric disorder Plan: - She understands her diagnosis and need for close follow up. - Surgical evaluation appreciated - Brown stool today - She can have colonoscopy as outpt - Recommend f/u at tertiary center, [facility], for EUS and esophageal cancer surgery evaluation. - PET scan per Oncology - Avoid ASA, NSAIDs - We will sign off. Please call if needed. <Mark Steel - Last Filed: 08/01/18 18:19> Objective - Vital Signs/Intake and Output Vital Signs (last 24 hours): Temp Pulse Resp BP Pulse Ox 98.1 F 86 20 121/80 98 08/01/18 15:06 08/01/18 15:06 08/01/18 15:06 08/01/18 15:06 08/01/18 15:06 - Medications Medications: Current Medications Bisoprolol Fumarate/HCTZ (Ziac 5-6.25 Mg) 1 tab PO DAILY [facility] Last Admin: 08/01/18 10:07 Dose: 1 tab Diltiazem HCl (Cardizem) 60 mg PO Q8H [facility] Last Admin: 08/01/18 12:11 Dose: 60 mg Haloperidol (Haldol) 5 mg PO [facility]ILY [facility] Last Admin: 08/01/18 10:07 Dose: 5 mg Metoprolol Tartrate (Lopressor) 50 mg PO Q12H [facility] Last Admin: 07/27/18 23:43 Dose: 50 mg Pantoprazole Sodium (Protonix Ec Tab) 40 mg PO BID [facility] Last Admin: 08/01/18 10:07 Dose: 40 mg Quetiapine Fumarate (Seroquel) 200 mg PO [facility] Last Admin: 07/31/18 21:12 Dose: 200 mg Spironolactone (Aldactone) 25 mg PO [facility]ILY [facility] Last Admin: 08/01/18 10:07 Dose: 25 mg Sucralfate (Carafate Oral Susp) 1 gm PO QID [facility] Last Admin: 08/01/18 13:19 Dose: 1 gm Temazepam (Restoril) 15 mg PO [facility] Last Admin: 07/31/18 21:12 Dose: 15 mg Trazodone HCl (Desyrel) 50 mg PO [facility] Last Admin: 07/31/18 21:13 Dose: 50 mg - Labs Labs: 07/31/18 08:07 08/01/18 07:22 PT 10.2 SECONDS (9.7-12.2) 07/31/18 08:07 INR 0.9 07/31/18 08:07 APTT 35 SECONDS (21-34) H 07/27/18 14:40 Attending/Attestation - Attestation I have personally seen and examined this patient.: Yes I have fully participated in the care of the patient.: Yes I have reviewed all pertinent clinical information, including history, physical exam and plan: Yes Notes (Text): 08/01/18 18:18 Chart reviewed. The patient was interviewed and examined this evening. Clinically the same. No dyspepsia, dysphagia, odynophagia, or chest pain. No stigmata of overt, ongoing gastrointestinal blood loss. Assessment and recommendations, as outlined above, were discussed with Dr. Busch. Discussed with pt's nurse.
[2018-08-01 16:07] VITALS: BP 121/80; PULSE 86; TEMP 98.1; O2SAT 98
--- NOTE | 2018-08-01 20:56 | CP.PCM.DIS ---
<Osbaldo Tarango - Last Filed: 08/01/18 20:11> Provider - Provider Date of Admission: 07/27/18 18:32 Attending physician: Candice Mckeon MD Time Spent in preparation of Discharge (in minutes): 45 Diagnosis - Discharge Diagnosis (1) Acute upper GI hemorrhage Status: Acute (2) Anemia Status: Acute (3) GE junction carcinoma Status: Acute Comment: Newly diagnosed Hospital Course - Lab Results Lab Results: Micro Results 07/27/18 16:00 Blood Blood Culture - Final NO GROWTH AFTER 5 DAYS 07/27/18 16:00 Blood Gram Stain - Final TEST NOT PERFORMED 07/27/18 15:30 Blood Blood Culture - Final NO GROWTH AFTER 5 DAYS 07/27/18 15:30 Blood Gram Stain - Final TEST NOT PERFORMED 07/30/18 16:27 Naris MRSA Culture - Final MRSA NOT DETECTED 07/28/18 06:18 Nose MRSA Culture (Admit) - Final MRSA NOT DETECTED 07/27/18 15:51 Urine Urine Culture - Final No Growth (<1,000 CFU/ML) Most Recent Lab Values WBC 8.7 K/uL (4.8-10.8) 07/31/18 08:07 RBC 3.22 Mil/uL (3.80-5.20) L 07/31/18 08:07 Hgb 9.6 g/dL (11.0-16.0) L 07/31/18 08:07 Hct 28.4 % (34.0-47.0) L 07/31/18 08:07 MCV 88.1 fL (81.0-99.0) 07/31/18 08:07 MCH 29.9 pg (27.0-31.0) 07/31/18 08:07 MCHC 34.0 g/dL (33.0-37.0) 07/31/18 08:07 RDW 15.3 % (11.5-14.5) H 07/31/18 08:07 Plt Count 253 K/uL (130-400) 07/31/18 08:07 MPV 8.8 fL (7.2-11.7) 07/31/18 08:07 Neut % (Auto) 70.2 % (50.0-75.0) 07/31/18 08:07 Lymph % (Auto) 20.7 % (20.0-40.0) 07/31/18 08:07 Holmes % (Auto) 6.4 % (0.0-10.0) 07/31/18 08:07 Eos % (Auto) 2.2 % (0.0-4.0) 07/31/18 08:07 Baso % (Auto) 0.5 % (0.0-2.0) 07/31/18 08:07 Neut # (Auto) 6.1 K/uL (1.8-7.0) 07/31/18 08:07 Lymph # (Auto) 1.8 K/uL (1.0-4.3) 07/31/18 08:07 Holmes # (Auto) 0.6 K/uL (0.0-0.8) 07/31/18 08:07 Eos # (Auto) 0.2 K/uL (0.0-0.7) 07/31/18 08:07 Baso # (Auto) 0.0 K/uL (0.0-0.2) 07/31/18 08:07 Neutrophils % (Manual) 66 % (50-75) 07/31/18 08:07 Band Neutrophils % 7 % (0-2) H 07/31/18 08:07 Lymphocytes % (Manual) 14 % (20-40) L 07/31/18 08:07 Monocytes % (Manual) 6 % (0-10) 07/31/18 08:07 Eosinophils % (Manual) 6 % (0-4) H 07/31/18 08:07 Metamyelocytes % 1 % (0-0) H 07/31/18 08:07 Nucleated RBC % 2 % (0-0) H 07/31/18 08:07 Platelet Estimate Normal (NORMAL) 07/31/18 08:07 Large Platelets Present 07/31/18 08:07 Polychromasia Slight 07/31/18 08:07 Hypochromasia (manual) Slight 07/27/18 14:40 Anisocytosis (manual) Slight 07/31/18 08:07 Retic Count 7.6 % (0.5-1.5) H 08/01/18 07:22 PT 10.2 SECONDS (9.7-12.2) 07/31/18 08:07 INR 0.9 07/31/18 08:07 APTT 35 SECONDS (21-34) H 07/27/18 14:40 pO2 20 mm/Hg (30-55) L 07/27/18 16:10 VBG pH 7.41 (7.32-7.43) 07/27/18 16:10 VBG pCO2 39 mmHg (40-60) L 07/27/18 16:10 VBG HCO3 23.2 mmol/L 07/27/18 16:10 VBG Total CO2 25.9 mmol/L (22-28) 07/27/18 16:10 VBG O2 Sat (Calc) 29.3 % (40-65) L 07/27/18 16:10 VBG Base Excess 0.1 mmol/L (0.0-2.0) 07/27/18 16:10 VBG Potassium 4.1 mmol/L (3.6-5.2) 07/27/18 16:10 Sodium 143.0 mmol/l (132-148) 07/27/18 16:10 Chloride 112.0 mmol/L (98-107) H 07/27/18 16:10 Glucose 203 mg/dl (65-105) H 07/27/18 16:10 Lactate 2.5 mmol/L (0.7-2.1) H 07/27/18 16:10 FiO2 21.0 % 07/27/18 16:10 Sodium 139 mmol/L (132-148) 08/01/18 07:22 Potassium 4.6 mmol/L (3.6-5.2) 08/01/18 07:22 Chloride 102 mmol/L (98-107) 08/01/18 07:22 Carbon Dioxide 25 mmol/L (22-30) 08/01/18 07:22 Anion Gap 16 (10-20) 08/01/18 07:22 BUN 21 mg/dL (7-17) H 08/01/18 07:22 Creatinine 1.0 mg/dL (0.7-1.2) 08/01/18 07:22 Est GFR ( Amer) > 60 08/01/18 07:22 Est GFR (Non-Af Amer) 56 08/01/18 07:22 POC Glucose (mg/dL) 134 mg/dL (65-110) H 07/30/18 07:28 Random Glucose 138 mg/dL (65-105) H 08/01/18 07:22 Hemoglobin A1c 5.5 % (4.2-6.5) 07/30/18 06:02 Lactic Acid 1.4 mmol/L (0.7-2.1) 07/29/18 15:39 Calcium 9.7 mg/dl (8.6-10.4) 08/01/18 07:22 Phosphorus 5.0 mg/dL (2.5-4.5) H 08/01/18 07:22 Magnesium 2.0 mg/dL (1.6-2.3) 08/01/18 07:22 Ferritin 20.5 ng/mL 08/01/18 07:22 Total Bilirubin 0.5 mg/dL (0.2-1.3) 08/01/18 07:22 AST 15 U/L (14-36) 08/01/18 07:22 ALT 21 U/L (9-52) 08/01/18 07:22 Alkaline Phosphatase 69 U/L (38-126) 08/01/18 07:22 Troponin I < 0.0120 ng/mL (0.00-0.120) 07/27/18 14:40 NT-Pro-B Natriuret Pep 786 pg/mL (0-900) 07/27/18 14:40 Total Protein 6.4 g/dL (6.3-8.3) 08/01/18 07:22 Albumin 3.8 g/dL (3.5-5.0) 08/01/18 07:22 Globulin 2.6 gm/dL (2.2-3.9) 08/01/18 07:22 Albumin/Globulin Ratio 1.4 (1.0-2.1) 08/01/18 07:22 Triglycerides 270 mg/dL (0-149) H 07/30/18 06:01 Cholesterol 119 mg/dL (0-199) 07/30/18 06:01 LDL Cholesterol Direct 53 mg/dL (0-129) 07/30/18 06:01 HDL Cholesterol 25 mg/dL (30-70) L 07/30/18 06:01 Carcinoembryonic Ag 0.4 ng/mL (0-3.0) 07/30/18 06:01 Vitamin B12 311 pg/mL (239-931) 08/01/18 07:22 Folate 14.1 ng/mL 08/01/18 07:22 Free T4 1.21 ng/dL (0.78-2.19) 07/30/18 06:01 TSH 3rd Generation 3.94 mIU/L (0.46-4.68) 07/30/18 06:01 Venous Blood Potassium 4.1 mmol/L (3.6-5.2) 07/27/18 16:10 Urine Color Yellow (YELLOW) 07/27/18 15:51 Urine Clarity Clear (Clear) 07/27/18 15:51 Urine pH 5.0 (5.0-8.0) 07/27/18 15:51 Ur Specific [place] 1.017 (1.003-1.030) 07/27/18 15:51 Urine Protein Negative mg/dL (NEGATIVE) 07/27/18 15:51 Urine Glucose (UA) 1+ mg/dL (Normal) 07/27/18 15:51 Urine Ketones Negative mg/dL (NEGATIVE) 07/27/18 15:51 Urine Blood Negative (NEGATIVE) 07/27/18 15:51 Urine Nitrate Negative (NEGATIVE) 07/27/18 15:51 Urine Bilirubin Negative (NEGATIVE) 07/27/18 15:51 Urine Urobilinogen Normal mg/dL (0.2-1.0) 07/27/18 15:51 Ur Leukocyte Esterase Neg Jt/uL (Negative) 07/27/18 15:51 Urine WBC (Auto) < 1 /hpf (0-5) 07/27/18 15:51 Urine RBC (Auto) < 1 /hpf (0-3) 07/27/18 15:51 Ur Squamous Epith Cells < 1 /hpf (0-5) 07/27/18 15:51 Urine Bacteria Rare (<OCC) 07/27/18 15:51 Stool Occult Blood Positive (NEGATIVE) H 07/31/18 15:48 Blood Type O POSITIVE 07/28/18 01:22 Antibody Screen Negative 07/28/18 01:22 - Hospital Course Hospital Course: HPI: Marisol Phillips is a pleasant 63yo female with hx of afib on OAC and arthritis taking NSAIDs presenting with syncope. Patient fell after rising from the bathroom and admits LOC. She had been feeling lightheaded throughout the day. She also admits 1 episode of black emesis. She has no known history of GI bleed in the past. She does not drink alcohol and has no known liver disease. Hospital course: Pt was anemia 2/2 GI bleed. Over the course of her stay patient was tranfused 2 u PRBCS. Patient was complaining of blood in the stool for 2-3 days while she was hospitalized and stool guiac was positive Pt did have endoscopy and CT Abd/Pelvis as follows. Upper endoscopy (07/27/18): non-bleeding esophageal ulcer, injected and biopsied. Hiatal hernia. Chronic gastritis * Biopsy results show invasive adenocarcinoma, mod to poor differentiated and invasion to lamina propria at GE junction * CT Abdomen/Pelvis (07/30/18): thickening of the gastroesophageal junction may reflect reported history of esophageal cancer. indeterminate 2.0 cm left adrenal nodule * [Patient was treated medically during hospitalization. Antihypertensives were held and patient was treated with IV fluids. Patient was ultimately discharged with plans to follow up with GI, as well as plans for colonoscopy and EUS. Plan: Pt is cleared for discharge home per Dr. Quiroz. Patient is to follow with GI as outpatient following discharge. Patient is recommended to have a colonoscopy following discharge from the hospital, as well as an endoscopic ultrasound (EUS). GI recommends EUS to be performed at [facility]. Patient is to stop taking the following medications: Aspirin Xarelto Patient is to continue taking the following medications: Ziac 5-6.25 1 tab by mouth daily Cardizem 60 mg every 8 hours by mouth Haldol 5 mg mouth daily Lopressor 50mg tab by mouth every 12 hours Protonix 40 mg by mouth twice a day Seroquel 200mg by mouth before bed Aldactone 25 mg by mouth daily Carafate 4 times a day Restoril 15 mg by mouth at night Trazadone 50 mg by mouth in the evening Patient is to return to ER if symptoms return or worsen. Discharge Exam - Head Exam Head Exam: NORMAL INSPECTION - Eye Exam Eye Exam: EOMI, Normal appearance Pupil Exam: NORMAL ACCOMODATION, PERRL - Respiratory Exam Respiratory Exam: NORMAL BREATHING PATTERN, UNREMARKABLE - Cardiovascular Exam Cardiovascular Exam: REGULAR RHYTHM - GI/Abdominal Exam GI & Abdominal Exam: Normal Bowel Sounds. absent: Distended, Rebound, Rigid, Tenderness - Extremities Exam Extremities exam: pedal pulses present - Neurological Exam Neurological exam: Alert, CN II-XII Intact, Normal Gait, Oriented x3, Reflexes Normal - Psychiatric Exam Psychiatric exam: Normal Affect, Normal Mood - Skin Skin Exam: Dry, Intact, Normal Color, Warm Discharge Plan - Discharge Medications Prescriptions: diltiaZEM [Cardizem] 60 mg PO Q8H #90 tab Pantoprazole [Protonix EC Tab] 40 mg PO BID #60 ect Sucralfate [Carafate Tab] 1 gm PO ACHS #30 tab - Follow Up Plan Condition: SERIOUS Disposition: HOME/ ROUTINE Additional Instructions: Pt is cleared for discharge home per Dr. Quiroz. Patient is to follow with GI as outpatient following discharge. Patient is recommended to have a colonoscopy following discharge from the hospital, as well as an endoscopic ultrasound (EUS). GI recommends EUS to be performed at [facility]. Patient is to stop taking the following medications: Aspirin Xarelto Patient is to continue taking the following medications: Ziac 5-6.25 1 tab by mouth daily Cardizem 60 mg every 8 hours by mouth Haldol 5 mg mouth daily Lopressor 50mg tab by mouth every 12 hours Protonix 40 mg by mouth twice a day Seroquel 200mg by mouth before bed Aldactone 25 mg by mouth daily Carafate 4 times a day Restoril 15 mg by mouth at night Trazadone 50 mg by mouth in the evening Patient is to return to ER if symptoms return or worsen. Referrals: David Trujillo MD [Medical Doctor] - <Ramila Quiroz V - Last Filed: 08/01/18 22:52> Provider - Provider Date of Admission: 07/27/18 18:32 Attending physician: Candice Mckeon MD Diagnosis - Discharge Diagnosis (1) Acute upper GI hemorrhage Status: Acute (2) Anemia Status: Acute (3) GE junction carcinoma Status: Acute (4) Rapid atrial fibrillation Status: Acute (5) Prophylactic measure Status: Acute Hospital Course - Lab Results Lab Results: Micro Results 07/27/18 16:00 Blood Blood Culture - Final NO GROWTH AFTER 5 DAYS 07/27/18 16:00 Blood Gram Stain - Final TEST NOT PERFORMED 07/27/18 15:30 Blood Blood Culture - Final NO GROWTH AFTER 5 DAYS 07/27/18 15:30 Blood Gram Stain - Final TEST NOT PERFORMED 07/30/18 16:27 Naris MRSA Culture - Final MRSA NOT DETECTED 07/28/18 06:18 Nose MRSA Culture (Admit) - Final MRSA NOT DETECTED 07/27/18 15:51 Urine Urine Culture - Final No Growth (<1,000 CFU/ML) Most Recent Lab Values WBC 8.7 K/uL (4.8-10.8) 07/31/18 08:07 RBC 3.22 Mil/uL (3.80-5.20) L 07/31/18 08:07 Hgb 9.6 g/dL (11.0-16.0) L 07/31/18 08:07 Hct 28.4 % (34.0-47.0) L 07/31/18 08:07 MCV 88.1 fL (81.0-99.0) 07/31/18 08:07 MCH 29.9 pg (27.0-31.0) 07/31/18 08:07 MCHC 34.0 g/dL (33.0-37.0) 07/31/18 08:07 RDW 15.3 % (11.5-14.5) H 07/31/18 08:07 Plt Count 253 K/uL (130-400) 07/31/18 08:07 MPV 8.8 fL (7.2-11.7) 07/31/18 08:07 Neut % (Auto) 70.2 % (50.0-75.0) 07/31/18 08:07 Lymph % (Auto) 20.7 % (20.0-40.0) 07/31/18 08:07 Holmes % (Auto) 6.4 % (0.0-10.0) 07/31/18 08:07 Eos % (Auto) 2.2 % (0.0-4.0) 07/31/18 08:07 Baso % (Auto) 0.5 % (0.0-2.0) 07/31/18 08:07 Neut # (Auto) 6.1 K/uL (1.8-7.0) 07/31/18 08:07 Lymph # (Auto) 1.8 K/uL (1.0-4.3) 07/31/18 08:07 Holmes # (Auto) 0.6 K/uL (0.0-0.8) 07/31/18 08:07 Eos # (Auto) 0.2 K/uL (0.0-0.7) 07/31/18 08:07 Baso # (Auto) 0.0 K/uL (0.0-0.2) 07/31/18 08:07 Neutrophils % (Manual) 66 % (50-75) 07/31/18 08:07 Band Neutrophils % 7 % (0-2) H 07/31/18 08:07 Lymphocytes % (Manual) 14 % (20-40) L 07/31/18 08:07 Monocytes % (Manual) 6 % (0-10) 07/31/18 08:07 Eosinophils % (Manual) 6 % (0-4) H 07/31/18 08:07 Metamyelocytes % 1 % (0-0) H 07/31/18 08:07 Nucleated RBC % 2 % (0-0) H 07/31/18 08:07 Platelet Estimate Normal (NORMAL) 07/31/18 08:07 Large Platelets Present 07/31/18 08:07 Polychromasia Slight 07/31/18 08:07 Hypochromasia (manual) Slight 07/27/18 14:40 Anisocytosis (manual) Slight 07/31/18 08:07 Retic Count 7.6 % (0.5-1.5) H 08/01/18 07:22 PT 10.2 SECONDS (9.7-12.2) 07/31/18 08:07 INR 0.9 07/31/18 08:07 APTT 35 SECONDS (21-34) H 07/27/18 14:40 pO2 20 mm/Hg (30-55) L 07/27/18 16:10 VBG pH 7.41 (7.32-7.43) 07/27/18 16:10 VBG pCO2 39 mmHg (40-60) L 07/27/18 16:10 VBG HCO3 23.2 mmol/L 07/27/18 16:10 VBG Total CO2 25.9 mmol/L (22-28) 07/27/18 16:10 VBG O2 Sat (Calc) 29.3 % (40-65) L 07/27/18 16:10 VBG Base Excess 0.1 mmol/L (0.0-2.0) 07/27/18 16:10 VBG Potassium 4.1 mmol/L (3.6-5.2) 07/27/18 16:10 Sodium 143.0 mmol/l (132-148) 07/27/18 16:10 Chloride 112.0 mmol/L (98-107) H 07/27/18 16:10 Glucose 203 mg/dl (65-105) H 07/27/18 16:10 Lactate 2.5 mmol/L (0.7-2.1) H 07/27/18 16:10 FiO2 21.0 % 07/27/18 16:10 Sodium 139 mmol/L (132-148) 08/01/18 07:22 Potassium 4.6 mmol/L (3.6-5.2) 08/01/18 07:22 Chloride 102 mmol/L (98-107) 08/01/18 07:22 Carbon Dioxide 25 mmol/L (22-30) 08/01/18 07:22 Anion Gap 16 (10-20) 08/01/18 07:22 BUN 21 mg/dL (7-17) H 08/01/18 07:22 Creatinine 1.0 mg/dL (0.7-1.2) 08/01/18 07:22 Est GFR ( Amer) > 60 08/01/18 07:22 Est GFR (Non-Af Amer) 56 08/01/18 07:22 POC Glucose (mg/dL) 134 mg/dL (65-110) H 07/30/18 07:28 Random Glucose 138 mg/dL (65-105) H 08/01/18 07:22 Hemoglobin A1c 5.5 % (4.2-6.5) 07/30/18 06:02 Lactic Acid 1.4 mmol/L (0.7-2.1) 07/29/18 15:39 Calcium 9.7 mg/dl (8.6-10.4) 08/01/18 07:22 Phosphorus 5.0 mg/dL (2.5-4.5) H 08/01/18 07:22 Magnesium 2.0 mg/dL (1.6-2.3) 08/01/18 07:22 Ferritin 20.5 ng/mL 08/01/18 07:22 Total Bilirubin 0.5 mg/dL (0.2-1.3) 08/01/18 07:22 AST 15 U/L (14-36) 08/01/18 07:22 ALT 21 U/L (9-52) 08/01/18 07:22 Alkaline Phosphatase 69 U/L (38-126) 08/01/18 07:22 Troponin I < 0.0120 ng/mL (0.00-0.120) 07/27/18 14:40 NT-Pro-B Natriuret Pep 786 pg/mL (0-900) 07/27/18 14:40 Total Protein 6.4 g/dL (6.3-8.3) 08/01/18 07:22 Albumin 3.8 g/dL (3.5-5.0) 08/01/18 07:22 Globulin 2.6 gm/dL (2.2-3.9) 08/01/18 07:22 Albumin/Globulin Ratio 1.4 (1.0-2.1) 08/01/18 07:22 Triglycerides 270 mg/dL (0-149) H 07/30/18 06:01 Cholesterol 119 mg/dL (0-199) 07/30/18 06:01 LDL Cholesterol Direct 53 mg/dL (0-129) 07/30/18 06:01 HDL Cholesterol 25 mg/dL (30-70) L 07/30/18 06:01 Carcinoembryonic Ag 0.4 ng/mL (0-3.0) 07/30/18 06:01 Vitamin B12 311 pg/mL (239-931) 08/01/18 07:22 Folate 14.1 ng/mL 08/01/18 07:22 Free T4 1.21 ng/dL (0.78-2.19) 07/30/18 06:01 TSH 3rd Generation 3.94 mIU/L (0.46-4.68) 07/30/18 06:01 Venous Blood Potassium 4.1 mmol/L (3.6-5.2) 07/27/18 16:10 Urine Color Yellow (YELLOW) 07/27/18 15:51 Urine Clarity Clear (Clear) 07/27/18 15:51 Urine pH 5.0 (5.0-8.0) 07/27/18 15:51 Ur Specific [place] 1.017 (1.003-1.030) 07/27/18 15:51 Urine Protein Negative mg/dL (NEGATIVE) 07/27/18 15:51 Urine Glucose (UA) 1+ mg/dL (Normal) 07/27/18 15:51 Urine Ketones Negative mg/dL (NEGATIVE) 07/27/18 15:51 Urine Blood Negative (NEGATIVE) 07/27/18 15:51 Urine Nitrate Negative (NEGATIVE) 07/27/18 15:51 Urine Bilirubin Negative (NEGATIVE) 07/27/18 15:51 Urine Urobilinogen Normal mg/dL (0.2-1.0) 07/27/18 15:51 Ur Leukocyte Esterase Neg Jt/uL (Negative) 07/27/18 15:51 Urine WBC (Auto) < 1 /hpf (0-5) 07/27/18 15:51 Urine RBC (Auto) < 1 /hpf (0-3) 07/27/18 15:51 Ur Squamous Epith Cells < 1 /hpf (0-5) 07/27/18 15:51 Urine Bacteria Rare (<OCC) 07/27/18 15:51 Stool Occult Blood Positive (NEGATIVE) H 07/31/18 15:48 Blood Type O POSITIVE 07/28/18 01:22 Antibody Screen Negative 07/28/18 01:22 Clinical Quality Measures - CQM - Heart Failure Ejection Fraction: 40 % or Greater (pending official echo) Left Ventricular Function to be assessed after discharge: Yes LIDIA Inhibitor Prescribed: No Contraindication/Reason for not providing: not clinically indicated Beta-Kirstie Prescribed: Bisoprolol Angiotensin II Receptor Kirstie Prescribed: No Contraindication/Reason for not providing: not clinically indicated AnticoagulationTherapy for Atrial Fibrillation/Atrialflutter: No Contraindication/Reason for not providing: gi bleed Aldosterone Antagonist Prescribed: Yes Hydralazine Nitrate Prescribed: No Contraindication/Reason for not providing: not clinically indicated Implantable Cardioverter Defibrillator Therapy: No Contraindication/Reason for not providing: not clinically indicated Cardiac Resynchronization Therapy Prescribed: No Contraindication/Reason for not providing: not clinically indicated Will be discharged to: Home Follow Up Date (must be within 7 days from discharge): 08/08/18 Follow Up Time: 09:00 Attending/Attestation - Attestation I have personally seen and examined this patient.: Yes I have fully participated in the care of the patient.: Yes I have reviewed all pertinent clinical information, including history, physical exam and plan: Yes Notes (Text): Patient seen, examined and case discussed with center medical specialist. Patient seen at bedside. Denies acute complaints. No episodes of melanotic stool. Case discussed with cardiology, hold chemical anticoagulation at this time. 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 Morton this upcoming week. Patient recommended for outpatient colonoscopy with Dr. Gaines's group and recommended for EUS evaluation at [facility]. Patient to follow-up for outpatient PET scan for esophageal carcinoma with Dr. Fernandez. I updated patient's PMD, Dr. Mckeon upon discharge for follow-up as outpatient upon discharge. Medications on discharge: 1) Suculfrate 1 gram PO TID 2) Protonix 40mg PO BID 3) Cardizem 60mg PO Q8H To stop aspirin and eliquis upon discharge, f/u with cardiology and f/u GI. Will need EUS/PET scan for esophageal carcinoma. This is a summary of patient's hospitalization. Please see EMR for further detail of record. Discharge Diagnoses: 1) GI bleed Non-Bleeding Ulcer Hiatal Hernia Chronic Gastritis Melanotic Stool Assessment/Plan * GI (Dr. Gaines) on case-->help appreciated * S/P Upper endoscopy (07/27/18). Results are as follows: non-bleeding esophageal ulcer, injected and biopsied. Hiatal hernia. Chronic gastritis * Biopsy results show invasive adenocarcinoma, mod to poor differentiated and invasion to lamina propria at GE junction * Protonix 40mg PO BID * Sulfrate 1 gm PO BID * No nsaids/aspirin * Outpatient colonoscopy * EUS eval at [facility] 2) Invasive mucinous adenocarcinoma Anemia of Acute Blood Loss Assessment/Plan * GI (Dr. Gaines) on case-->help appreciated * see above. * Heme/onc, Dr. Fernandez on case-->> * CT Abdomen/Pelvis (07/30/18): thickening of the gastroesophageal junction may reflect reported history of esophageal cancer. indeterminate 2.0 cm left adrenal nodule * f/u PET scan * Surgery, Dr. Ma on case * Recommend for PET and EUS * S/P Upper endoscopy (07/27/18). * Pathology (GE junction): invasive adenocarcinoma. moderate to poorly differentiated/ invasive carcinoma at least invades the lamina propria. Alcian blue stain highlights mucin * Discussed CT scan reports with patient 3) Atrial fibrillation with RVR Assessment/Plan * Cardiology (Dr. Chatman) on the case-->help appreciated * Contraindication indication to chemical anticoagulation secondary to GI bleed/ melanotic stool * Cardizem 60mg PO Q8H * Bisoprolol/hctz 5-6/25mg 1 tab PO daily * Pending echocardiogram * No aspirin/chemical anticoagulation recommended upon discharge 4) Hypertension Assessment/Plan * Bisoprolol/hctz 5-6/25mg 1 tab PO daily * Cardizem 60mg PO Q8H * Aldactone 25mg PO daily 5) History of CHF Assessment/Plan * unknown if systolic vs diastolic * Echo pending official * Contraindication indication to chemical anticoagulation secondary to GI bleed/ melanotic stool * Bisoprolol/hctz 5-6/25mg 1 tab PO daily 6) Depression Assessment/Plan * Haldol 5mg PO daily * [id number] POqHS * Trazodone 50mg PO HS * Seroquel 200mg PO qHS 7) Abnormal TSH Assessment/Plan * Repeat thyroid studies have normalized 8) Prophylaxis * Chemical anticoagulation contraindication secondary to melanotic stools and gi bleed * Protonix 40mg PO BID * Pastoral care referral given cancer diagnoses * PT/OT andreaal
--- NOTE | 2018-08-01 23:20 | PN ---
Copied To: Silas Mar MD Attending MD: Silas Mar MD DATE: 08/01/2018 SUBJECTIVE: The patient denies any dizziness, palpitation, or headache. No reported melena. PHYSICAL EXAMINATION: VITAL SIGNS: Blood pressure 129/80, heart rate 77, temperature 98, and respirations 20. HEENT: Pale conjunctivae. CHEST: Clear. HEART: S1 and S2 are regular. EXTREMITIES: No edema. ASSESSMENT: 1. Chronic atrial fibrillation. 2. Recurrent melena. 3. Esophageal adenocarcinoma. RECOMMENDATIONS: Continue Aldactone 25 mg once a day, mg every 8 hours, Lopressor 50 mg twice a day, Seroquel 200 mg at bedtime, and bisoprolol/hydrochlorothiazide 5/6.25 mg orally daily. Case was discussed with Dr. Quiroz. Hold on any anticoagulation until the patient is cleared from GI point of view following colonoscopy, which is scheduled to be done as an outpatient. Silas Mar MD
--- NOTE | 2018-08-03 20:06 | CP.PCM.PN ---
Subjective - Date & Time of Evaluation Date of Evaluation: 08/01/18 Time of Evaluation: 12:00 - Subjective Subjective: No complaints. Objective - Vital Signs/Intake and Output Vital Signs (last 24 hours): Temp Pulse Resp BP Pulse Ox 98.1 F 86 20 121/80 98 08/01/18 15:06 08/01/18 15:06 08/01/18 15:06 08/01/18 15:06 08/01/18 15:06 - Labs Labs: 07/31/18 08:07 08/01/18 07:22 PT 10.2 SECONDS (9.7-12.2) 07/31/18 08:07 INR 0.9 07/31/18 08:07 APTT 35 SECONDS (21-34) H 07/27/18 14:40 - Head Exam Head Exam: ATRAUMATIC - Eye Exam Eye Exam: Normal appearance - ENT Exam ENT Exam: Mucous Membranes Dry - Respiratory Exam Respiratory Exam: NORMAL BREATHING PATTERN - Cardiovascular Exam Cardiovascular Exam: +S1, +S2 - GI/Abdominal Exam GI & Abdominal Exam: Normal Bowel Sounds Assessment and Plan (1) Anemia Assessment & Plan: iron deficiency anemia secondary to tumor bleed Status: Acute (2) GE junction carcinoma Assessment & Plan: CT staging shows adrenal nodule will need PET CT scan to further stage if no distant mets, will need EUS to evaluate depth of tumor invasion CT surgery f/u Status: Acute
== END 2018-08-01 18:30 | disposition home or self-care (01) | DRG 375 ==
LOC: C.ER 13:54 → C.9E 18:32 → C.6T 19:05 → C.9I 07-28 02:00 → C.5S 07-30 14:45
PROVIDERS: ADMIT Internal Medicine; ATTEND Internal Medicine
PROC: 3E0G8GC Introduction of Other Therapeutic Substance into Upper GI, Via Natural or Artificial Opening Endoscopic (ICD-10-PCS; 2018-07-28)
PROC: 0DB58ZX Excision of Esophagus, Via Natural or Artificial Opening Endoscopic, Diagnostic (ICD-10-PCS; 2018-07-28)
PROC: 30233N1 Transfusion of Nonautologous Red Blood Cells into Peripheral Vein, Percutaneous Approach (ICD-10-PCS; principal; 2018-07-29)
DX: C16.0 Malignant neoplasm of cardia (principal); K92.0 Hematemesis; K22.10 Ulcer of esophagus without bleeding; K92.1 Melena; I11.0 Hypertensive heart disease with heart failure; I50.9 Heart failure, unspecified; K27.9 Peptic ulcer, site unspecified, unspecified as acute or chronic, without hemorrhage or perforation; D50.0 Iron deficiency anemia secondary to blood loss (chronic); E03.9 Hypothyroidism, unspecified; E27.9 Disorder of adrenal gland, unspecified; E78.00 Pure hypercholesterolemia, unspecified; E78.1 Pure hyperglyceridemia; F31.9 Bipolar disorder, unspecified; I27.20 Pulmonary hypertension, unspecified; I48.2 Chronic atrial fibrillation; K29.50 Unspecified chronic gastritis without bleeding; K44.9 Diaphragmatic hernia without obstruction or gangrene; S80.212A Abrasion, left knee, initial encounter; W19.XXXA Unspecified fall, initial encounter; Z79.01 Long term (current) use of anticoagulants; Z80.1 Family history of malignant neoplasm of trachea, bronchus and lung